=== PATIENT | male | born 1980 | race Caucasian/White ===

== ENCOUNTER 2016-06-09 01:37 | Emergency (ER) | payer BC ==
[2016-06-09 01:41] VITALS: RESP 18; TEMP 97.7
[2016-06-09] MEDS ORDERED: SODIUM CHLORIDE 0.9% 500 ML IV STA (02:02)
[2016-06-09] MEDS ORDERED: ONDANSETRON 4 MG/2 ML VIAL IVP STA (02:02)
[2016-06-09] MEDS ORDERED: HYDROmorphone 1 MG/ML 1 ML SYRINGE IVP STA ×2 (02:02→04:08)
[2016-06-09 02:51] LABS: Basophils # (A) 0.1 k/uL (0-0.2); Basophils % (A) 1 %; CH 32.8; CHCM 36.2; Eosinophils # (A) 0.5 k/uL (0-0.7); Eosinophils % (A) 5 %; HCT 50.6 % (39.0-53.0); HDW 2.82; HGB 17.4 gm/dL (13.0-17.5); Luc # (Auto) 0.16; Luc % (Auto) 2; Lymphocytes # (A) 2.8 k/uL (1.0-4.8); Lymphocytes % (A) 26 %; MCH 31.3 pg (25.0-35.0); MCHC 34.4 g/dL (31.0-37.0); MCV 90.9 fL (80.0-100.0); Mean Platelet Volume 8.5; Monocytes # (A) 0.7 k/uL (0-1.0); Monocytes % (A) 7 %; Neutrophils # (A) 6.3 k/uL (1.3-7.7); Neutrophils % (A) 60 %; RBC 5.57 m/uL (4.30-5.90); RDW 12.8 % (11.5-15.5); WBC 10.6 k/uL (3.8-10.6); WBC (Perox) 9.75
[2016-06-09 02:57] LABS: ALT 55 U/L (21-72); AST 23 U/L (17-59); Alkaline Phosphatase 83 U/L (38-126); Amylase <30 U/L (30-110); Anion Gap 11 mmol/L; Blood Urea Nitrogen 16 mg/dL (9-20); Calcium 9.7 mg/dL (8.4-10.2); Carbon Dioxide 24 mmol/L (22-30); Chloride 106 mmol/L (98-107); Glucose 117 mg/dL (74-99); Non-African American GFR(MDRD) >60 (>60 ml/min/1.73 sqM); Potassium 4.3 mmol/L (3.5-5.1); Sodium 141 mmol/L (137-145); Total Bilirubin 1.2 mg/dL (0.2-1.3); Total Protein 6.9 g/dL (6.3-8.2)
[2016-06-09] MEDS ORDERED: RX INFO: IV CONTRAST WAS GIVEN 1 EACH MISC MISCELLANE PRN (03:13)
--- NOTE | 2016-06-09 03:13 | XR ---
EXAM: XR Abdomen, 1 View. CLINICAL HISTORY: Reason: abdominal pain TECHNIQUE: Two frontal views to include the abdomen and pelvis, both labeled upright, were provided. COMPARISON: No relevant prior studies available. FINDINGS: Gastrointestinal tract: Small air-fluid levels in the left upper quadrant and overlying the upper abdomen, which appear to be gastric and/or proximal small bowel without obvious dilatation, nor free air. Bones: Unremarkable. No acute fracture. IMPRESSION: Nonspecific bowel gas pattern, given the air-fluid levels within seemingly nondilated stomach and perhaps duodenum, without evidence of free air seen. Findings could be correlated and followed clinically to guide further imaging follow-up if clinically indicated.
--- NOTE | 2016-06-09 03:17 | ED ---
Abdominal Pain HPI - General Chief Complaint: Abdominal Pain Stated Complaint: Upper Abd pain Time Seen by Provider: 06/09/16 01:55 Source: patient, RN notes reviewed Mode of arrival: ambulatory Limitations: no limitations - History of Present Illness Initial Comments: 35-year-old male presents emergency Department chief complaint of epigastric pain. Patient states his sudden onset of pain that will come off. Patient states it starts in his epigastric region and radiates straight to his back. Patient states never any like this in the past. Patient denies any chest pain or shortness of breath. Patient had a pyloric stenosis as an in which he had surgery. He states the pain is pretty above his incision. Patient has no known hernias. Denies any diarrhea or constipation but states he does have some nausea at this time. Patient denies any symptoms and I feel better or worse. - Related Data Previous Rx's Medication Instructions Recorded Hydrocodone/Acetaminophen [[place] 1 tab PO Q6HR PRN #15 tab 06/09/16 5-325] Ondansetron Odt [Zofran Odt] 4 mg PO Q8HR PRN #10 tab 06/09/16 Allergies Allergy/AdvReac Type Severity Reaction Status Date / Time No Known Allergies Allergy Verified 06/09/16 01:41 Review of Systems ROS Statement: Those systems with pertinent positive or pertinent negative responses have been documented in the HPI. ROS Other: All systems not noted in ROS Statement are negative. Past Medical History Past Medical History: Hypertension Additional Past Medical History / Comment(s): IBS; pyloric stenosis as infant History of Any Multi-Drug Resistant Organisms: None Reported Past Surgical History: Hernia Repair, Orthopedic Surgery Additional Past Surgical History / Comment(s): Knee surgery bilateral mostly right Past Psychological History: No Psychological Hx Reported Smoking Status: Current every day smoker Past Alcohol Use History: Occasional Past Drug Use History: None Reported General Exam Limitations: no limitations General appearance: alert, in no apparent distress Head exam: Present: atraumatic, normocephalic, normal inspection Respiratory exam: Present: normal lung sounds bilaterally. Absent: respiratory distress, wheezes, rales, rhonchi, stridor Cardiovascular Exam: Present: regular rate, normal rhythm, normal heart sounds. Absent: systolic murmur, diastolic murmur, rubs, gallop, clicks GI/Abdominal exam: Present: soft, tenderness (Moderate epigastric tenderness), normal bowel sounds. Absent: distended, guarding, rebound, rigid Back exam: Absent: CVA tenderness (R), CVA tenderness (L) Neurological exam: Present: alert, oriented X3, CN II-XII intact Skin exam: Present: warm, dry, intact, normal color. Absent: rash Course Vital Signs 06/09/16 01:38 Temperature 97.7 F Pulse Rate 91 Respiratory 18 Rate Blood Pressure 176/113 O2 Sat by Pulse 97 Oximetry Medical Decision Making - Medical Decision Making 35-year-old male present emergency from for epigastric pain. Patient CT does show some mild thickening of his gallbladder wall with no signs of infection. Patient is nontender his right upper quadrant. Patient is has tender in his epigastric region. This may be related to esophageal spasm. Patient was given GI cocktail, additional pain medications and discharge. Patient will follow-up with his GI DrJewel Altamirano or on-call surgeon Dr. Gibbons. Return parameters were discussed. Patient agrees to plan. Case discussed with Dr. Cano. - Lab Data Result diagrams: 06/09/16 02:30 06/09/16 02:30 Lab Results 06/09/16 06/09/16 06/09/16 Range/Units 02:30 02:30 02:30 WBC 10.6 (3.8-10.6) k/uL RBC 5.57 (4.30-5.90) m/uL Hgb 17.4 (13.0-17.5) gm/dL Hct 50.6 (39.0-53.0) % MCV 90.9 (80.0-100.0) fL MCH 31.3 (25.0-35.0) pg MCHC 34.4 (31.0-37.0) g/dL RDW 12.8 (11.5-15.5) % Plt Count 233 (150-450) k/uL Neutrophils % 60 % Lymphocytes % 26 % Monocytes % 7 % Eosinophils % 5 % Basophils % 1 % Neutrophils # 6.3 (1.3-7.7) k/uL Lymphocytes # 2.8 (1.0-4.8) k/uL Monocytes # 0.7 (0-1.0) k/uL Eosinophils # 0.5 (0-0.7) k/uL Basophils # 0.1 (0-0.2) k/uL Sodium 141 (137-145) mmol/L Potassium 4.3 (3.5-5.1) mmol/L Chloride 106 (98-107) mmol/L Carbon Dioxide 24 (22-30) mmol/L Anion Gap 11 mmol/L BUN 16 (9-20) mg/dL Creatinine 0.90 (0.66-1.25) mg/dL Est GFR (MDRD) Af Amer >60 (>60 ml/min/1.73 sqM) Est GFR (MDRD) Non-Af >60 (>60 ml/min/1.73 sqM) Glucose 117 H (74-99) mg/dL Calcium 9.7 (8.4-10.2) mg/dL Total Bilirubin 1.2 (0.2-1.3) mg/dL AST 23 (17-59) U/L ALT 55 (21-72) U/L Alkaline Phosphatase 83 (38-126) U/L Troponin I <0.012 (0.000-0.034) ng/mL Total Protein 6.9 (6.3-8.2) g/dL Albumin 4.1 (3.5-5.0) g/dL Amylase <30 L (30-110) U/L Lipase 60 (23-300) U/L Urine Color Urine Appearance (Clear) Urine pH (5.0-8.0) Ur Specific [place] (1.001-1.035) Urine Protein (Negative) Urine Glucose (UA) (Negative) Urine Ketones (Negative) Urine Blood (Negative) Urine Nitrate (Negative) Urine Bilirubin (Negative) Urine Urobilinogen (<2.0) mg/dL Ur Leukocyte Esterase (Negative) 06/09/16 Range/Units 03:55 WBC (3.8-10.6) k/uL RBC (4.30-5.90) m/uL Hgb (13.0-17.5) gm/dL Hct (39.0-53.0) % MCV (80.0-100.0) fL MCH (25.0-35.0) pg MCHC (31.0-37.0) g/dL RDW (11.5-15.5) % Plt Count (150-450) k/uL Neutrophils % % Lymphocytes % % Monocytes % % Eosinophils % % Basophils % % Neutrophils # (1.3-7.7) k/uL Lymphocytes # (1.0-4.8) k/uL Monocytes # (0-1.0) k/uL Eosinophils # (0-0.7) k/uL Basophils # (0-0.2) k/uL Sodium (137-145) mmol/L Potassium (3.5-5.1) mmol/L Chloride (98-107) mmol/L Carbon Dioxide (22-30) mmol/L Anion Gap mmol/L BUN (9-20) mg/dL Creatinine (0.66-1.25) mg/dL Est GFR (MDRD) Af Amer (>60 ml/min/1.73 sqM) Est GFR (MDRD) Non-Af (>60 ml/min/1.73 sqM) Glucose (74-99) mg/dL Calcium (8.4-10.2) mg/dL Total Bilirubin (0.2-1.3) mg/dL AST (17-59) U/L ALT (21-72) U/L Alkaline Phosphatase (38-126) U/L Troponin I (0.000-0.034) ng/mL Total Protein (6.3-8.2) g/dL Albumin (3.5-5.0) g/dL Amylase (30-110) U/L Lipase (23-300) U/L Urine Color Yellow Urine Appearance Clear (Clear) Urine pH 5.5 (5.0-8.0) Ur Specific [place] 1.018 (1.001-1.035) Urine Protein Negative (Negative) Urine Glucose (UA) Negative (Negative) Urine Ketones Negative (Negative) Urine Blood Negative (Negative) Urine Nitrate Negative (Negative) Urine Bilirubin Negative (Negative) Urine Urobilinogen <2.0 (<2.0) mg/dL Ur Leukocyte Esterase Negative (Negative) 06/09/16 03:52 EKG performed at 2:13 normal sinus rhythm with a rate of 84, WA 150, QRS duration 84, QT/QTC 366/432 Disposition Clinical Impression: Abdominal pain Disposition: HOME SELF-CARE Condition: Stable Instructions: Abdominal Pain (ED) Additional Instructions: Please return to the Emergency Department if symptoms worsen or any other concerns. Prescriptions: Hydrocodone/Acetaminophen [[place] 5-325] 1 tab PO Q6HR PRN #15 tab PRN Reason: Pain Ondansetron Odt [Zofran Odt] 4 mg PO Q8HR PRN #10 tab PRN Reason: Nausea Referrals: Luis Eduardo Pa MD [Primary Care Provider] - 1-2 days Shakir Salceod MD [STAFF PHYSICIAN] - 1-2 days Rupal Altamirano MD [STAFF PHYSICIAN] - 1-2 days Time of Disposition: 04:09
--- NOTE | 2016-06-09 03:56 | CT ---
EXAM: CT Abdomen and Pelvis With Intravenous Contrast. CLINICAL HISTORY: Reason: Pain TECHNIQUE: Axial computed tomography images of the abdomen and pelvis with intravenous contrast. CTDI is 79.80 mGy and DLP is 3245.20 mGy-cm COMPARISON: Abdominal plain films of the same day; previous 11/26/13 right upper quadrant ultrasound. FINDINGS: Lower thorax: No acute findings. ABDOMEN: Liver: The liver appears uniform without hepatomegaly present. Gallbladder and bile ducts: Mild uniform generalized gallbladder wall thickening without evidence of gallbladder dilatation, gallstones or definitive pericholecystic stranding. Pancreas: Mild generalized pancreatic parenchymal phase replacement. No ductal dilation. Spleen: Unremarkable. No splenomegaly. Adrenals: Unremarkable. No mass. Kidneys and ureters: Subcentimeter hypodense focus in the posterior left upper pole kidney is too small to accurately characterize, statistically a small cyst. There is a 3 mm nonobstructing stone in the left lower pole kidney. The kidneys are otherwise symmetric. PELVIS: Bladder: Unremarkable. No mass. Reproductive: Note is made of calcifications centrally within the prostate gland to the right and left of midline. Appendix: No findings to suggest acute appendicitis. ABDOMEN + PELVIS: Stomach and bowel: No current evidence of intestinal obstruction. Assessment is slightly more limited in the absence of enteric contrast. Peritoneum: Unremarkable. No significant fluid collection. No free air. Lymph nodes: There is a single borderline prominent right upper quadrant precaval node measuring 14 mm short axis diameter on image 29. Vasculature: Unremarkable. No aortic aneurysm. Bones: There are mild degenerative changes. No acute fracture. IMPRESSION: 1. Nonspecific mild generalized gallbladder wall thickening which may be due to intrinsic gallbladder pathology, perhaps chronic rather than acute cholecystitis given the absence of ancillary findings, or on a secondary basis in relation to ongoing hepatic, cardiac or renal related disease for example. Correlate clinically to guide further imaging follow-up as clinically indicated. 2. A single borderline prominent right upper quadrant node is nonspecific although may be related to this same process. 3. No evidence of intestinal obstruction, free air or abscess.
[2016-06-09 04:03] LABS: Appearance,Urine Clear (Clear); Bilirubin,Urine Negative (Negative); Glucose,Urine (UA) Negative (Negative); Ketones,Urine Negative (Negative); Leukocyte Esterase,Urine Negative (Negative); Nitrite,Urine Negative (Negative); PH, Urine 5.5 (5.0-8.0); Protein,Urine Negative (Negative); Specific Gravity,Urine 1.018 (1.001-1.035); UA Billing (MACRO vs. MICRO) CHEM; Urobilinogen,Urine <2.0 mg/dL (<2.0)
[2016-06-09] MEDS ORDERED: MAG HYDROX/AL HYDROX/SIMETH 30 ML, HYOSCYAMINE ELIXIR 10 ML, CIMETIDINE HCL 300 MG PO STA ×3 (04:08)
[2016-06-09 05:34] VITALS: BP 169/99; PULSE 88
== END 2016-06-09 04:36 | disposition home or self-care (01) ==
LOC: EC 01:37
DX: R10.13 Epigastric pain (principal); F17.200 Nicotine dependence, unspecified, uncomplicated
CPT/HCPCS: 36415; 93005; 80053; 82150; 83690; 84484; 85025; 81003; 74000; 74177; 99284; 96374; 96375; 96376; 96361; J2405; J1170; Q9967

== ENCOUNTER → 2016-09-21 | Outpatient (CLI) | payer BC ==
--- NOTE | 2016-09-21 08:37 | US ---
EXAMINATION TYPE: US abdomen complete DATE OF EXAM: 09/21/2016 COMPARISON: Previous examination dated 11/26/2013. CLINICAL HISTORY: R10.9 Abdominal pain. Pt states epigastric pain EXAM MEASUREMENTS: Liver Length: 19.0 cm Gallbladder Wall: 0.3 cm CBD: 0.5 cm Spleen: 13.4 cm Right Kidney: 11.4 x 5.0 x 6.0 cm Left Kidney: 12.9 x 6.0 x 5.8 cm Pancreas: Obscured by bowel gas Liver: Enlarged, heterogeneous Gallbladder: Non-mobile gallstone at neck Evidence for sonographic Borrego's sign: No CBD: wnl Spleen: Enlarged Right Kidney: wnl Left Kidney: wnl Upper IVC: wnl Abd Aorta: wnl The pancreas is poorly visualized. The liver is enlarged measuring 19 cm. The echotexture of the liver is mildly coarsened. There is a nonmobile, 1.4 cm calculus in the neck of the gallbladder. The gallbladder wall is upper l imits of normal in size and thickness measuring 3 mm. The distal common hepatic duct is normal measur ing 5 mm. The spleen is upper limits of normal in size measuring 13 cm. Both kidneys are unremarkable. Visualized portions of the aorta and IVC are normal. IMPRESSION: CHOLELITHIASIS.
== END | disposition home or self-care (01) ==
LOC: RADUSWWP 06:50
PROVIDERS: ATTEND Family Medicine
DX: K80.20 Calculus of gallbladder without cholecystitis without obstruction (principal)
CPT/HCPCS: 76700

== ENCOUNTER 2017-03-15 02:39 | Emergency (ER) | payer BC ==
[2017-03-15] MEDS ORDERED: ONDANSETRON 4 MG/2 ML VIAL IVP STA (02:59)
[2017-03-15] MEDS ORDERED: SODIUM CHLORIDE 0.9% 500 ML IV STA (02:59)
[2017-03-15] MEDS ORDERED: RX INFO: IV CONTRAST WAS GIVEN 1 EACH MISC MISCELLANE PRN (02:59)
[2017-03-15] MEDS ORDERED: FAMOTIDINE 20 MG/2 ML VIAL IV STA (02:59)
[2017-03-15] MEDS ORDERED: HYDROmorphone 1 MG/ML 1 ML SYRINGE IVP STA (02:59)
--- NOTE | 2017-03-15 03:02 | ED ---
General Adult HPI - General Source: patient, family, RN notes reviewed Mode of arrival: ambulatory Limitations: no limitations <Mare Islas - Last Filed: 03/15/17 03:32> <Tonny Shaver - Last Filed: 03/15/17 05:07> - General Chief complaint: Abdominal Pain Stated complaint: Abd pain Time Seen by Provider: 03/15/17 02:47 - History of Present Illness Initial comments: 36-year-old male presents emergency 5 chief complaint of epigastric abdominal pain. Patient states she's had this pain about 2 times in the past and was told that this is gallbladder. He's had ultrasounds and CAT scans of the area. He states the pain then came on again tonight. It starts in the center of the epigastric area and radiates to the back. States he's had nausea without vomiting. No diarrhea. Patient states it hurts a little bit when you touch the upper area but the pressure also does cause some relief as well. He denies any fever or chills. He states he is not currently having any other symptoms at this time. They were concerned due to the patient's discomfort so without that they should be evaluated. Patient denies any recent fever, chills, shortness of breath, chest pain, back pain, vomiting, numbness or tingling, dysuria or hematuria, constipation or diarrhea, headaches or visual changes, or any other current symptoms. (Mare Islas) - Related Data Home Medications Medication Instructions Recorded Confirmed Lisinopril-Hctz 10-12.5 mg 1 tab PO DAILY 03/15/17 03/15/17 [Zestoretic 10-12.5] Previous Rx's Medication Instructions Recorded Dicyclomine [Bentyl] 10 mg PO TID PRN #15 capsule 03/15/17 Pantoprazole Sodium [Protonix] 20 mg PO DAILY #14 tablet. 03/15/17 Allergies Allergy/AdvReac Type Severity Reaction Status Date / Time No Known Allergies Allergy Verified 03/15/17 02:45 Review of Systems ROS Other: All systems not noted in ROS Statement are negative. <Mare Islas - Last Filed: 03/15/17 03:32> ROS Other: All systems not noted in ROS Statement are negative. <Tonny Shaver - Last Filed: 03/15/17 05:07> ROS Statement: Those systems with pertinent positive or pertinent negative responses have been documented in the HPI. Past Medical History Past Medical History: Hypertension Additional Past Medical History / Comment(s): IBS; pyloric stenosis as infant History of Any Multi-Drug Resistant Organisms: None Reported Past Surgical History: Hernia Repair, Orthopedic Surgery Additional Past Surgical History / Comment(s): Knee surgery bilateral mostly right Past Psychological History: No Psychological Hx Reported Smoking Status: Current every day smoker Past Alcohol Use History: Occasional Past Drug Use History: None Reported <Mare Islas - Last Filed: 03/15/17 03:32> General Exam Limitations: no limitations <Mare Islas - Last Filed: 03/15/17 03:32> <Tonny Shaver - Last Filed: 03/15/17 05:07> - General Exam Comments Initial Comments: General: The patient is awake and alert, in no distress, and does not appear acutely ill. Eye: Pupils are equal, round and reactive to light, extra-ocular movements are intact; there is normal conjunctiva bilaterally. No signs of icterus. Ears, nose, mouth and throat: There are moist mucous membranes and no oral lesions. Neck: The neck is supple, there is no tenderness. Cardiovascular: There is a regular rate and rhythm. No murmur, rub or gallop is appreciated. Respiratory: Lungs are clear to auscultation, respirations are non-labored, breath sounds are equal. No wheezes, stridor, rales, or rhonchi. Gastrointestinal: Soft, non-distended, non-tender abdomen without masses or organomegaly noted. There is no rebound or guarding present. No CVA tenderness. Bowel sounds are unremarkable. Back: There is no tenderness to palpation in the midline. There is no obvious deformity. No rashes noted. Musculoskeletal: Normal ROM, no tenderness, There is no pedal edema. There is no calf tenderness or swelling. Sensation intact. Pulses equal bilaterally 2+. Neurological: CN II-XII intact, There are no obvious motor or sensory deficits. Coordination appears grossly intact. Speech is normal. Skin: Skin is warm and dry and no rashes or lesions are noted. Psychiatric: Cooperative, appropriate mood & affect, normal judgment. (Mare Islas) Course <Mare Islas - Last Filed: 03/15/17 03:32> <Tonny Shaver - Last Filed: 03/15/17 05:07> Vital Signs 03/15/17 03/15/17 03/15/17 02:43 03:39 04:45 Temperature 97.2 F L Pulse Rate 93 91 84 Respiratory 18 20 17 Rate Blood Pressure 202/106 160/83 158/91 O2 Sat by Pulse 97 96 96 Oximetry - Reevaluation(s) Reevaluation #1: 03/15/17 05:03 I did discuss findings with the patient initially had about 5/10 pain he did respond to Toradol and felt much improved patient does have a history of IBS. I did explain the lab and CAT scan results were. He does demonstrate a stone that is nonobstructive on the left. He will be discharged I will place him back on his Bentyl also a proton pump inhibitor is a follow-up with his doctor return when necessary I did suggest a HIDA scan. He did have a ultrasound which did show gallstones apparently in the past. This is not evident on his current CAT scan. (Tonny Shaver) EKG Findings - EKG Comments: EKG Findings:: normal sinus rhythm 94 bpm, normal axis, no atopy, no S-T depressions or elevations, prolonged QT, T-wave inversion in V3 V4 V5 and V6 <Mare Islas - Last Filed: 03/15/17 03:32> Medical Decision Making - Lab Data Result diagrams: 03/15/17 02:54 03/15/17 02:54 <Mare Islas - Last Filed: 03/15/17 03:32> - Lab Data Result diagrams: 03/15/17 02:54 03/15/17 02:54 <Tonny Shaver - Last Filed: 03/15/17 05:07> - Medical Decision Making 36-year-old male presents emergency Department chief complaint of epigastric abdominal pain. (Mare Islas) - Lab Data Lab Results 03/15/17 03/15/17 03/15/17 Range/Units 02:54 02:54 02:54 WBC 10.4 (3.8-10.6) k/uL RBC 5.43 (4.30-5.90) m/uL Hgb 17.3 (13.0-17.5) gm/dL Hct 48.2 (39.0-53.0) % MCV 88.8 (80.0-100.0) fL MCH 31.9 (25.0-35.0) pg MCHC 35.9 (31.0-37.0) g/dL RDW 12.5 (11.5-15.5) % Plt Count 268 (150-450) k/uL Neutrophils % 55 % Lymphocytes % 31 % Monocytes % 5 % Eosinophils % 5 % Basophils % 1 % Neutrophils # 5.7 (1.3-7.7) k/uL Lymphocytes # 3.2 (1.0-4.8) k/uL Monocytes # 0.5 (0-1.0) k/uL Eosinophils # 0.6 (0-0.7) k/uL Basophils # 0.1 (0-0.2) k/uL Sodium 138 (137-145) mmol/L Potassium 4.4 (3.5-5.1) mmol/L Chloride 107 (98-107) mmol/L Carbon Dioxide 22 (22-30) mmol/L Anion Gap 9 mmol/L BUN 14 (9-20) mg/dL Creatinine 0.90 (0.66-1.25) mg/dL Est GFR (MDRD) Af Amer >60 (>60 ml/min/1.73 sqM) Est GFR (MDRD) Non-Af >60 (>60 ml/min/1.73 sqM) Glucose 120 H (74-99) mg/dL Calcium 10.0 (8.4-10.2) mg/dL Total Bilirubin 1.4 H (0.2-1.3) mg/dL AST 27 (17-59) U/L ALT 75 H (21-72) U/L Alkaline Phosphatase 86 (38-126) U/L Total Creatine Kinase 65 (55-170) U/L CK-MB (CK-2) 0.5 (0.0-2.4) ng/mL CK-MB (CK-2) Rel Index 0.8 Troponin I <0.012 (0.000-0.034) ng/mL Total Protein 7.1 (6.3-8.2) g/dL Albumin 4.2 (3.5-5.0) g/dL Amylase <30 L (30-110) U/L Lipase 76 (23-300) U/L Urine Color Urine Appearance (Clear) Urine pH (5.0-8.0) Ur Specific [place] (1.001-1.035) Urine Protein (Negative) Urine Glucose (UA) (Negative) Urine Ketones (Negative) Urine Blood (Negative) Urine Nitrite (Negative) Urine Bilirubin (Negative) Urine Urobilinogen (<2.0) mg/dL Ur Leukocyte Esterase (Negative) Urine RBC (0-5) /hpf Urine WBC (0-5) /hpf Ur Squamous Epith Cells (0-4) /hpf Urine Mucus (None) /hpf 03/15/17 Range/Units 04:07 WBC (3.8-10.6) k/uL RBC (4.30-5.90) m/uL Hgb (13.0-17.5) gm/dL Hct (39.0-53.0) % MCV (80.0-100.0) fL MCH (25.0-35.0) pg MCHC (31.0-37.0) g/dL RDW (11.5-15.5) % Plt Count (150-450) k/uL Neutrophils % % Lymphocytes % % Monocytes % % Eosinophils % % Basophils % % Neutrophils # (1.3-7.7) k/uL Lymphocytes # (1.0-4.8) k/uL Monocytes # (0-1.0) k/uL Eosinophils # (0-0.7) k/uL Basophils # (0-0.2) k/uL Sodium (137-145) mmol/L Potassium (3.5-5.1) mmol/L Chloride (98-107) mmol/L Carbon Dioxide (22-30) mmol/L Anion Gap mmol/L BUN (9-20) mg/dL Creatinine (0.66-1.25) mg/dL Est GFR (MDRD) Af Amer (>60 ml/min/1.73 sqM) Est GFR (MDRD) Non-Af (>60 ml/min/1.73 sqM) Glucose (74-99) mg/dL Calcium (8.4-10.2) mg/dL Total Bilirubin (0.2-1.3) mg/dL AST (17-59) U/L ALT (21-72) U/L Alkaline Phosphatase (38-126) U/L Total Creatine Kinase (55-170) U/L CK-MB (CK-2) (0.0-2.4) ng/mL CK-MB (CK-2) Rel Index Troponin I (0.000-0.034) ng/mL Total Protein (6.3-8.2) g/dL Albumin (3.5-5.0) g/dL Amylase (30-110) U/L Lipase (23-300) U/L Urine Color Yellow Urine Appearance Clear (Clear) Urine pH 6.0 (5.0-8.0) Ur Specific [place] >1.050 H (1.001-1.035) Urine Protein 1+ H (Negative) Urine Glucose (UA) Negative (Negative) Urine Ketones Negative (Negative) Urine Blood Negative (Negative) Urine Nitrite Negative (Negative) Urine Bilirubin Negative (Negative) Urine Urobilinogen <2.0 (<2.0) mg/dL Ur Leukocyte Esterase Negative (Negative) Urine RBC 1 (0-5) /hpf Urine WBC 1 (0-5) /hpf Ur Squamous Epith Cells 2 (0-4) /hpf Urine Mucus Rare H (None) /hpf Disposition <Mare Islas - Last Filed: 03/15/17 03:32> <Tonny Shaver - Last Filed: 03/15/17 05:07> Clinical Impression: Abdominal pain Disposition: HOME SELF-CARE Condition: Good Instructions: Abdominal Pain (ED) Prescriptions: Dicyclomine [Bentyl] 10 mg PO TID PRN #15 capsule PRN Reason: Pain Pantoprazole Sodium [Protonix] 20 mg PO DAILY #14 tablet.dr Referrals: Luis Eduardo Pa MD [Primary Care Provider] - 1-2 days
[2017-03-15 03:17] LABS: Basophils # (A) 0.1 k/uL (0-0.2); Basophils % (A) 1 %; CH 32.2; CHCM 36.4; Eosinophils # (A) 0.6 k/uL (0-0.7); Eosinophils % (A) 5 %; HCT 48.2 % (39.0-53.0); HDW 2.93; HGB 17.3 gm/dL (13.0-17.5); Luc % (Auto) 3; Lymphocytes # (A) 3.2 k/uL (1.0-4.8); Lymphocytes % (A) 31 %; MCH 31.9 pg (25.0-35.0); MCHC 35.9 g/dL (31.0-37.0); MCV 88.8 fL (80.0-100.0); Mean Platelet Volume 7.9; Monocytes # (A) 0.5 k/uL (0-1.0); Monocytes % (A) 5 %; Neutrophils # (A) 5.7 k/uL (1.3-7.7); Neutrophils % (A) 55 %; RBC 5.43 m/uL (4.30-5.90); RDW 12.5 % (11.5-15.5); WBC 10.4 k/uL (3.8-10.6); WBC (Perox) 9.94
[2017-03-15 03:24] LABS: ALT 75 U/L (21-72); AST 27 U/L (17-59); Alkaline Phosphatase 86 U/L (38-126); Amylase <30 U/L (30-110); Anion Gap 9 mmol/L; Blood Urea Nitrogen 14 mg/dL (9-20); Carbon Dioxide 22 mmol/L (22-30); Chloride 107 mmol/L (98-107); Glucose 120 mg/dL (74-99); Non-African American GFR(MDRD) >60 (>60 ml/min/1.73 sqM); Potassium 4.4 mmol/L (3.5-5.1); Sodium 138 mmol/L (137-145); Total Bilirubin 1.4 mg/dL (0.2-1.3); Total Protein 7.1 g/dL (6.3-8.2)
[2017-03-15] MEDS ORDERED: HYDROmorphone 0.5 MG/0.5 ML SYRINGE IVP STA (03:37)
[2017-03-15 03:46] LABS: Creatine Kinase 65 U/L (55-170)
[2017-03-15 03:59] LABS: Creatine Kinase MB 0.5 ng/mL (0.0-2.4); Troponin I <0.012 ng/mL (0.000-0.034)
--- NOTE | 2017-03-15 04:19 | CT ---
EXAM: CT Abdomen and Pelvis With Intravenous Contrast CLINICAL HISTORY: Reason: Pain TECHNIQUE: Axial computed tomography images of the abdomen and pelvis with intravenous contrast. CTDI is 52.2 mGy and DLP is 3549 mGy-cm. This CT exam was performed using one or more of the following dose reduction techniques: automated exposure control, adjustment of the mA and/or kV according to patient size, and/or use of iterative reconstruction technique. Coronal and sagittal reformatted images were created and reviewed. COMPARISON: 06/09/16 FINDINGS: Lower thorax: No acute findings. ABDOMEN: Liver: Unremarkable. No mass. Gallbladder and bile ducts: Unremarkable. No calcified stones. No ductal dilation. Pancreas: Unremarkable. No mass. No ductal dilation. Spleen: Unremarkable. No splenomegaly. Adrenals: Unremarkable. No mass. Kidneys and ureters: 8 mm left lower pole renal stone. No evidence for hydronephrosis. Stomach and bowel: Unremarkable. No obstruction. No mucosal thickening. Appendix: No findings to suggest acute appendicitis. PELVIS: Bladder: Unremarkable. No mass. Reproductive: Unremarkable as visualized. ABDOMEN and PELVIS: Intraperitoneal space: Unremarkable. No free air. No significant fluid collection. Bones/joints: Chronic grade 1 retrolisthesis L5 on S1. Minimal degenerative disc disease changes. No acute fracture. No dislocation. Soft tissues: Small fatty left inguinal hernia. Vasculature: Unremarkable. No abdominal aortic aneurysm. Lymph nodes: Unremarkable. No enlarged lymph nodes. IMPRESSION: 1. Nonobstructing left nephrolithiasis. 2. No acute CT findings.
[2017-03-15 04:20] LABS: Appearance,Urine Clear (Clear); Bilirubin,Urine Negative (Negative); Glucose,Urine (UA) Negative (Negative); Ketones,Urine Negative (Negative); Leukocyte Esterase,Urine Negative (Negative); Mucus,Urine Rare /hpf; Nitrite,Urine Negative (Negative); Particle Count 689; Protein,Urine 1+ (Negative); RBC,Urine 1 /hpf (0-5); Squamous Epithelial Cell,Urine 2 /hpf (0-4); UA Billing (MACRO vs. MICRO) MICRO; Urobilinogen,Urine <2.0 mg/dL (<2.0); WBC,Urine 1 /hpf (0-5)
[2017-03-15 04:21] LABS: Specific Gravity,Urine >1.050 (1.001-1.035)
[2017-03-15] MEDS ORDERED: KETOROLAC 30 MG/ML 1 ML VIAL IVP STA (04:36)
[2017-03-15 04:45] VITALS: BP 158/91; PULSE 84; RESP 17
[2017-03-15 05:25] VITALS: TEMP 97.5
== END 2017-03-15 05:13 | disposition home or self-care (01) ==
LOC: EC 02:39
DX: R10.13 Epigastric pain (principal); M54.9 Dorsalgia, unspecified; R11.0 Nausea; I10 Essential (primary) hypertension; F17.200 Nicotine dependence, unspecified, uncomplicated; Z79.899 Other long term (current) drug therapy
CPT/HCPCS: 36415; 93005; 80053; 82150; 82550; 82553; 83690; 84484; 85025; 81001; 74177; 99284; 96374; 96375 ×3; J2405; J1885; Q9967; J1170

== ENCOUNTER → 2017-04-05 | Outpatient (CLI) | payer BC ==
--- NOTE | 2017-04-06 07:49 | ECHOF ---
Referral Reason:R94.31 Abnormal EKG MEASUREMENTS -------- HEIGHT: 177.8 cm WEIGHT: 145.1 kg BP: 168/85 RVIDd: 3.3 cm (< 3.3) IVSd: 1.3 cm (0.6 - 1.1) LVIDd: 3.9 cm (3.9 - 5.3) LVPWd: 1.3 cm (0.6 - 1.1) IVSs: 1.9 cm LVIDs: 2.6 cm LVPWs: 2.0 cm LA Diam: 2.7 cm (2.7 - 3.8) LAESV Index (A-L): 14.41 ml/m Ao Diam: 3.8 cm (2.0 - 3.7) AV Cusp: 2.4 cm (1.5 - 2.6) MV EXCURSION: 24.707 mm (> 18.000) MV EF SLOPE: 189 mm/s (70 - 150) EPSS: 0.4 cm MV E Enrique: 0.73 m/s MV DecT: 174 ms MV A Enrique: 0.76 m/s MV E/A Ratio: 0.97 FINDINGS -------- Sinus rhythm. This was a technically adequate study. The left ventricular size is normal. There is mild concentric left ventricular hypertrophy. Overa ll left ventricular systolic function is normal with, an EF between 55 - 60 %. The right ventricle is mildly enlarged. Normal LA size by volume 22+/-6 ml/m2. The right atrium is normal in size. The aortic valve was not well visualized. Mild mitral annular calcification present. The tricuspid valve appears structurally normal. The pulmonic valve was not well visualized. The aortic root is dilated measuring 3.8cm. IVC Not well visulized. There is no pericardial effusion. CONCLUSIONS -------- 1. Sinus rhythm. 2. This was a technically adequate study. 3. The left ventricular size is normal. 4. There is mild concentric left ventricular hypertrophy. 5. Overall left ventricular systolic function is normal with, an EF between 55 - 60 %. 6. The right ventricle is mildly enlarged. 7. Normal LA size by volume 22+/-6 ml/m2. 8. The right atrium is normal in size. 9. The aortic valve was not well visualized. 10. Mild mitral annular calcification present. 11. The tricuspid valve appears structurally normal. 12. The pulmonic valve was not well visualized. 13. The aortic root is dilated measuring 3.8cm. 14. IVC Not well visulized. 15. There is no pericardial effusion. GIFT SHOP ASSISTANT: Leah Marroquin RDCS
== END | disposition home or self-care (01) ==
LOC: RADECHMAIN 11:15
PROVIDERS: ATTEND Family Medicine
DX: I05.9 Rheumatic mitral valve disease, unspecified (principal); I51.7 Cardiomegaly
CPT/HCPCS: 93306

== ENCOUNTER → 2017-09-07 | Outpatient (CLI) | payer BC ==
--- NOTE | 2017-09-07 08:11 | US ---
EXAMINATION TYPE: US scrotum with doppler. Grayscale and color Doppler Duplex imaging performed of t zaheer scrotum. DATE OF EXAM: 09/07/2017 COMPARISON: NONE CLINICAL HISTORY: N50.819 Testicular pain. EXAM MEASUREMENTS: TESTICLES: Right Testicle: 5.1 x 3.0 x3.7 cm Left Testicle: 5.2 x 3.0 x 3.9 cm Doppler performed to assess for testicular vascularity; good bilateral color flow and waveforms are s een. There is no evidence of testicular torsion. Presence of hydroceles: no Presence of varicoceles: no IMPRESSION: No significant abnormality is appreciated at this time.
== END | disposition home or self-care (01) ==
LOC: RADUSWWP 06:55
PROVIDERS: ATTEND Family Medicine
DX: N50.819 Testicular pain, unspecified (principal)
CPT/HCPCS: 76870; 93975

== ENCOUNTER 2017-10-12 09:14 | Day surgery (SDC) | payer BC ==
[2017-10-07 11:29] VITALS: BMI 45.9
[2017-10-12] MEDS ORDERED: LACTATED RINGERS 1,000 ML IV SCH (10:35)
[2017-10-12 10:51] VITALS: TEMP 97.1
[2017-10-12] MEDS ORDERED: PROPOFOL 10 MG/ML 20 ML VIAL IV ONE (10:54)
--- NOTE | 2017-10-12 11:13 | P.PCN ---
Date of Procedure: 10/12/17 Procedure(s) Performed: BRIEF HISTORY: Patient is a 36-year-old pleasant white male, scheduled for an elective colonoscopy as a part of evaluation of chronic diarrhea for the last 1 year duration. He has bowel movements between 8 10 a day, which are loose to watery in consistency. No blood or mucus in the stool. PROCEDURE PERFORMED: Colonoscopy with biopsy and snare polypectomy. PREOPERATIVE DIAGNOSIS: Chronic diarrhea of 1 year duration. IV sedation per Anesthesia. PROCEDURE: After informed consent was obtained, the patient, was brought into the endoscopy unit. IV sedation was administered by Anesthesia under continuous monitoring. Digital rectal examination was normal. Initially the Olympus CF- 160 flexible video colonoscope was then inserted in the rectum, gradually advanced into the cecum without any difficulty. Careful examination was performed as the scope was gradually being withdrawn. Ileocecal valve and the appendiceal orifice were visualized and appeared normal. Prep was excellent. Mucosa of the cecum, ascending colon, transverse colon, descending colon, appeared normal. In the sigmoid colon at 40 cm from the anal verge there was a 2 cm submucosal polyp that was biopsied. In the distal rectum there was 1.5 cm broad-based polyp that was removed by snare polypectomy. Random biopsies were done from ascending and descending colon to rule out microscopic/collagenous colitis. Retroflexion was performed in the rectum and no lesions were seen. The patient tolerated the procedure well. IMPRESSION: 1.5 cm broad-based distal rectal polyp status post polypectomy 2 cm submucosal polyp possibly a lipoma in the sigmoid colon status post biopsy RECOMMENDATIONS: Findings of this examination were discussed with the patient as well as his family. He was advised to follow with the biopsy results. He will continue with Robb and will be seen in the office in 4-6 weeks.
[2017-10-12 11:18] VITALS: RESP 16
[2017-10-12 11:33] VITALS: BP 133/84; PULSE 75
== END 2017-10-12 11:58 | disposition home or self-care (01) ==
LOC: ORWHC2ENDO 09:14
PROVIDERS: ATTEND Internal Medicine Gastroenterology
DX: K52.9 Noninfective gastroenteritis and colitis, unspecified (principal); D12.8 Benign neoplasm of rectum; K63.5 Polyp of colon; I10 Essential (primary) hypertension; F17.210 Nicotine dependence, cigarettes, uncomplicated; Z79.899 Other long term (current) drug therapy
CPT/HCPCS: 88305; 45380; 45385; J2704

== ENCOUNTER 2017-11-05 05:33 | Emergency (ER) | payer BC ==
[2017-11-05 05:44] VITALS: TEMP 97.7
[2017-11-05] MEDS ORDERED: KETOROLAC 30 MG/ML 1 ML VIAL IVP STA (06:08)
[2017-11-05] MEDS ORDERED: MORPHINE SULFATE 4 MG/ML SYRINGE IV STA (06:08)
[2017-11-05] MEDS ORDERED: SODIUM CHLORIDE 0.9% 1,000 ML IV STA ×2 (06:08)
[2017-11-05 06:18] LABS: Basophils # (A) 0.1 k/uL (0-0.2); Basophils % (A) 1 %; Eosinophils # (A) 0.4 k/uL (0-0.7); Eosinophils % (A) 5 %; HCT 49.7 % (39.0-53.0); HGB 17.5 gm/dL (13.0-17.5); Lymphocytes # (A) 2.5 k/uL (1.0-4.8); Lymphocytes % (A) 27 %; MCH 31.7 pg (25.0-35.0); MCHC 35.3 g/dL (31.0-37.0); MCV 89.7 fL (80.0-100.0); Mean Platelet Volume 8.4; Monocytes # (A) 0.7 k/uL (0-1.0); Monocytes % (A) 7 %; Neutrophils # (A) 5.4 k/uL (1.3-7.7); Neutrophils % (A) 59 %; Platelet Count 247 k/uL (150-450); RBC 5.53 m/uL (4.30-5.90); RDW 12.7 % (11.5-15.5); WBC 9.2 k/uL (3.8-10.6)
[2017-11-05 06:30] LABS: ALT 59 U/L (21-72); AST 29 U/L (17-59); Albumin 4.4 g/dL (3.5-5.0); Alkaline Phosphatase 75 U/L (38-126); Anion Gap 9 mmol/L; Blood Urea Nitrogen 15 mg/dL (9-20); Calcium 9.5 mg/dL (8.4-10.2); Carbon Dioxide 24 mmol/L (22-30); Chloride 105 mmol/L (98-107); Glucose 154 mg/dL (74-99); Sodium 138 mmol/L (137-145); Total Bilirubin 2.3 mg/dL (0.2-1.3)
--- NOTE | 2017-11-05 07:00 | CT ---
EXAM: CT Abdomen and Pelvis Without Intravenous Contrast CLINICAL HISTORY: Pain TECHNIQUE: Axial computed tomography images of the abdomen and pelvis without intravenous contrast. DLP is 1635.80 mGy-cm. This CT exam was performed using one or more of the following dose reduction techniques: automated exposure control, adjustment of the mA and/or kV according to patient size, and/or use of iterative reconstruction technique. COMPARISON: 03/15/17 FINDINGS: Lung bases: Unremarkable. No mass. No consolidation. ABDOMEN: Liver: Unremarkable. Gallbladder and bile ducts: Unremarkable. No calcified stones. No ductal dilation. Pancreas: Unremarkable. No ductal dilation. Spleen: Unremarkable. No splenomegaly. Adrenals: Unremarkable. No mass. Kidneys and ureters: There is a 6 mm stone impacted in the distal left ureter causing mild left hydronephrosis. Stomach and bowel: Unremarkable. No obstruction. No mucosal thickening. PELVIS: Appendix: Normal appendix. Bladder: Unremarkable. No stones. Reproductive: Unremarkable as visualized. ABDOMEN and PELVIS: Intraperitoneal space: Unremarkable. No free air. No significant fluid collection. Bones/joints: No acute fracture. No dislocation. Soft tissues: Small fat-containing left inguinal hernia. Vasculature: Unremarkable. No abdominal aortic aneurysm. Lymph nodes: Unremarkable. No enlarged lymph nodes. IMPRESSION: 1. There is a 6 mm stone impacted in the distal left ureter causing mild left hydronephrosis. 2. Small fat-containing left inguinal hernia.
[2017-11-05 08:11] VITALS: BP 134/93; PULSE 112; RESP 17
--- NOTE | 2017-11-05 08:18 | ED ---
Back Pain HPI - General Chief Complaint: Back Pain/Injury Stated Complaint: back pain Time Seen by Provider: 11/05/17 05:46 Source: patient Limitations: no limitations - History of Present Illness Initial Comments: 37 years old male presents with a left flank pain, pain woke him up this morning he does have a history of kidney stones. Radiates from the left flank to the left groin area he denies any fever no chills no nausea no vomiting pain is about 7/10 and he has been able to void - Related Data Previous Rx's Medication Instructions Recorded HYDROcodone/APAP 5-325MG [Gregory 5] 1 each PO Q6HR PRN #10 tab 11/05/17 Tamsulosin [Flomax] 0.4 mg PO DAILY #10 cap 11/05/17 Allergies Allergy/AdvReac Type Severity Reaction Status Date / Time No Known Allergies Allergy Verified 11/05/17 05:44 Review of Systems ROS Statement: Those systems with pertinent positive or pertinent negative responses have been documented in the HPI. ROS Other: All systems not noted in ROS Statement are negative. Past Medical History Past Medical History: GERD/Reflux, Hypertension, Sleep Apnea/CPAP/BIPAP Additional Past Medical History / Comment(s): IBS, no cpap used, hiatal hernia, History of Any Multi-Drug Resistant Organisms: None Reported Past Surgical History: Cholecystectomy, Hernia Repair, Orthopedic Surgery Additional Past Surgical History / Comment(s): arthroscopy rt knee surgery x6, arthroscopy left knee surgery x 1, umbilical hernia repair x 3, incisional hernia surgery, surgery as infant for pyloric stenosis Past Anesthesia/Blood Transfusion Reactions: No Reported Reaction Past Psychological History: No Psychological Hx Reported Smoking Status: Current every day smoker Past Alcohol Use History: None Reported Past Drug Use History: None Reported - Past Family History Mother Family Medical History: No Reported History General Exam - General Exam Comments Initial Comments: General: The patient is awake and alert, in moderate distress Skin: Skin is warm and dry and no rashes or lesions are noted. Eye: Pupils are equal, round and reactive to light, extra-ocular movements are intact; there is normal conjunctiva bilaterally. Ears, nose, mouth and throat: There are moist mucous membranes and no oral lesions. Neck: The neck is supple, there is no tenderness or JVD. Cardiovascular: There is a regular rate and rhythm. No murmur, rub or gallop is appreciated. Respiratory: To auscultation bilateral, no wheezing no rhonchi no distress respiratory santo noticed Gastrointestinal: Tender over the left arm flank area. Back: There is no tenderness to palpation in the midline. There is no obvious deformity. Musculoskeletal: Normal ROM, no tenderness, There is no pedal edema. There is no calf tenderness or swelling. No cords were appreciated. Neurological: CN II-XII intact, Cranial nerves III through XII are intact. There are no obvious motor or sensory deficits. Coordination appears grossly intact. Speech is normal. Psychiatric: Cooperative, appropriate mood & affect, normal judgment. Limitations: no limitations Course Vital Signs 11/05/17 05:40 Temperature 97.7 F Pulse Rate 85 Respiratory 20 Rate Blood Pressure 162/92 O2 Sat by Pulse [address] of abdomen showed 6 mm stone impacted in the left distal ureter causing hydronephrosis, CBC is normal, comp his metabolic panel is fine I recommended patient stay in house if pain is too bad and considering the hydronephrosis patient chose to go home he be gone on home on Gregory 5 by mouth every 8 hours #10 and is surprised to use Motrin 600 mg every 8 when necessary Medical Decision Making - Lab Data Result diagrams: 11/05/17 05:50 11/05/17 05:50 Lab Results 11/05/17 11/05/17 Range/Units 05:50 05:50 WBC 9.2 (3.8-10.6) k/uL RBC 5.53 (4.30-5.90) m/uL Hgb 17.5 (13.0-17.5) gm/dL Hct 49.7 (39.0-53.0) % MCV 89.7 (80.0-100.0) fL MCH 31.7 (25.0-35.0) pg MCHC 35.3 (31.0-37.0) g/dL RDW 12.7 (11.5-15.5) % Plt Count 247 (150-450) k/uL Neutrophils % 59 % Lymphocytes % 27 % Monocytes % 7 % Eosinophils % 5 % Basophils % 1 % Neutrophils # 5.4 (1.3-7.7) k/uL Lymphocytes # 2.5 (1.0-4.8) k/uL Monocytes # 0.7 (0-1.0) k/uL Eosinophils # 0.4 (0-0.7) k/uL Basophils # 0.1 (0-0.2) k/uL Sodium 138 (137-145) mmol/L Potassium 4.0 (3.5-5.1) mmol/L Chloride 105 (98-107) mmol/L Carbon Dioxide 24 (22-30) mmol/L Anion Gap 9 mmol/L BUN 15 (9-20) mg/dL Creatinine 0.90 (0.66-1.25) mg/dL Est GFR (CKD-EPI)AfAm >90 (>60 ml/min/1.73 sqM) Est GFR (CKD-EPI)NonAf >90 (>60 ml/min/1.73 sqM) Glucose 154 H (74-99) mg/dL Calcium 9.5 (8.4-10.2) mg/dL Total Bilirubin 2.3 H (0.2-1.3) mg/dL AST 29 (17-59) U/L ALT 59 (21-72) U/L Alkaline Phosphatase 75 (38-126) U/L Total Protein 7.0 (6.3-8.2) g/dL Albumin 4.4 (3.5-5.0) g/dL Disposition Clinical Impression: Ureteric calculus, Hydronephrosis Disposition: HOME SELF-CARE Condition: Good Instructions: Kidney Stones (ED) Prescriptions: HYDROcodone/APAP 5-325MG [Gregory 5] 1 each PO Q6HR PRN #10 tab PRN Reason: Pain Tamsulosin [Flomax] 0.4 mg PO DAILY #10 cap Is patient prescribed a controlled substance at d/c from ED?: Yes Referrals: Luis Eduardo Pa MD [Primary Care Provider] - 1-2 days
[2017-11-05 08:23] LABS: Appearance,Urine Cloudy (Clear); Bacteria,Urine Rare /hpf; Bilirubin,Urine Negative (Negative); Blood,Urine Large (Negative); Calcium Oxalate Crystals,Urine Occasional /hpf; Color,Urine Yellow; Glucose,Urine (UA) Negative (Negative); Ketones,Urine Negative (Negative); Leukocyte Esterase,Urine Negative (Negative); Mucus,Urine Occasional /hpf; Nitrite,Urine Negative (Negative); Protein,Urine 1+ (Negative); RBC,Urine >182 /hpf (0-5); Squamous Epithelial Cell,Urine 1 /hpf (0-4); Urobilinogen,Urine <2.0 mg/dL (<2.0); WBC,Urine 3 /hpf (0-5)
[2017-11-05] MEDS ORDERED: MORPHINE SULFATE 4 MG/ML SYRINGE IM STA (08:32)
== END 2017-11-05 08:50 | disposition home or self-care (01) ==
LOC: EC 05:33
DX: N13.2 Hydronephrosis with renal and ureteral calculous obstruction (principal); F17.200 Nicotine dependence, unspecified, uncomplicated; G47.30 Sleep apnea, unspecified; Z99.89 Dependence on other enabling machines and devices; Z90.49 Acquired absence of other specified parts of digestive tract; Z98.890 Other specified postprocedural states; Z87.19 Personal history of other diseases of the digestive system
CPT/HCPCS: 36415; 80053; 85025; 81001; 74176; 99284; 96374; 96375; 96361 ×2; 96372; J2270; J1885

== ENCOUNTER 2017-11-05 16:33 | Inpatient (IN) | payer BC ==
[2017-11-05] MEDS ORDERED: ONDANSETRON 4 MG/2 ML VIAL IVP STA (16:55)
[2017-11-05] MEDS ORDERED: MORPHINE SULFATE 4 MG/ML SYRINGE IV STA (16:55)
[2017-11-05] MEDS ORDERED: SODIUM CHLORIDE 0.9% 500 ML IV STA (16:55)
[2017-11-05] MEDS ORDERED: SODIUM CHLORIDE 0.9% 1,000 ML IV STA (16:55)
[2017-11-05] MEDS ORDERED: KETOROLAC 30 MG/ML 1 ML VIAL IVP STA (16:56)
--- NOTE | 2017-11-05 17:05 | ED ---
General Adult HPI - General Chief complaint: Abdominal Pain Stated complaint: Kidney stone Time Seen by Provider: 11/05/17 16:44 Source: patient, RN notes reviewed, old records reviewed Mode of arrival: ambulatory Limitations: no limitations - History of Present Illness Initial comments: This is a 37-year-old male the ER for evaluation. This patient resents today for evaluation regards to severe abdominal pain. Diagnosed kidney stone earlier in the day. Patient tried outpatient treatment severely failed. Patient has had severe nausea vomiting inability to keep anything down, inability take him pain medication severe abdominal pain. - Related Data Previous Rx's Medication Instructions Recorded HYDROcodone/APAP 5-325MG [Badger 5] 1 each PO Q6HR PRN #10 tab 11/05/17 Tamsulosin [Flomax] 0.4 mg PO DAILY #10 cap 11/05/17 Allergies Allergy/AdvReac Type Severity Reaction Status Date / Time No Known Allergies Allergy Verified 11/05/17 16:46 Review of Systems ROS Statement: Those systems with pertinent positive or pertinent negative responses have been documented in the HPI. ROS Other: All systems not noted in ROS Statement are negative. Past Medical History Past Medical History: GERD/Reflux, Hypertension, Sleep Apnea/CPAP/BIPAP Additional Past Medical History / Comment(s): IBS, no cpap used, hiatal hernia , kidney stones History of Any Multi-Drug Resistant Organisms: None Reported Past Surgical History: Cholecystectomy, Hernia Repair, Orthopedic Surgery Additional Past Surgical History / Comment(s): arthroscopy rt knee surgery x6, arthroscopy left knee surgery x 1, umbilical hernia repair x 3, incisional hernia surgery, surgery as for pyloric stenosis Past Anesthesia/Blood Transfusion Reactions: No Reported Reaction Past Psychological History: No Psychological Hx Reported Smoking Status: Current every day smoker Past Alcohol Use History: Occasional Past Drug Use History: None Reported - Past Family History Mother Family Medical History: No Reported History General Exam Limitations: no limitations General appearance: alert, in no apparent distress Head exam: Present: atraumatic, normocephalic, normal inspection Eye exam: Present: normal appearance, PERRL, EOMI. Absent: scleral icterus, conjunctival injection, periorbital swelling ENT exam: Present: normal exam, mucous membranes moist Neck exam: Present: normal inspection. Absent: tenderness, meningismus, lymphadenopathy Respiratory exam: Present: normal lung sounds bilaterally. Absent: respiratory distress, wheezes, rales, rhonchi, stridor Cardiovascular Exam: Present: regular rate, normal rhythm, normal heart sounds. Absent: systolic murmur, diastolic murmur, rubs, gallop, clicks GI/Abdominal exam: Present: soft, normal bowel sounds. Absent: distended, tenderness, guarding, rebound, rigid Extremities exam: Present: normal inspection, full ROM, normal capillary refill. Absent: tenderness, pedal edema, joint swelling, calf tenderness Back exam: Present: normal inspection Neurological exam: Present: alert, oriented X3, CN II-XII intact Psychiatric exam: Present: normal affect, normal mood Skin exam: Present: warm, dry, intact, normal color. Absent: rash Course Vital Signs 11/05/17 11/05/17 16:43 18:33 Temperature 98.2 F Pulse Rate 86 81 Respiratory 18 16 Rate Blood Pressure 154/97 148/71 O2 Sat by Pulse 98 96 Oximetry - Reevaluation(s) Reevaluation #1: 11/05/17 17:05 ER visit from earlier today is reviewed, +6 mm kidney stone Medical Decision Making - Medical Decision Making 37 male the ER for evaluation this male presents today for evaluation regards to abdominal pain secondary to kidney stone. Patient is to be admitted for pain control - Lab Data Result diagrams: 11/05/17 17:13 11/05/17 17:13 Lab Results 11/05/17 11/05/17 11/05/17 Range/Units 17:13 17:13 18:24 WBC 8.1 (3.8-10.6) k/uL RBC 5.34 (4.30-5.90) m/uL Hgb 16.7 (13.0-17.5) gm/dL Hct 47.9 (39.0-53.0) % MCV 89.6 (80.0-100.0) fL MCH 31.3 (25.0-35.0) pg MCHC 34.9 (31.0-37.0) g/dL RDW 12.7 (11.5-15.5) % Plt Count 240 (150-450) k/uL Neutrophils % 64 % Lymphocytes % 24 % Monocytes % 6 % Eosinophils % 4 % Basophils % 1 % Neutrophils # 5.2 (1.3-7.7) k/uL Lymphocytes # 1.9 (1.0-4.8) k/uL Monocytes # 0.5 (0-1.0) k/uL Eosinophils # 0.4 (0-0.7) k/uL Basophils # 0.1 (0-0.2) k/uL Sodium 139 (137-145) mmol/L Potassium 4.1 (3.5-5.1) mmol/L Chloride 106 (98-107) mmol/L Carbon Dioxide 26 (22-30) mmol/L Anion Gap 7 mmol/L BUN 13 (9-20) mg/dL Creatinine 0.94 (0.66-1.25) mg/dL Est GFR (CKD-EPI)AfAm >90 (>60 ml/min/1.73 sqM) Est GFR (CKD-EPI)NonAf >90 (>60 ml/min/1.73 sqM) Glucose 154 H (74-99) mg/dL Calcium 9.2 (8.4-10.2) mg/dL Phosphorus 3.7 (2.5-4.5) mg/dL Magnesium 1.9 (1.6-2.3) mg/dL Total Bilirubin 1.6 H (0.2-1.3) mg/dL AST 29 (17-59) U/L ALT 57 (21-72) U/L Alkaline Phosphatase 70 (38-126) U/L Total Protein 6.7 (6.3-8.2) g/dL Albumin 4.2 (3.5-5.0) g/dL Urine Color Light Red Urine Appearance Cloudy (Clear) Urine pH 5.5 (5.0-8.0) Ur Specific [place] 1.021 (1.001-1.035) Urine Protein 1+ H (Negative) Urine Glucose (UA) Negative (Negative) Urine Ketones Negative (Negative) Urine Blood Large H (Negative) Urine Nitrite Negative (Negative) Urine Bilirubin Negative (Negative) Urine Urobilinogen <2.0 (<2.0) mg/dL Ur Leukocyte Esterase Trace H (Negative) Urine RBC >182 H (0-5) /hpf Ur Squamous Epith Cells 1 (0-4) /hpf Calcium Oxalate Crystal Many H (None) /hpf Urine Mucus Few H (None) /hpf - Radiology Data Radiology results: report reviewed (CT head and pelvis +6 melena calculus) Disposition Clinical Impression: Ureteric calculus, Hydronephrosis, Failure of outpatient treatment Narrative: pain control Disposition: ADMITTED IP TO THIS HOSP Condition: Fair Is patient prescribed a controlled substance at d/c from ED?: No Referrals: Luis Eduardo Pa MD [Primary Care Provider] - 1-2 days
[2017-11-05 17:36] LABS: ALT 57 U/L (21-72); AST 29 U/L (17-59); Albumin 4.2 g/dL (3.5-5.0); Alkaline Phosphatase 70 U/L (38-126); Anion Gap 7 mmol/L; Blood Urea Nitrogen 13 mg/dL (9-20); Calcium 9.2 mg/dL (8.4-10.2); Carbon Dioxide 26 mmol/L (22-30); Chloride 106 mmol/L (98-107); Glucose 154 mg/dL (74-99); Magnesium 1.9 mg/dL (1.6-2.3); Phosphorus 3.7 mg/dL (2.5-4.5); Potassium 4.1 mmol/L (3.5-5.1); Sodium 139 mmol/L (137-145); Total Bilirubin 1.6 mg/dL (0.2-1.3); Total Protein 6.7 g/dL (6.3-8.2)
[2017-11-05 17:38] LABS: Basophils # (A) 0.1 k/uL (0-0.2); Basophils % (A) 1 %; Eosinophils # (A) 0.4 k/uL (0-0.7); Eosinophils % (A) 4 %; HCT 47.9 % (39.0-53.0); HGB 16.7 gm/dL (13.0-17.5); Lymphocytes # (A) 1.9 k/uL (1.0-4.8); Lymphocytes % (A) 24 %; MCH 31.3 pg (25.0-35.0); MCHC 34.9 g/dL (31.0-37.0); MCV 89.6 fL (80.0-100.0); Mean Platelet Volume 8.3; Monocytes # (A) 0.5 k/uL (0-1.0); Monocytes % (A) 6 %; Neutrophils # (A) 5.2 k/uL (1.3-7.7); Neutrophils % (A) 64 %; Platelet Count 240 k/uL (150-450); RBC 5.34 m/uL (4.30-5.90); RDW 12.7 % (11.5-15.5); WBC 8.1 k/uL (3.8-10.6)
[2017-11-05] MEDS ORDERED: MORPHINE SULFATE 4 MG/ML SYRINGE IVP STA (18:27)
[2017-11-05 18:37] LABS: Appearance,Urine Cloudy (Clear); Bilirubin,Urine Negative (Negative); Blood,Urine Large (Negative); Calcium Oxalate Crystals,Urine Many /hpf; Color,Urine Light Red; Glucose,Urine (UA) Negative (Negative); Ketones,Urine Negative (Negative); Leukocyte Esterase,Urine Trace (Negative); Mucus,Urine Few /hpf; Nitrite,Urine Negative (Negative); PH, Urine 5.5 (5.0-8.0); Protein,Urine 1+ (Negative); RBC,Urine >182 /hpf (0-5); Specific Gravity,Urine 1.021 (1.001-1.035); Squamous Epithelial Cell,Urine 1 /hpf (0-4); Urobilinogen,Urine <2.0 mg/dL (<2.0)
[2017-11-05] MEDS ORDERED: SODIUM CHLORIDE 0.9% 1,000 ML IV ONE (18:40)
[2017-11-05] MEDS ORDERED: MORPHINE SULFATE 4 MG/ML SYRINGE IVP PRN (18:41)
[2017-11-05] MEDS ORDERED: ONDANSETRON 4 MG/2 ML VIAL IVP PRN (18:41)
--- NOTE | 2017-11-05 21:03 | P.GSHP ---
History of Present Illness H&P Date: 11/05/17 Chief Complaint: Left flank pain secondary to left ureteral calculus The patient is a 37-year-old male who was woken from sleep early this morning with severe left flank pain which was associated with nausea. The patient came to the emergency room for evaluation and a computed tomography scan of the abdomen and pelvis identified what was described as a 6 mm calculus in the distal left ureter. The patient's pain improved while he was in the emergency room and he elected to go home on tamsulosin, ibuprofen and Argyle 5/325. He says that his pain recurred this afternoon and was associated with fecal urgency. He returned to the emergency room where his pain was treated with IV narcotics. Due to the persistence of his pain and nausea was elected to admit him for further observation. The patient has a history of urolithiasis and spontaneously passed a stone approximately 14 years ago. He says he's had intermittent left flank and left testicular pain for for 5 months. Scrotal ultrasound was obtained due to the testicular discomfort and no abnormality was noted. The patient said that he did note dark colored urine 2 days ago and again today. There are no other family members with kidney stones. The patient says he may have had a urinary tract infection when he was a child. - Constitutional Constitutional: Denies chills, Denies fever - Cardiovascular Cardiovascular: Reports high blood pressure, Denies chest pain, Denies palpitations, Denies shortness of breath - Respiratory Respiratory: Reports sleep apnea (Uses BiPAP), Denies cough - Gastrointestinal Gastrointestinal: Reports indigestion, Denies constipation, Denies vomiting - Genitourinary (Female) Genitourinary: Reports as per HPI Past Medical History Past Medical History: GERD/Reflux, Hypertension, Sleep Apnea/CPAP/BIPAP Additional Past Medical History / Comment(s): IBS, no cpap used, hiatal hernia , kidney stones History of Any Multi-Drug Resistant Organisms: None Reported Past Surgical History: Cholecystectomy, Hernia Repair, Orthopedic Surgery Additional Past Surgical History / Comment(s): arthroscopy rt knee surgery x6, arthroscopy left knee surgery x 1, umbilical hernia repair x 3, incisional hernia surgery, surgery as for pyloric stenosis, colonoscopy with multiple biopsies which showed a tubular adenoma in the rectum-09/2017 Past Anesthesia/Blood Transfusion Reactions: No Reported Reaction Past Psychological History: No Psychological Hx Reported Smoking Status: Current every day smoker (2-3 packs per week) Past Alcohol Use History: Occasional Past Drug Use History: None Reported Additional History: The patient's was recently diagnosed with stage IV pancreatic cancer - Past Family History Mother Family Medical History: No Reported History Additional Family Medical History / Comment(s): A maternal uncle and grandfather has Lockwood's disease Medications and Allergies Home Medications Medication Instructions Recorded Confirmed Type HYDROcodone/APAP 5-325MG [Argyle 5] 1 each PO Q6HR PRN #10 tab 11/05/17 Rx Tamsulosin [Flomax] 0.4 mg PO DAILY #10 cap 11/05/17 Rx Allergies Allergy/AdvReac Type Severity Reaction Status Date / Time No Known Allergies Allergy Verified 11/05/17 16:46 Surgical - Exam Vital Signs Temp Pulse Resp BP Pulse Ox 98.2 F 86 18 154/97 98 11/05/17 16:43 11/05/17 16:43 11/05/17 16:43 11/05/17 16:43 11/05/17 16:43 - General moderate distress, obese - ENT no hearing loss - Respiratory normal respiratory effort - Abdomen Abdomen: soft, non tender, no organomegaly - Genitourinary normal penis with no external lesions, testicles non-tender Results - Labs 11/05/17 17:13 11/05/17 17:13 Abnormal Lab Results - Last 24 Hours (Table) 11/05/17 11/05/17 Range/Units 17:13 18:24 Glucose 154 H (74-99) mg/dL Total Bilirubin 1.6 H (0.2-1.3) mg/dL Urine Protein 1+ H (Negative) Urine Blood Large H (Negative) Ur Leukocyte Esterase Trace H (Negative) Urine RBC >182 H (0-5) /hpf Calcium Oxalate Crystal Many H (None) /hpf Urine Mucus Few H (None) /hpf Diabetes panel 11/05/17 Range/Units 17:13 Sodium 139 (137-145) mmol/L Potassium 4.1 (3.5-5.1) mmol/L Chloride 106 (98-107) mmol/L Carbon Dioxide 26 (22-30) mmol/L BUN 13 (9-20) mg/dL Creatinine 0.94 (0.66-1.25) mg/dL Glucose 154 H (74-99) mg/dL Calcium 9.2 (8.4-10.2) mg/dL AST 29 (17-59) U/L ALT 57 (21-72) U/L Alkaline Phosphatase 70 (38-126) U/L Total Protein 6.7 (6.3-8.2) g/dL Albumin 4.2 (3.5-5.0) g/dL Calcium panel 11/05/17 Range/Units 17:13 Calcium 9.2 (8.4-10.2) mg/dL Phosphorus 3.7 (2.5-4.5) mg/dL Albumin 4.2 (3.5-5.0) g/dL Pituitary panel 11/05/17 Range/Units 17:13 Sodium 139 (137-145) mmol/L Potassium 4.1 (3.5-5.1) mmol/L Chloride 106 (98-107) mmol/L Carbon Dioxide 26 (22-30) mmol/L BUN 13 (9-20) mg/dL Creatinine 0.94 (0.66-1.25) mg/dL Glucose 154 H (74-99) mg/dL Calcium 9.2 (8.4-10.2) mg/dL Adrenal panel 11/05/17 Range/Units 17:13 Sodium 139 (137-145) mmol/L Potassium 4.1 (3.5-5.1) mmol/L Chloride 106 (98-107) mmol/L Carbon Dioxide 26 (22-30) mmol/L BUN 13 (9-20) mg/dL Creatinine 0.94 (0.66-1.25) mg/dL Glucose 154 H (74-99) mg/dL Calcium 9.2 (8.4-10.2) mg/dL Total Bilirubin 1.6 H (0.2-1.3) mg/dL AST 29 (17-59) U/L ALT 57 (21-72) U/L Alkaline Phosphatase 70 (38-126) U/L Total Protein 6.7 (6.3-8.2) g/dL Albumin 4.2 (3.5-5.0) g/dL Assessment and Plan (1) Ureteric calculus Narrative/Plan: The patient has left flank pain secondary to a 4 x 5 x 8 mm calculus which has migrated into the distal left ureter near the level of the superior acetabulum. His pain has decreased since he was admitted from the emergency room. I discussed options of treatment including further observation with hopes of spontaneous passage of the calculus, ureteroscopy with lithotripsy or temporary placement of a double-J catheter with eventual extracorporeal shockwave lithotripsy. The patient will be observed overnight and says that he will make a decision in the morning as to whether or not he wishes to proceed with ureteroscopy with lithotripsy. He is aware that a double-J catheter may be left following the procedure depending on the amount of edema adjacent to the calculus. Current Visit: Yes Status: Acute Code(s): N20.1 - CALCULUS OF URETER SNOMED Code(s): 68489297
[2017-11-05 22:12] VITALS: BMI 45.6
[2017-11-05] MEDS: KETOROLAC 30 MG/ML 1 ML VIAL IVP SCH (23:48)
[2017-11-06] MEDS: KETOROLAC 30 MG/ML 1 ML VIAL IVP SCH (06:21)
[2017-11-06] MEDS ORDERED: PROPOFOL 10 MG/ML 20 ML VIAL IV ONE (09:36)
[2017-11-06] MEDS ORDERED: MIDAZOLAM 2 MG/2 ML VIAL ONE (09:36)
[2017-11-06] MEDS ORDERED: IV FLUID CONTINUATION 900 ML IV ONE ×2 (09:36)
[2017-11-06] MEDS ORDERED: SUCCINYLCHOLINE CHLORIDE 100 MG/5 ML SYR IV ONE (09:36)
[2017-11-06] MEDS ORDERED: fentaNYL (PF) 50 MCG/ML 2 ML AMP ONE (09:36)
[2017-11-06] MEDS ORDERED: LIDOCAINE 1% INJ 10MG/ML (20 ML MDV) ONE (09:36)
[2017-11-06] MEDS ORDERED: SODIUM CHLORIDE 0.9% 50 ML with ceFAZolin 1,000 MG IV ONE ×2 (09:46)
[2017-11-06] MEDS ORDERED: LACTATED RINGERS 1,000 ML IV ONE ×2 (11:00)
--- NOTE | 2017-11-06 11:20 | P.OP ---
Date of Procedure: 11/06/17 Preoperative Diagnosis: Left ureteral calculus Postoperative Diagnosis: Left ureteral calculus Procedure(s) Performed: Cystoscopy with left ureteroscopy, lithotripsy and placement of left double-J catheter Anesthesia: MARGY Surgeon: Lico Benavides Estimated Blood Loss (ml): 0 Pathology: none sent (left ureteral calculus fragments) Condition: stable Disposition: PACU Indications for Procedure: The patient is a 37-year-old male admitted yesterday with severe left flank pain secondary to a 6 mm distal left ureteral calculus. The patient's pain has persisted. Treatment options including further observation, ESWL or ureteroscopy with lithotripsy have been reviewed and the patient would prefer the latter. Description of Procedure: The patient was taken to the operative suite where adequate general anesthesia via LMA was instituted. The patient was placed in the dorsal lithotomy position with his legs suspended from padded Miguel stirrups. Sequential pneumatic stockings were applied to the lower legs. The genitalia were was prepped with Betadine solution and draped in a sterile fashion. The penile and prostatic urethra traversed under direct vision using the 17-Guatemalan sheath and 30 lens. The anterior urethra was unremarkable. The prostatic urethra showed evidence of minimal enlargement consistent with the patient's age. The bladder was examined. Both ureteral orifices were of normal location and configuration. The bladder was free of tumor, foreign body and calculus. A 0.035 straight Glidewire was advanced through the left ureteral orifice and beyond the calculus which was located near the sacrococcygeal junction. The cystoscope was withdrawn leaving the Glidewire in place. The distal ureter was then dilated to 13-Guatemalan using a 13-Guatemalan ureteral reentry sheath and 11-Guatemalan obturator. The reentry sheath was removed. The semirigid ureteroscope was passed through the urethra and into the bladder. The left ureter was entered. The distal ureter was well dilated. Unfortunately the calculus was too proximal to allow safe visualization using the semirigid instrument. The ureteroscope was withdrawn. The 13-Guatemalan ureteral reentry sheath with obturator was then advanced over the Glidewire and up to the region of the calculus. The Glidewire was withdrawn and ureteroscopy was performed using the flexible ureteroscope. Unfortunately visualization of the calculus was suboptimal as it appeared that there had been a false passage created laterally , possibly with attempted passage of the semirigid scope. I was eventually able to pass a 0.035 angled Glidewire beyond the calculus and into the proximal ureter. The reentry sheath and obturator were advanced over the Glidewire and into the proximal ureter. The obturator was withdrawn. A second 0.035 Glidewire was advanced through the reentry sheath and the reentry sheath was withdrawn. The reentry sheath with obturator was then advanced over the Glidewire next to the second Glidewire which served as a safety wire. The reentry sheath and flexible ureteroscope were withdrawn down to the region of the calculus which was then identified. The calculus was broken down into multiple small fragments using the 365 fiber and the holmium laser at a setting of 400 mJ and 20 cps. The largest calculus fragments were then removed from the ureter using a 1.9-Guatemalan nitinol stone basket. It appeared that there might be some sand present in the area of the false passage but it was impossible to advance the stone basket into this region to remove them. The reentry sheath and ureteroscope were withdrawn leaving the safety Glidewire in place. The 22-Guatemalan cystoscope sheath was backloaded over the Glidewire and then the cystoscope was reintroduced into the bladder. A 24 cm x 6-Guatemalan double-J catheter was then advanced over the Glidewire and positioned fluoroscopically so that the proximal end coiled in the region of the renal pelvis and the distal end coiled in the bladder. Patient tolerated procedure well and left the operative room awake and in satisfactory condition patient's seen back in approximately 2 weeks. A KUB will be obtained before removal of the double-J catheter.
--- NOTE | 2017-11-06 11:33 | FL ---
FLUOROSCOPY 2 minutes and 3 seconds of fluoroscopy time were utilized during left-sided ureteral stone manipulati on. 1 images document the procedure.
[2017-11-06 14:15] VITALS: RESP 18; TEMP 98.3
[2017-11-06 14:17] VITALS: BP 146/90; PULSE 90
== END 2017-11-06 14:30 | disposition home or self-care (01) | DRG 670 ==
LOC: EC 16:33 → 3OBS 18:40 → OBSVTOIN 11-06 07:48
PROVIDERS: ADMIT Urology; ATTEND Urology
PROC: 0TC78ZZ Extirpation of Matter from Left Ureter, Via Natural or Artificial Opening Endoscopic (ICD-10-PCS; principal; 2017-11-06 09:30)
PROC: 0T778DZ Dilation of Left Ureter with Intraluminal Device, Via Natural or Artificial Opening Endoscopic (ICD-10-PCS; principal; 2017-11-06 09:30)
DX: N20.1 Calculus of ureter (principal); F17.200 Nicotine dependence, unspecified, uncomplicated; G47.30 Sleep apnea, unspecified; I10 Essential (primary) hypertension; K21.9 Gastro-esophageal reflux disease without esophagitis; K58.9 Irritable bowel syndrome, unspecified; Z87.442 Personal history of urinary calculi; Z90.49 Acquired absence of other specified parts of digestive tract; Z79.891 Long term (current) use of opiate analgesic; Z79.899 Other long term (current) drug therapy; Z84.89 Family history of other specified conditions
CPT/HCPCS: 36415; 80053; 81001; 82365; 83735; 84100; 85025; 87086; 96361; 96374; 96375; 99285

== ENCOUNTER → 2017-11-22 | Outpatient (CLI) | payer BC ==
--- NOTE | 2017-11-22 11:38 | CT ---
EXAMINATION TYPE: CT abdomen pelvis wo con DATE OF EXAM: 11/22/2017 COMPARISON: 11/05/2017 HISTORY: 37-year-old male Calculus of kidney. Follow up to left-sided lithotripsy and double-J stent. CT DLP: 1146 mGycm. Automated exposure control for dose reduction was used. TECHNIQUE: Contiguous axial scanning of the abdomen and pelvis without IV contrast. Coronal and sagit leydi reconstructions performed. FINDINGS: Heart is normal size without pericardial effusion. Lung bases clear without pleural effusion. Liver normal size at 15.7 cm. The low attenuation is suspected to be artifactual given low density of the spleen as well and normal density on the 11/05/2017 study. Cholecystectomy clips. Adrenal glands, right kidney, spleen, and pancreas appear within normal limits . Borderline but nonenlarged portacaval lymph node at 1.4 cm. A couple borderline sized retroperitoneal lymph nodes measure up to 6 mm in the preaortic region, axial image 60. Otherwise, scattered small m esenteric lymph nodes are present. No dilated small bowel, free fluid, or free air. Patient's left ureteral stent appears appropriately positioned. Mild hydroureter along the distal thi rd segment with new periureteric fat stranding. No residual calculus is seen. No hydronephrosis. Punc christianson mm nonobstructive lower pole left renal calculus. Bladder not distended. Prostatic calcifications. Patulous left inguinal canal. A prominent left exter nal iliac chain lymph node measures 7 mm adjacent to the mildly dilated segment of distal third left ureter and adjacent fat stranding, likely reactive. No abnormal fluid collection in the pelvis. Bones: No osseous destructive process. IMPRESSION: Interval placement of a left ureteral stent and clearance of the previous left ureteral calculus. A s hort segment along the lower left ureter at the site of prior calculus is dilated and there is surrou nding fat stranding/edema. Probably reactive to the surgical intervention. Nonobstructive 3 mm left renal calculus.
== END | disposition home or self-care (01) ==
LOC: RADCTMAIN 10:49
PROVIDERS: ATTEND Urology
DX: N20.0 Calculus of kidney (principal); Z87.442 Personal history of urinary calculi
CPT/HCPCS: 74176

== ENCOUNTER → 2017-12-22 | Outpatient (CLI) | payer BC ==
--- NOTE | 2017-12-22 09:43 | US ---
EXAMINATION TYPE: US kidneys/renal and bladder DATE OF EXAM: 12/22/2017 COMPARISON: NONE CLINICAL HISTORY: R93.4 HX HYDRONEPHROSIS. Patient has hx of left ureteral stent. Left kidney stones. EXAM MEASUREMENTS: Right Kidney: 11.2 x 6.4 x 6.2 cm Left Kidney: 13.0 x 6.3 x 6.1 cm Patient morbidly obese, technically difficult study. Right Kidney: No hydronephrosis or masses seen Left Kidney: No hydronephrosis or masses seen, measures large Bladder: wnl. Sonolucent. Posterior wall is normal. IMPRESSION: 1. No hydronephrosis is evident.
== END | disposition home or self-care (01) ==
LOC: RADUSWWP 08:56
PROVIDERS: ATTEND Urology
DX: Z09 Encounter for follow-up examination after completed treatment for conditions other than malignant neoplasm (principal); Z87.448 Personal history of other diseases of urinary system
CPT/HCPCS: 76770

== ENCOUNTER 2018-06-11 11:30 | Emergency (ER) | payer MEDICAID ==
[2018-06-11] MEDS ORDERED: MORPHINE SULFATE 4 MG/ML SYRINGE IV STA (11:58)
[2018-06-11] MEDS ORDERED: KETOROLAC 30 MG/ML 1 ML VIAL IVP STA (11:58)
[2018-06-11] MEDS ORDERED: SODIUM CHLORIDE 0.9% 1,000 ML IV STA ×2 (11:58)
[2018-06-11 12:53] LABS: Basophils # (A) 0.1 k/uL (0-0.2); Basophils % (A) 1 %; Eosinophils # (A) 0.5 k/uL (0-0.7); Eosinophils % (A) 5 %; HCT 50.2 % (39.0-53.0); HGB 17.3 gm/dL (13.0-17.5); Lymphocytes # (A) 2.1 k/uL (1.0-4.8); Lymphocytes % (A) 23 %; MCH 32.5 pg (25.0-35.0); MCHC 34.4 g/dL (31.0-37.0); MCV 94.6 fL (80.0-100.0); Mean Platelet Volume 8.3; Monocytes # (A) 0.5 k/uL (0-1.0); Monocytes % (A) 5 %; Neutrophils # (A) 5.8 k/uL (1.3-7.7); Neutrophils % (A) 64 %; Platelet Count 236 k/uL (150-450); RBC 5.31 m/uL (4.30-5.90); RDW 13.2 % (11.5-15.5); WBC 9.1 k/uL (3.8-10.6)
[2018-06-11 12:57] LABS: Appearance,Urine Clear (Clear); Bilirubin,Urine Negative (Negative); Blood,Urine Negative (Negative); Color,Urine Yellow; Glucose,Urine (UA) Negative (Negative); Ketones,Urine Negative (Negative); Leukocyte Esterase,Urine Trace (Negative); Mucus,Urine Rare /hpf; Nitrite,Urine Negative (Negative); Protein,Urine Trace (Negative); RBC,Urine 2 /hpf (0-5); Squamous Epithelial Cell,Urine 1 /hpf (0-4); Urobilinogen,Urine <2.0 mg/dL (<2.0); WBC,Urine 2 /hpf (0-5)
[2018-06-11 13:03] LABS: ALT 63 U/L (21-72); AST 39 U/L (17-59); Albumin 4.3 g/dL (3.5-5.0); Alkaline Phosphatase 87 U/L (38-126); Amylase <30 U/L (30-110); Anion Gap 6 mmol/L; Blood Urea Nitrogen 16 mg/dL (9-20); Calcium 9.7 mg/dL (8.4-10.2); Carbon Dioxide 28 mmol/L (22-30); Chloride 106 mmol/L (98-107); Glucose 116 mg/dL (74-99); Lipase 54 U/L (23-300); Potassium 4.7 mmol/L (3.5-5.1); Sodium 140 mmol/L (137-145); Total Bilirubin 1.9 mg/dL (0.2-1.3); Total Protein 7.4 g/dL (6.3-8.2)
[2018-06-11] MEDS ORDERED: ACET/COD 300 MG/30 MG STARTER PACK 6 TAB BTL PO STA (13:29)
[2018-06-11] MEDS ORDERED: Acetaminophen-Codeine 300-30mg TAB PO STA (13:29)
--- NOTE | 2018-06-11 13:29 | ED ---
Abdominal Pain HPI - General Chief Complaint: Abdominal Pain Stated Complaint: Kidney stone Time Seen by Provider: 06/11/18 11:58 Source: patient, RN notes reviewed, old records reviewed Mode of arrival: ambulatory Limitations: no limitations - History of Present Illness Initial Comments: This is a 37-year-old male to the ER for evaluation. Patient presents today for evaluation regarding abdominal pain left-sided flank pain history of kidney stones feels just like prior kidney stones. Symptoms times a day and a half. Decreased urination denies any obvious mani blood in his urine. No fevers. No other complaints MD Complaint: abdominal pain, flank pain (Sided) -: days(s) (1) Location: LLQ, suprapubic Radiation: L flank Migration to: no migration Severity: moderate Severity scale (1-10): 5 Quality: aching Consistency: constant Improves With: nothing Worsens With: nothing Context: other (History of prior kidney stones requiring urethral stent) Associated Symptoms: nausea - Related Data Home Medications Medication Instructions Recorded Confirmed Bisoprolol-Hctz 10-6.25 mg [Ziac 1 tab PO DAILY 11/06/17 06/11/18 10-6.25] Diphenox-Atrop 2.5-0.025 mg 1 tab PO QID PRN 11/06/17 06/11/18 [Lomotil] Dicyclomine [Bentyl] 10 mg PO QID PRN 06/11/18 06/11/18 Ibuprofen [Motrin Ib] 600 - 800 mg PO Q6H PRN 06/11/18 06/11/18 PARoxetine HCL [Paxil] 40 mg PO DAILY 06/11/18 06/11/18 Allergies Allergy/AdvReac Type Severity Reaction Status Date / Time No Known Allergies Allergy Verified 06/11/18 13:01 Review of Systems ROS Statement: Those systems with pertinent positive or pertinent negative responses have been documented in the HPI. ROS Other: All systems not noted in ROS Statement are negative. Past Medical History Past Medical History: GERD/Reflux, Hypertension, Sleep Apnea/CPAP/BIPAP Additional Past Medical History / Comment(s): IBS, no cpap used, hiatal hernia , kidney stones History of Any Multi-Drug Resistant Organisms: None Reported Past Surgical History: Cholecystectomy, Hernia Repair, Orthopedic Surgery Additional Past Surgical History / Comment(s): arthroscopy rt knee surgery x6, arthroscopy left knee surgery x 1, umbilical hernia repair x 3, incisional hernia surgery, surgery as infant for pyloric stenosis, colonoscopy with multiple biopsies which showed a tubular adenoma in the rectum-09/2017 Past Anesthesia/Blood Transfusion Reactions: No Reported Reaction Past Psychological History: No Psychological Hx Reported Smoking Status: Current every day smoker Past Alcohol Use History: Occasional Past Drug Use History: None Reported - Past Family History Mother Family Medical History: No Reported History Additional Family Medical History / Comment(s): A maternal uncle and grandfather has Ashwin's disease General Exam Limitations: no limitations General appearance: alert, in no apparent distress Head exam: Present: atraumatic, normocephalic, normal inspection Eye exam: Present: normal appearance, PERRL, EOMI. Absent: scleral icterus, conjunctival injection, periorbital swelling ENT exam: Present: normal exam, mucous membranes moist Neck exam: Present: normal inspection. Absent: tenderness, meningismus, lymphadenopathy Respiratory exam: Present: normal lung sounds bilaterally. Absent: respiratory distress, wheezes, rales, rhonchi, stridor Cardiovascular Exam: Present: normal rhythm, tachycardia, normal heart sounds. Absent: systolic murmur, diastolic murmur, rubs, gallop, clicks GI/Abdominal exam: Present: soft, normal bowel sounds. Absent: distended, tenderness, guarding, rebound, rigid Extremities exam: Present: normal inspection, full ROM, normal capillary refill. Absent: tenderness, pedal edema, joint swelling, calf tenderness Back exam: Present: normal inspection Neurological exam: Present: alert, oriented X3, CN II-XII intact Psychiatric exam: Present: normal affect, normal mood Skin exam: Present: warm, dry, intact, normal color. Absent: rash Course Vital Signs 06/11/18 11:48 Temperature 98.5 F Pulse Rate 107 H Respiratory 20 Rate Blood Pressure 163/92 O2 Sat by Pulse 98 Oximetry - Reevaluation(s) Reevaluation #1: 06/11/18 13:28 Medical record is reviewed Reevaluation #2: 06/11/18 13:28 Patient with adequate pain control currently Medical Decision Making - Medical Decision Making 37 male the ER for evaluation patient resents today for evaluation regards to abdominal pain flank pain positive kidney stones history of kidney stones. Patient has achieve pain control currently. Patient given follow-up with urology - Lab Data Result diagrams: 06/11/18 12:41 06/11/18 12:41 Lab Results 06/11/18 06/11/18 06/11/18 Range/Units 12:41 12:41 12:41 WBC 9.1 (3.8-10.6) k/uL RBC 5.31 (4.30-5.90) m/uL Hgb 17.3 (13.0-17.5) gm/dL Hct 50.2 (39.0-53.0) % MCV 94.6 (80.0-100.0) fL MCH 32.5 (25.0-35.0) pg MCHC 34.4 (31.0-37.0) g/dL RDW 13.2 (11.5-15.5) % Plt Count 236 (150-450) k/uL Neutrophils % 64 % Lymphocytes % 23 % Monocytes % 5 % Eosinophils % 5 % Basophils % 1 % Neutrophils # 5.8 (1.3-7.7) k/uL Lymphocytes # 2.1 (1.0-4.8) k/uL Monocytes # 0.5 (0-1.0) k/uL Eosinophils # 0.5 (0-0.7) k/uL Basophils # 0.1 (0-0.2) k/uL Sodium 140 (137-145) mmol/L Potassium 4.7 (3.5-5.1) mmol/L Chloride 106 (98-107) mmol/L Carbon Dioxide 28 (22-30) mmol/L Anion Gap 6 mmol/L BUN 16 (9-20) mg/dL Creatinine 0.95 (0.66-1.25) mg/dL Est GFR (CKD-EPI)AfAm >90 (>60 ml/min/1.73 sqM) Est GFR (CKD-EPI)NonAf >90 (>60 ml/min/1.73 sqM) Glucose 116 H (74-99) mg/dL Calcium 9.7 (8.4-10.2) mg/dL Total Bilirubin 1.9 H (0.2-1.3) mg/dL AST 39 (17-59) U/L ALT 63 (21-72) U/L Alkaline Phosphatase 87 (38-126) U/L Total Protein 7.4 (6.3-8.2) g/dL Albumin 4.3 (3.5-5.0) g/dL Amylase <30 L (30-110) U/L Lipase 54 (23-300) U/L Urine Color Yellow Urine Appearance Clear (Clear) Urine pH 7.0 (5.0-8.0) Ur Specific [place] 1.020 (1.001-1.035) Urine Protein Trace H (Negative) Urine Glucose (UA) Negative (Negative) Urine Ketones Negative (Negative) Urine Blood Negative (Negative) Urine Nitrite Negative (Negative) Urine Bilirubin Negative (Negative) Urine Urobilinogen <2.0 (<2.0) mg/dL Ur Leukocyte Esterase Trace H (Negative) Urine RBC 2 (0-5) /hpf Urine WBC 2 (0-5) /hpf Ur Squamous Epith Cells 1 (0-4) /hpf Urine Mucus Rare H (None) /hpf - Radiology Data Radiology results: report reviewed (CT of pelvis positive for left sided kidney stone), image reviewed Disposition Clinical Impression: Ureteric calculus, Calculus of left kidney Disposition: HOME SELF-CARE Condition: Good Instructions (If sedation given, give patient instructions): Kidney Stones (ED) Is patient prescribed a controlled substance at d/c from ED?: No Referrals: Luis Eduardo Pa MD [Primary Care Provider] - 1-2 days
--- NOTE | 2018-06-11 13:44 | CT ---
EXAMINATION TYPE: CT abdomen pelvis wo con DATE OF EXAM: 06/11/2018 COMPARISON: 11/22/2017 INDICATION: Lt flank pain, history of renal stones DLP: 1667.4 mGycm, Automated exposure control for dose reduction was used. CONTRAST: 0 mL of Isovue 300. Study performed without Oral Contrast TECHNIQUE: Axial images were obtained from above the diaphragm to the pubic rami in the axial plane a t 5 mm thick sections. Reconstructed images are reviewed on the computer in the coronal plane. FINDINGS: Limited CT sections are obtained the lung bases. The lung bases are clear. CT ABDOMEN: Liver: Normal Spleen: Normal Pancreas: Normal Adrenal glands: The adrenal glands are normal. Gallbladder: Surgically absent Kidneys: No masses are evident. No hydronephrosis is present. No cysts are present. No renal stone s are identified. Previous left ureteral stent has been removed. Aorta: Normal Inferior vena cava: Normal. CT PELVIS: Loops of bowel within the abdomen and pelvis are normal. There are loops of bowel which are incom pletely distended or lack oral contrast limiting their evaluation. Appendix: Normal as visualized. Urinary bladder: Normal. Carefully tracking the left ureter course appears to correlate with a 0.3 cm distal left ureteral stone. No hydroureter is evident. No left hydronephrosis is evident. Correlate with the patient's symptoms. Genitourinary structures: Osseous structures: No suspicious lytic or sclerotic lesions. IMPRESSIONS: 1. There appears to be a nonobstructing 0.3 cm distal left ureteral stone without hydronephrosis or hydroureter. Differential could include a phlebolith.
[2018-06-11 13:54] VITALS: RESP 18
[2018-06-11 14:25] VITALS: BP 148/87; PULSE 81; TEMP 98.7
== END 2018-06-11 14:24 | disposition home or self-care (01) ==
LOC: EC 11:30
DX: N20.2 Calculus of kidney with calculus of ureter (principal); R00.0 Tachycardia, unspecified; I10 Essential (primary) hypertension; F17.200 Nicotine dependence, unspecified, uncomplicated; Z79.899 Other long term (current) drug therapy; Z87.19 Personal history of other diseases of the digestive system; Z90.49 Acquired absence of other specified parts of digestive tract
CPT/HCPCS: 36415; 80053; 82150; 83690; 85025; 81001; 87086; 74176; 99285; 96374; 96375; 96361; J2270; J1885

== ENCOUNTER → 2018-08-17 | Outpatient (CLI) | payer MEDICAID ==
--- NOTE | 2018-08-17 18:45 | CONS ---
CONSULTATION DATE OF SERVICE: 08/17/2018 37-year-old gentleman has been evaluated in [facility] for obstructive sleep apnea-hypopnea syndrome. HISTORY OF PRESENT ILLNESS SLEEP-WAKE EVALUATION: Patient was diagnosed with obstructive sleep apnea about 20 years ago. After that, was on treatment with CPAP but quit treatment about 8 years ago by a different reasons. SLEEP SCHEDULE: Presently his sleep schedule from 11:30 p.m. until 10 a.m. FALLING ASLEEP: No problems with falling asleep. No TV in bedroom. DURING SLEEP: Usually he sleeps in different positions, snores, has episodes of stopped breathing during the sleep. Wakes up with episodes of gasping for air and sweating and nocturia up to 8 times a night. DURING THE DAY/SLEEP WAKE EVALUATION: No history of hypnagogic hallucinations, sleep paralysis or cataplexy. In the morning, patient wakes up tired, falling asleep during the day. Has episodes of irritability, depression and anxiety. Greer Sleepiness Scale significantly increased to 14. PAST MEDICAL HISTORY: Positive for hypertension, depression and anxiety, irritable bowel syndrome. 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 Hernia repair, multiple surgeries on both knees. MEDICATIONS: Paxil, Bentyl, bisoprolol. SOCIAL HISTORY: Positive for smoking less than 1 pack a day for about 20 years. Quit about 3 years ago. Alcohol consumption up to 3 drinks about 3 times per week. FAMILY HISTORY: Hypertension, asthma, sleep apnea, snoring, asthma in childhood. REVIEW OF SYSTEMS: Multiple awakenings from sleep, sleepiness during the day. PHYSICAL EXAM: GENERAL: gentleman without distress. VITAL SIGNS: BP 144, 94, HR 75, RR 20, height 6 and 0, weight 334.0, body mass index 45.7, temperature 97.8, oxygen saturation at room air 94%. HEENT: Oropharynx low position of soft palate, Mallampati 2-3. Big uvula. Wide neck, 20 inches in circumference. NECK: Supple, no JVD. Thyroid is not palpable. LUNGS Clear to percussion and to auscultation. Good air exchange. No wheezing or rhonchi. HEART S1, S2 regular. No murmurs, gallops, or rubs. ABDOMEN: Obese. Soft and nontender. Bowel sounds are present. No organomegaly appreciated. EXTREMITIES No clubbing or cyanosis. [employer] Awake, alert, and oriented X3. Cranial nerves 2 to 7 intact. There is no fasciculation or atrophy. noted. No focal deficits observed. IMPRESSION: 1. Snoring, witnessed episodes of stopped breathing during the sleep, awakenings from sleep with gasping for air. 2. History of sleep apnea in the past, extremely wide neck 20 inches, sleepiness during the day. Greer Sleepiness Scale is 14. Big uvula. Obstructive sleep apnea-hypopnea syndrome. 3. Obesity, body mass index 45.7. 4. History of depression. 5. Hypertension. 6. Irritable bowel syndrome. 7. Status post multiple bilateral knee surgeries. 8. Status post hernia repair. 9. Status post surgery for pyloric stenosis in safety physician. 10.History of asthma in childhood. PLAN: 1. Polysomnography for evaluation of patient's breathing during sleep. 2. CPAP/BiPAP titration if sleep study confirms obstructive sleep apnea-hypopnea syndrome. 3. Preferable position during sleep on the side. 4. No driving if patient feels any sleepiness. 5. I will see patient for follow up visit to explain results of testing and following plan. Thank you very much for referring this patient for consultation. Sincerely, Johnnie Cantrell MD, PhD, FAASM Diplomat of [place] [employer] [place] [employer] Patient Account Representative of [facility] [place] [id number] / MANNIE: [phone] /
== END ==
LOC: SLEEP 10:58
PROVIDERS: ATTEND Internal Medicine
DX: G47.33 Obstructive sleep apnea (adult) (pediatric) (principal); E66.9 Obesity, unspecified; F32.9 Major depressive disorder, single episode, unspecified; K58.9 Irritable bowel syndrome, unspecified; Z98.890 Other specified postprocedural states; Z87.09 Personal history of other diseases of the respiratory system; Z79.899 Other long term (current) drug therapy; Z68.42 Body mass index [BMI] 45.0-49.9, adult; Z87.891 Personal history of nicotine dependence
CPT/HCPCS: 99211

== ENCOUNTER 2018-11-21 20:29 | Emergency (ER) | payer MEDICAID ==
[2018-11-21 20:37] VITALS: TEMP 98.7
[2018-11-21] MEDS ORDERED: ALPRAZolam 0.5 MG TAB PO STA (20:58)
[2018-11-21] MEDS ORDERED: hydrALAZINE HCL 20 MG/ML 1 ML VIAL IVP STA ×2 (20:58→23:33)
[2018-11-21 21:22] LABS: Basophils # (A) 0.1 k/uL (0-0.2); Basophils % (A) 1 %; Eosinophils # (A) 0.6 k/uL (0-0.7); Eosinophils % (A) 5 %; HCT 47.4 % (39.0-53.0); HGB 16.4 gm/dL (13.0-17.5); Lymphocytes # (A) 2.5 k/uL (1.0-4.8); Lymphocytes % (A) 23 %; MCH 33.5 pg (25.0-35.0); MCHC 34.7 g/dL (31.0-37.0); MCV 96.5 fL (80.0-100.0); Mean Platelet Volume 8.3; Monocytes # (A) 0.4 k/uL (0-1.0); Monocytes % (A) 4 %; Neutrophils # (A) 6.9 k/uL (1.3-7.7); Neutrophils % (A) 65 %; Platelet Count 249 k/uL (150-450); RBC 4.91 m/uL (4.30-5.90); RDW 14.6 % (11.5-15.5); WBC 10.6 k/uL (3.8-10.6)
[2018-11-21 21:26] LABS: ALT 46 U/L (21-72); AST 27 U/L (17-59); African American GFR (CKD) >90 (>60 ml/min/1.73 sqM); Albumin 4.3 g/dL (3.5-5.0); Alkaline Phosphatase 83 U/L (38-126); Anion Gap 9 mmol/L; Blood Urea Nitrogen 10 mg/dL (9-20); Calcium 9.6 mg/dL (8.4-10.2); Carbon Dioxide 26 mmol/L (22-30); Chloride 104 mmol/L (98-107); Glucose 143 mg/dL (74-99); Magnesium 1.9 mg/dL (1.6-2.3); Potassium 4.3 mmol/L (3.5-5.1); Sodium 139 mmol/L (137-145); Total Protein 7.2 g/dL (6.3-8.2)
[2018-11-21 21:27] LABS: Partial Thromboplastin Time 23.6 sec (22.0-30.0); Prothrombin Time 10.5 sec (9.0-12.0)
[2018-11-21 21:34] VITALS: RESP 16
--- NOTE | 2018-11-21 21:55 | XR ---
EXAMINATION: XR chest 2V DATE AND TIME: 11/21/2018 9:51 PM CLINICAL INDICATION: PHH; Chest Pain TECHNIQUE: Departmental protocol COMPARISON: 04/13/2012 FINDINGS: The lungs are clear. The pleural spaces are negative. The cardiac silhouette is not enlarged. The remainder of the mediastinal silhouette is unremarkable. The skeletal structures and soft tissues are negative for acute findings. IMPRESSION: NO ACUTE PROCESS.
--- NOTE | 2018-11-21 21:57 | ED ---
Recheck HPI - General Chief Complaint: Recheck/Abnormal Lab/Rx Stated Complaint: Hypertension Time Seen by Provider: 11/21/18 20:40 Source: patient Mode of arrival: ambulatory Limitations: no limitations - History of Present Illness Initial Comments: 38-year-old male with history of hypertension presenting today for chief complaint of elevated blood pressure. Patient states he noticed that he felt lightheaded today he felt slightly short of breath and noticed his blood pressure was high. He states he has had a very dull aching headache denies this being the worse headache of his life or sudden onset. He states that he is not dizzy as in the room spinning. He states is more of a lightheaded sensation. Patient denies syncope. Patient denies any chest pain or pain in thoracic back. Patient denies any leg swelling, decreased urination. Patient denies fevers, steroid use. Denies history of aneurysms or ACS. Patient appears well on arrival. BP noted to be elevated on arrival. - Related Data Home Medications Medication Instructions Recorded Confirmed Bisoprolol-Hctz 10-6.25 mg [Ziac 1 tab PO DAILY 11/06/17 11/21/18 10-6.25] Diphenox-Atrop 2.5-0.025 mg 1 tab PO QID PRN 11/06/17 11/21/18 [Lomotil] Dicyclomine [Bentyl] 10 mg PO QID PRN 06/11/18 11/21/18 Ibuprofen [Motrin Ib] 600 - 800 mg PO Q6H PRN 06/11/18 11/21/18 PARoxetine HCL [Paxil] 40 mg PO DAILY 06/11/18 11/21/18 ALPRAZolam [Xanax] 0.5 mg PO DAILY PRN 11/21/18 11/21/18 Previous Rx's Medication Instructions Recorded Naproxen [Naprosyn] 500 mg PO Q12HR PRN #30 tab 06/11/18 Allergies Allergy/AdvReac Type Severity Reaction Status Date / Time No Known Allergies Allergy Verified 11/21/18 21:10 Review of Systems ROS Statement: Those systems with pertinent positive or pertinent negative responses have been documented in the HPI. ROS Other: All systems not noted in ROS Statement are negative. Past Medical History Past Medical History: GERD/Reflux, Hypertension, Sleep Apnea/CPAP/BIPAP Additional Past Medical History / Comment(s): IBS, no cpap used, hiatal hernia, kidney stones History of Any Multi-Drug Resistant Organisms: None Reported Past Surgical History: Cholecystectomy, Hernia Repair, Orthopedic Surgery Additional Past Surgical History / Comment(s): arthroscopy rt knee surgery x6, arthroscopy left knee surgery x 1, umbilical hernia repair x 3, incisional hernia surgery, surgery as for pyloric stenosis, colonoscopy with multiple biopsies which showed a tubular adenoma in the rectum-09/2017 Past Anesthesia/Blood Transfusion Reactions: No Reported Reaction Past Psychological History: Anxiety, Depression Smoking Status: Current every day smoker Past Alcohol Use History: Occasional Past Drug Use History: None Reported - Past Family History Mother Family Medical History: No Reported History Additional Family Medical History / Comment(s): A maternal uncle and grandfather has Ashwin's disease General Exam - General Exam Comments Initial Comments: General: The patient is awake and alert, in no distress, and does not appear acutely ill. Eye: +3 mm pupils are equal, round and reactive to light, extra-ocular mo vements are intact. No nystagmus. There is normal conjunctiva bilaterally. No signs of icterus. examination of the retina revealed no obvious papilledema although views limited due to no dilation. Ears, nose, mouth and throat: There are moist mucous membranes and no oral lesions. Neck: The neck is supple, there is no tenderness or JVD. Cardiovascular: There is a regular rate and rhythm. No murmur, rub or gallop is appreciated. Respiratory: Lungs are clear to auscultation, respirations are non-labored, breath sounds are equal. No wheezes, stridor, rales, or rhonchi. Gastrointestinal: Soft, non-distended, non-tender abdomen without masses or organomegaly noted. There is no rebound or guarding present. No CVA tenderness. Bowel sounds are unremarkable. No pulsatile masses. Musculoskeletal: Normal ROM, no tenderness. Strength 5/5. Sensation intact. DP and radial pulses equal bilaterally 2+. Neurological: A&O x 3. CN II-XII intact, There are no obvious motor or sensory deficits. Coordination appears grossly intact. Speech is normal. Finger to nose, heel to payan smooth an coordinated. Gait smooth and coordinated.No ataxia. No pronator drift. Skin: Skin is warm and dry and no rashes or lesions are noted. No lower extremity edema Psychiatric: Cooperative, appropriate mood & affect, normal judgment. 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 Denies dizziness he states is more of a lightheaded versus a spin sarthak sensation. Patient states however his headache is feeling better. He states overall he is feeling better. We'll reassess. Medical Decision Making - Medical Decision Making Very well-appearing 38-year-old male presented for lightheaded sensation, slight shortness of breath, headache. Patient is no focal neurological deficits. States it is a very dull aching headache he does not feel it is severe. Patient feels is due to his blood pressure. Patient states he feels maybe slightly short of breath does not appear short of breath upon arrival heart rate within acceptable limits action will remember. He denies any chest pain. Troponin negative. Kidney function within acceptable limits. Patient producing urine. CT of the brain negative. Chest x-ray within normal limits. Patient denies any thoracic back pain or findings concerning for aortic dissection. EKG no findings consistent with acute coronary syndrome. Patient's BNP within normal limits no extremity edema. All pressure managed in the emergency department. Patient states he is feeling better. Patient prefers discharge home. Given no signs of end organ damage. Patient's well appearance with improvement of symptoms and absence of chest pain. Patient is stable for discharge with outpatient primary care follow-up for blood pressure management. We discussed various regimens to help manage blood pressure until next appointment with PCP. Patient verbalized understanding importance of measuring her blood pressure prior to taking medication. I discussed the case with my attending provider Dr. martins who reviewed imaging studies/labs and discussed case he is agreeable with care plan. - Lab Data Result diagrams: 11/21/18 21:00 11/21/18 21:00 Lab Results 11/21/18 11/21/18 11/21/18 Range/Units 21:00 21:00 21:00 WBC 10.6 (3.8-10.6) k/uL RBC 4.91 (4.30-5.90) m/uL Hgb 16.4 (13.0-17.5) gm/dL Hct 47.4 (39.0-53.0) % MCV 96.5 (80.0-100.0) fL MCH 33.5 (25.0-35.0) pg MCHC 34.7 (31.0-37.0) g/dL RDW 14.6 (11.5-15.5) % Plt Count 249 (150-450) k/uL Neutrophils % 65 % Lymphocytes % 23 % Monocytes % 4 % Eosinophils % 5 % Basophils % 1 % Neutrophils # 6.9 (1.3-7.7) k/uL Lymphocytes # 2.5 (1.0-4.8) k/uL Monocytes # 0.4 (0-1.0) k/uL Eosinophils # 0.6 (0-0.7) k/uL Basophils # 0.1 (0-0.2) k/uL PT (9.0-12.0) sec INR (<1.2) APTT (22.0-30.0) sec Sodium 139 (137-145) mmol/L Potassium 4.3 (3.5-5.1) mmol/L Chloride 104 (98-107) mmol/L Carbon Dioxide 26 (22-30) mmol/L Anion Gap 9 mmol/L BUN 10 (9-20) mg/dL Creatinine 0.92 (0.66-1.25) mg/dL Est GFR (CKD-EPI)AfAm >90 (>60 ml/min/1.73 sqM) Est GFR (CKD-EPI)NonAf >90 (>60 ml/min/1.73 sqM) Glucose 143 H (74-99) mg/dL Calcium 9.6 (8.4-10.2) mg/dL Magnesium 1.9 (1.6-2.3) mg/dL Total Bilirubin 1.0 (0.2-1.3) mg/dL AST 27 (17-59) U/L ALT 46 (21-72) U/L Alkaline Phosphatase 83 (38-126) U/L Troponin I (0.000-0.034) ng/mL NT-Pro-B Natriuret Pep 71 pg/mL Total Protein 7.2 (6.3-8.2) g/dL Albumin 4.3 (3.5-5.0) g/dL Urine Color Urine Appearance (Clear) Urine pH (5.0-8.0) Ur Specific [place] (1.001-1.035) Urine Protein (Negative) Urine Glucose (UA) (Negative) Urine Ketones (Negative) Urine Blood (Negative) Urine Nitrite (Negative) Urine Bilirubin (Negative) Urine Urobilinogen (<2.0) mg/dL Ur Leukocyte Esterase (Negative) Urine RBC (0-5) /hpf Urine WBC (0-5) /hpf Ur Squamous Epith Cells (0-4) /hpf Urine Mucus (None) /hpf 11/21/18 11/21/18 11/21/18 Range/Units 21:00 21:00 22:20 WBC (3.8-10.6) k/uL RBC (4.30-5.90) m/uL Hgb (13.0-17.5) gm/dL Hct (39.0-53.0) % MCV (80.0-100.0) fL MCH (25.0-35.0) pg MCHC (31.0-37.0) g/dL RDW (11.5-15.5) % Plt Count (150-450) k/uL Neutrophils % % Lymphocytes % % Monocytes % % Eosinophils % % Basophils % % Neutrophils # (1.3-7.7) k/uL Lymphocytes # (1.0-4.8) k/uL Monocytes # (0-1.0) k/uL Eosinophils # (0-0.7) k/uL Basophils # (0-0.2) k/uL PT 10.5 (9.0-12.0) sec INR 1.0 (<1.2) APTT 23.6 (22.0-30.0) sec Sodium (137-145) mmol/L Potassium (3.5-5.1) mmol/L Chloride (98-107) mmol/L Carbon Dioxide (22-30) mmol/L Anion Gap mmol/L BUN (9-20) mg/dL Creatinine (0.66-1.25) mg/dL Est GFR (CKD-EPI)AfAm (>60 ml/min/1.73 sqM) Est GFR (CKD-EPI)NonAf (>60 ml/min/1.73 sqM) Glucose (74-99) mg/dL Calcium (8.4-10.2) mg/dL Magnesium (1.6-2.3) mg/dL Total Bilirubin (0.2-1.3) mg/dL AST (17-59) U/L ALT (21-72) U/L Alkaline Phosphatase (38-126) U/L Troponin I <0.012 (0.000-0.034) ng/mL NT-Pro-B Natriuret Pep pg/mL Total Protein (6.3-8.2) g/dL Albumin (3.5-5.0) g/dL Urine Color Yellow Urine Appearance Clear (Clear) Urine pH 5.5 (5.0-8.0) Ur Specific [place] 1.021 (1.001-1.035) Urine Protein Negative (Negative) Urine Glucose (UA) Negative (Negative) Urine Ketones Negative (Negative) Urine Blood Negative (Negative) Urine Nitrite Negative (Negative) Urine Bilirubin Negative (Negative) Urine Urobilinogen <2.0 (<2.0) mg/dL Ur Leukocyte Esterase Small H (Negative) Urine RBC 1 (0-5) /hpf Urine WBC 5 (0-5) /hpf Ur Squamous Epith Cells 1 (0-4) /hpf Urine Mucus Rare H (None) /hpf - EKG Data EKG Comments: A 12-lead EKG was performed and shows the following: Rate is 95 bpm, and rhythm is normal sinus. There are normal QRS complexes and normal R-wave progression. ST segments have no elevation or depression, and PA segments appear normal. PA interval 148 ms, QRS duration 82 ms, QT/QTC 360/452 ms. Disposition Clinical Impression: Elevated blood pressure reading, Hypertensive urgency, Light headed, Headache Disposition: HOME SELF-CARE Condition: Good Instructions (If sedation given, give patient instructions): Heart Healthy Diet (ED), Hypertension (ED) Additional Instructions: Please use medication as discussed. Please follow-up with family doctor in the next 2 days. Keep BP log, and increased medications if BP is elevated in evening as discussed. Please return to emergency room if the symptoms increase or worsen or for any other concerns. Is patient prescribed a controlled substance at d/c from ED?: No Referrals: Luis Eduardo Pa MD [Primary Care Provider] - 1-2 days Time of Disposition: 00:16
--- NOTE | 2018-11-21 22:15 | CT ---
EXAMINATION: CT brain wo con DATE AND TIME: 11/21/2018 9:51 PM CLINICAL INDICATION: PHH; hypertension headache TECHNIQUE: LAMAR,HTN 1092.9; COMPARISON: None. FINDINGS: The calvarium is intact. There is no intracranial hemorrhage. There is no intracranial mass or mass effect. No definite new intra-axial or extra-axial attenuation defect. The paranasal sinuses, middle ear cavities, and mastoid sinus air cells are clear. The orbits are unremarkable. IMPRESSION: NO ACUTE PROCESS.
[2018-11-21 22:31] LABS: Appearance,Urine Clear (Clear); Bilirubin,Urine Negative (Negative); Blood,Urine Negative (Negative); Color,Urine Yellow; Glucose,Urine (UA) Negative (Negative); Ketones,Urine Negative (Negative); Leukocyte Esterase,Urine Small (Negative); Mucus,Urine Rare /hpf; Nitrite,Urine Negative (Negative); PH, Urine 5.5 (5.0-8.0); Protein,Urine Negative (Negative); RBC,Urine 1 /hpf (0-5); Specific Gravity,Urine 1.021 (1.001-1.035); Squamous Epithelial Cell,Urine 1 /hpf (0-4); Urobilinogen,Urine <2.0 mg/dL (<2.0); WBC,Urine 5 /hpf (0-5)
[2018-11-22 00:08] VITALS: BP 134/71; PULSE 94
== END 2018-11-22 00:41 | disposition home or self-care (01) ==
LOC: EC 20:29
DX: I16.0 Hypertensive urgency (principal); R51 Headache; R42 Dizziness and giddiness; I10 Essential (primary) hypertension; G47.30 Sleep apnea, unspecified; F41.9 Anxiety disorder, unspecified; F32.9 Major depressive disorder, single episode, unspecified; F17.200 Nicotine dependence, unspecified, uncomplicated; Z79.899 Other long term (current) drug therapy; Z99.89 Dependence on other enabling machines and devices
CPT/HCPCS: 36415; 93005; 83880; 80053; 83735; 84484; 85025; 85610; 85730; 81001; 71046; 70450; 99284; 96374; 96376; J0360

== ENCOUNTER → 2019-01-18 | Outpatient (CLI) | payer MEDICAID ==
--- NOTE | 2019-01-18 11:25 | SFUN ---
SLEEP CENTER FOLLOW UP NOTE DATE OF SERVICE: 01/18/2019 This 38-year-old gentleman has been followed in sleep center for treatment of obstructive sleep apnea-hypopnea syndrome. Recently patient had polysomnogram and CPAP titration and during the sleep studies it was shown that patient has extremely severe sleep apnea, which was normalized on treatment with CPAP. I discussed results of sleep studies with patient in details. Subsequently, he received his new CPAP unit, and today is his first visit after he started to use CPAP equipment. With CPAP, patient is sleeps better. Sleeps without awakening through the night. [place] Sleepiness Scale today is . I checked patient's CPAP unit usage is 29 out of 30 nights and 28 out of 30 nights for more than 4 hours with average use is 6.2 hours. Pressure is 11 cm of water. Leak is 23 L/minutes, which is borderline. Apnea-hypopnea index is 1.8, which is normal range. PHYSICAL EXAMINATION: During physical exam, patient in no distress. VITAL SIGNS: BP 130/86, HR 82, RR 16, weight 337, temp 98.3, oxygen saturation at room air 95%. HEENT: PERRLA, EOMI. Oropharynx low position of soft palate. Mallampati 3. NECK: Supple, no JVD. Thyroid is not palpable. LUNGS: Clear to percussion and to auscultation. Good air exchange. No wheezing or rhonchi. HEART: S1, S2 regular. No murmurs, gallops, or rubs. ABDOMEN: Obese. EXTREMITIES: No clubbing or cyanosis. FLOORING MECHANIC: Awake, alert, and oriented X3. Cranial nerves 2 to 7 intact. There is no fasciculation or atrophy. noted. No focal deficits observed. IMPRESSION: 1. Extremely severe obstructive sleep apnea-hypopnea syndrome. Apnea-hypopnea index 92.8 with oxygen desaturation 74.2%, on full control with CPAP at 11 cm of water. Patient demonstrated 100% compliance with treatment, benefitting from treatment. 2. Obesity. 3. History of depression. 4. Hypertension. 5. Irritable bowel syndrome. 6. Status post multiple bilateral knee surgeries. 7. Status post hernia repair. 8. 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 9. History of asthma in childhood. PLAN: 1. Patient will continue to use CPAP equipment every night for the whole night. 2. Losing weight. 3. Sleep hygiene with regular time in bed for at least 8 hours. 4. No driving if feeling any sleepiness. 5. . 6. Will maintain all necessary CPAP prescriptions including mask, tube, filters. Thank you very much for allowing me to participate in management of your patient. Sincerely, Johnnie Cantrell MD, PhD, FAASM Diplomat of [place] [employer] [place] [employer]v Mechan[employer] [facility] [place] MMODL / IJN: [id number] /
== END | disposition home or self-care (01) ==
LOC: SLEEP 10:20
PROVIDERS: ATTEND Internal Medicine
DX: G47.33 Obstructive sleep apnea (adult) (pediatric) (principal); E66.9 Obesity, unspecified; I10 Essential (primary) hypertension; Z86.59 Personal history of other mental and behavioral disorders; K58.9 Irritable bowel syndrome, unspecified; Z87.738 Personal history of other specified (corrected) congenital malformations of digestive system; Z87.09 Personal history of other diseases of the respiratory system; Z99.89 Dependence on other enabling machines and devices; Z96.653 Presence of artificial knee joint, bilateral; Z98.890 Other specified postprocedural states

== ENCOUNTER → 2019-01-29 | Outpatient (CLI) | payer MEDICAID ==
--- NOTE | 2019-01-29 10:30 | US ---
EXAMINATION TYPE: US abdomen complete DATE OF EXAM: 01/29/2019 COMPARISON: CT 2019, US 2017 CLINICAL HISTORY: R10.13 Abdominal pain, epigastric. Intermittent epigastric pain, history of cholecy stectomy EXAM MEASUREMENTS: Liver Length: 20.1 cm Gallbladder Wall: surgically absent CBD: 0.5 cm Spleen: 13.5 cm Right Kidney: 10.9 x 5.7 x 5.1 cm Left Kidney: 12.6 x 6.2 x 6.4 cm Difficult and limited study due to patient body habitus Pancreas: obscured by overlying midline bowel gas Liver: enlarged, heterogeneous, attenuating, increased echogenicity, decreased visualization of vess els. This limits evaluation for hepatic masses. Gallbladder: surgically absent Evidence for sonographic Borrego's sign: no CBD: visualized portions wnl, limited by overlying bowel gas Spleen: enlarged Right Kidney: no hydronephrosis or masses seen Left Kidney: no hydronephrosis or masses seen Upper IVC: wnl Abd Aorta: visualized portions wnl, limited by overlying midline bowel gas The liver is hyperechoic and heterogenous as well as enlarged. The intrahepatic portion of the IVC a nd proximal abdominal aorta are within normal limits. Common bile duct is unremarkable. The pancreas is obscured by overlying bowel gas. Gallbladder is surgically absent. The spleen is enlarged. Kidn eys are symmetric and free of hydronephrosis. No renal lesions are seen. IMPRESSION: 1. Hepatosplenomegaly. 2. Sonographic findings most commonly related to hepatic steatosis. Correlate with liver function elinor ts. 3. Surgical absence of the gallbladder. 4. Obscuration of the pancreas by overlying bowel gas.
== END | disposition home or self-care (01) ==
LOC: RADUSWWP 08:32
PROVIDERS: ATTEND Internal Medicine Gastroenterology
DX: R16.2 Hepatomegaly with splenomegaly, not elsewhere classified (principal); Z90.49 Acquired absence of other specified parts of digestive tract
CPT/HCPCS: 76700

== ENCOUNTER → 2019-03-17 | Outpatient (CLI) | payer MEDICAID ==
[2019-03-17 11:56] LABS: HCT 48.9 % (39.0-53.0); HGB 17.6 gm/dL (13.0-17.5); MCH 34.1 pg (25.0-35.0); MCHC 36.1 g/dL (31.0-37.0); MCV 94.6 fL (80.0-100.0); Mean Platelet Volume 6.9; Platelet Count 272 k/uL (150-450); RBC 5.17 m/uL (4.30-5.90); RDW 12.6 % (11.5-15.5); WBC 9.8 k/uL (3.8-10.6)
[2019-03-17 12:23] LABS: Prothrombin Time 10.6 sec (9.0-12.0)
[2019-03-17 23:10] LABS: Albumin 4.5 g/dL (3.80-4.90); Albumin/Globulin Ratio 1.96 (1.60-3.17); Bilirubin, Conjugated 0.6 mg/dL (0.20-0.40); Bilirubin,Unconjugated 1.7 mg/dL; Globulin 2.3 g/dL (1.6-3.3); Total Bilirubin 2.3 mg/dL (0.2-1.2); Total Protein 6.8 g/dL (6.2-8.2)
[2019-03-17 23:31] LABS: Hepatitis B Surface Antigen Non-Reactive (Non-Reactive); Hepatitis C IgG Antibody Non-Reactive (Non-Reactive)
[2019-03-17 23:32] LABS: Hepatitis A Antibody IgM Non-Reactive (Non-Reactive); Hepatitis B Core IgM Non-Reactive (Non-Reactive)
== END | disposition home or self-care (01) ==
LOC: LABWHC1 10:57
PROVIDERS: ATTEND Physician Assistant
DX: K76.0 Fatty (change of) liver, not elsewhere classified (principal)
CPT/HCPCS: 36415; 80074; 80076; 85027; 85610

== ENCOUNTER → 2019-12-10 | Outpatient (CLI) | payer MEDICAID ==
--- NOTE | 2019-12-10 22:40 | MR ---
EXAMINATION TYPE: MR cervical spine wo con DATE OF EXAM: 12/10/2019 COMPARISON: None HISTORY: Neck pain, Saman arm numbness CONTRAST: Performed utilizing 0 mL intravenous Gadavist gadolinium contrast. TECHNIQUE: Multiplanar multiecho imaging on a 3.0 Rebecca magnet is performed through the cervical spin e. FINDINGS: The craniovertebral junction is normal. Vertebral body alignment is normal. Upper to mid cervical spine has disc desiccation. Disc heights appear preserved. C7-T1: No focal disc herniation or significant disc bulge is evident. No spinal canal stenosis or n eural foraminal stenosis is present. C6-7: No focal disc herniation or significant disc bulge is evident. No spinal canal stenosis or claude ral foraminal stenosis is present. C5-6: Minimal disc bulge is evident with anterior thecal sac flattening. No AP spinal canal stenosis present. No cord contact is evident. Some uncovertebral joint hypertrophy is present with mild left f oraminal narrowing.. C4-5: No focal disc herniation or significant disc bulge is evident. No spinal canal stenosis or claude ral foraminal stenosis is present. C3-4: No focal disc herniation or significant disc bulge is evident. No spinal canal stenosis or claude ral foraminal stenosis is present. C2-3: No focal disc herniation or significant disc bulge is evident. No spinal canal stenosis or claude ral foraminal stenosis is present. Spinal cord maintains normal signal through its visualized course. IMPRESSIONS: 1. Very mild disc bulging C5-6 with mild left foraminal narrowing. 2. Disc desiccation without loss of disc height.
== END | disposition home or self-care (01) ==
LOC: RADMRIMAIN 16:26
PROVIDERS: ATTEND Family Medicine
DX: M48.02 Spinal stenosis, cervical region (principal); M50.222 Other cervical disc displacement at C5-C6 level
CPT/HCPCS: 72141

== ENCOUNTER → 2020-06-26 | Outpatient (CLI) | payer MEDICAID ==
--- NOTE | 2020-06-26 22:32 | SFUN ---
SLEEP CENTER FOLLOW UP NOTE DATE OF SERVICE: 06/26/2020 This 39-year-old gentleman has been followed in Sleep Center for treatment of obstructive sleep apnea-hypopnea syndrome. The patient continues to use his CPAP equipment every night for the whole night, but recently he started to develop some discomfort in his nose. [place] Sleepiness Scale today is 6. I checked his CPAP unit. Pressure is 11 cm of water. Usage is 24/30 nights, 10/30 nights for more than 4 hours. Average use is 3.9 hours per night. Leak is 32 L/minute, which is borderline. Apnea-hypopnea index is 3.0, which is normal. MEDICATIONS: 1. Alprazolam 0.5 mg q.8 hours. 2. Bisoprolol/hydrochlorothiazide 10/6.25 mg once a day. 3. Metformin 500 mg twice a day. 4. Paroxetine 40 mg once a day. 5. 5 mg once a day. PHYSICAL EXAMINATION: GENERAL: A pleasant patient in no distress. VITAL SIGNS: BP 163/91, HR 81, RR 15, height 5 feet 11 inches, weight 311.8, temperature 97.0, oxygen saturation at room air 94%. Body mass index 43.2. HEENT: PERRLA, EOMI. Evaluation of oropharynx showed tongue protrudes midline. Low position of soft palate. Mallampati III. NECK: Supple. No JVD. Thyroid is not palpable. LUNGS: Clear to percussion and to auscultation. Good air exchange. No wheezing or rhonchi. HEART: S1, S2 regular. No murmurs, gallops or rubs. ABDOMEN: Obese. EXTREMITIES: No clubbing or cyanosis. GRAIN WAFER MACHINE OPERATOR: Awake, alert, and oriented X3. Cranial nerves 2 to 7 intact. There is no fasciculation or atrophy. noted. No focal deficits observed. IMPRESSION: 1. Severe obstructive sleep apnea-hypopnea syndrome; apnea-hypopnea index 92.8 with oxygen desaturation to 74.2%, under control with CPAP. 2. Patient developed some sinus problems recently. 3. Obesity. 4. History of depression. 5. Hypertension. 6. Irritable bowel syndrome. 7. Status post multiple knee surgeries bilaterally. 8. Status post hernia repair. 9. Status post surgery for pyloric stenosis syndrome in childhood. 10.History of asthma in childhood. PLAN: 1. I changed regimen of the machine to automatic with range of the pressure 5 to 11 with a goal to generally decrease the pressure in the CPAP unit subsequently to prevent any sinus issues. 2. Patient will continue to use PAP equipment every night for the whole night. 3. Sleep hygiene with regular time in bed for at least 7-1/2 to 8 hours. 4. Precautions related to driving. No driving if feeling sleepiness. 5. I will maintain all necessary prescription for PAP supplies including mask, tube, filters. 6. Aggressive losing weight program. 7. Follow-up visit in 6 months or earlier if patient has any problems. 8. Prescription to replace in the machine. Thank you very much for allowing me to participate in the management of your patient. Sincerely, Johnnie Cantrell MD, PhD, FAASM Diplomat of [place] [employer] Specialties [place] [employer] of [employer] Medicine Blister Pack Operator [facility] [place] MMODL / TRISTIANN: [id number] /
== END ==
LOC: SLEEP 17:13
PROVIDERS: ATTEND Internal Medicine
DX: G47.33 Obstructive sleep apnea (adult) (pediatric) (principal); E66.9 Obesity, unspecified; Z68.41 Body mass index [BMI] 40.0-44.9, adult; I10 Essential (primary) hypertension; F32.9 Major depressive disorder, single episode, unspecified; K58.9 Irritable bowel syndrome, unspecified; Z98.890 Other specified postprocedural states; J45.909 Unspecified asthma, uncomplicated; J32.9 Chronic sinusitis, unspecified

== ENCOUNTER 2020-06-30 06:49 | Day surgery (SDC) | payer MEDICAID ==
[2020-06-27 11:13] VITALS: BMI 43.7
[~2020-06-30 06:49] MED LIST: LACTATED RINGERS 1,000 ML IV SCH
[2020-06-30 07:19] VITALS: TEMP 97.2
[2020-06-30 07:29] LABS: Glucose,Whole Blood 121 mg/dL (75-99)
[2020-06-30] MEDS ORDERED: fentaNYL (PF) 50 MCG/ML 2 ML AMP ONE (07:43)
[2020-06-30] MEDS ORDERED: PROPOFOL 10 MG/ML 20 ML VIAL IV ONE (07:43)
[2020-06-30] MEDS ORDERED: MIDAZOLAM 2 MG/2 ML VIAL ONE (07:43)
--- NOTE | 2020-06-30 08:44 | P.PCN ---
Date of Procedure: 06/30/20 Description of Procedure: BRIEF HISTORY: Patient is a 39-year-old female presenting for outpatient colonoscopy for evaluation of hemorrhage of the anus and rectum. Patient has a family history of polyposis syndrome. Last colonoscopy in 2018 significant for large 1.5 cm broad-based colon polyp. Patient has had intermittent blood per rectum. PROCEDURE PERFORMED: Colonoscopy with polypectomy and Endo Clip placement. PREOPERATIVE DIAGNOSIS: Hemorrhage of the anus and rectum, personal history of colon polyps, last colonoscopy 2018. ESTIMATED BLOOD LOSS: Minimal. IV sedation per Anesthesia. PROCEDURE: After informed consent was obtained, the patient, was brought into the endoscopy unit. IV sedation was administered by Anesthesia under continuous monitoring. Digital rectal examination was normal. Initially the Olympus CF-190 flexible video colonoscope was then inserted in the rectum, gradually advanced into the cecum without any difficulty. Careful examination was performed as the scope was gradually being withdrawn. Ileocecal valve and the appendiceal orifice were visualized and appeared normal. Prep was excellent. Mucosa of the cecum, ascending colon, transverse colon, descending colon, sigmoid colon, and rectum appeared normal. At 30 cm from the anal verge there was what appeared to be a polyp stalk, this was removed in piecemeal fashion by snare polypectomy and cold forcep polypectomy with Endo Clip placement for hemostasis (unclear if this was the stalk from prior polypectomy). Retroflexion was performed in the rectum and no lesions were seen, large internal hemorrhoids. The patient tolerated the procedure well. IMPRESSION: Rectal polyp removed with hot snare polypectomy and cold forcep polypectomy with Endo Clip placement, performed in piecemeal fashion. Internal hemorrhoids. Otherwise normal-appearing colon from rectum to cecum. RECOMMENDATIONS: Findings of this examination were discussed with the patient and his family. Okay to resume diet. Okay to resume medication. Await pathology from polypectomy and biopsy. If pathology confirms polyp would recommend repeat flexible sigmoidoscopy in 3-6 months for piecemeal resection of polyps. Otherwise repeat colonoscopy in 3 years given family history of polyposis syndrome and personal history of colon polyps.
[2020-06-30 09:11] VITALS: BP 141/91; PULSE 80; RESP 20
== END 2020-06-30 09:28 | disposition home or self-care (01) ==
LOC: ORWHC2ENDO 06:49
PROVIDERS: ATTEND Internal Medicine
DX: K62.1 Rectal polyp (principal); Z86.010 Personal history of colon polyps; Z83.71 Family history of colonic polyps; K64.8 Other hemorrhoids; K58.9 Irritable bowel syndrome, unspecified; K21.9 Gastro-esophageal reflux disease without esophagitis; I10 Essential (primary) hypertension; G47.33 Obstructive sleep apnea (adult) (pediatric); Z99.89 Dependence on other enabling machines and devices; F17.200 Nicotine dependence, unspecified, uncomplicated; Z90.49 Acquired absence of other specified parts of digestive tract; Z98.890 Other specified postprocedural states; Z79.84 Long term (current) use of oral hypoglycemic drugs; Z79.899 Other long term (current) drug therapy
CPT/HCPCS: 88305; 45385; J2250; J3010; J2704; 45380; 45382

== ENCOUNTER → 2020-12-06 | Outpatient (CLI) | payer MEDICAID ==
--- NOTE | 2020-12-06 13:40 | XR ---
EXAMINATION TYPE: XR lumbar spine 2 or 3V DATE OF EXAM: 12/06/2020 CLINICAL HISTORY: Low back pain. TECHNIQUE: Frontal, lateral, and oblique images of the lumbar spine are obtained. COMPARISON: CT abdomen pelvis 06/11/2018 FINDINGS: There are 5 lumbar type vertebral bodies identified. The lumbar spine shows satisfactory alignment without evidence of acute fracture or dislocation. Vertebral body heights and disk space he ights are within normal limits. The oblique images appear within normal limits. The overlying soft tissue appears unremarkable. Incidental note is made of mild anterior wedging of the T11 vertebral body similar to prior CT. Right upper quadrant clips. IMPRESSION: No acute fracture or dislocation is seen in the lumbar spine.
== END | disposition home or self-care (01) ==
LOC: RADXRMAIN 12:46
PROVIDERS: ATTEND Family Medicine
DX: M54.5 Low back pain (principal)
CPT/HCPCS: 72100

== ENCOUNTER → 2021-02-12 | Outpatient (CLI) | payer MEDICAID ==
--- NOTE | 2021-02-13 12:08 | SFUN ---
SLEEP CENTER FOLLOW UP NOTE DATE OF SERVICE: 02/12/2021 This 40-year-old gentleman has been followed in Sleep Center for treatment of obstructive sleep apnea-hypopnea syndrome. The patient continues to use his CPAP equipment every night. He sleeps well. His only complaint is that when he starts to use CPAP equipment, the pressure is too low and there is not enough air for him. Rodney Sleepiness Scale today is 7, which is normal. I checked his CPAP machine. Range of the pressure is 5 to 11 with average pressure 9.1. Usage is 20/30 nights and 12/30 nights for more than 4 hours, average 3.2 hours per night. Leak is 6 L/minute. Apnea-hypopnea index is 3.4, which is normal. MEDICATIONS: 1. Bisoprolol 10/6.25 mg once a day. 2. Cyclobenzaprine 10 mg q.8 hours. 3. 5 mg q.24 hours. PHYSICAL EXAMINATION: GENERAL: Pleasant patient in no distress. VITAL SIGNS: BP 167/93, HR 92, RR 15, height 5 feet 10 inches, weight 308.6. Patient lost 3 pounds since his last visit. Body mass index 43.3. Temperature 97.1, oxygen saturation at room air 96%. HEENT: PERRLA, EOMI, evaluation of oropharynx showed tongue protrudes midline. Low position of soft palate; Mallampati III. NECK: Supple, no JVD. Thyroid is not palpable. LUNGS: Clear to percussion and to auscultation. Good air exchange. No wheezing or rhonchi. HEART: S1, S2 regular. No murmurs, gallops, or rubs. ABDOMEN: Slightly obese. EXTREMITIES: No clubbing or cyanosis. BOX CAR LOADER: Awake, alert, and oriented X3. Cranial nerves 2 to 7 intact. There is no fasciculation or atrophy. noted. No focal deficits observed. IMPRESSION: 1. Extremely severe obstructive sleep apnea-hypopnea syndrome. Original apnea- hypopnea index 92.8 with oxygen desaturation to 74.2%. Normal respiration on CPAP. Patient demonstrated borderline compliance with treatment. The patient complained that the pressure at the beginning of the night is too low for him. 2. History of sinus problems. Obesity. 3. History of depression. 4. Hypertension. 5. Irritable bowel syndrome. 6. Status post multiple knee surgeries bilaterally. 7. Status post hernia repair. 8. Status post surgery for pyloric stenosis syndrome in childhood. 9. History of asthma in childhood. PLAN: 1. I increased the regimen of pressure in the automatic machine to 7 to 13 cm of water. The patient tried using the machine in the office, and he feels comfortable with that range of pressure. 2. Patient will continue to use PAP equipment every night for the whole night. 3. Sleep hygiene with regular time in bed for at least 7-1/2 to 8 hours. 4. Precautions related to driving. No driving if feeling sleepiness. 5. I will maintain all necessary prescription for PAP supplies including mask, tube, filters. 6. Watching weight. 7. Follow-up visit in 6 months or earlier if patient has any problems. Thank you very much for allowing me to participate in the management of your patient. Sincerely, Johnnie Cantrell MD, PhD, FAASM Diplomat of [place] [employer] Sleep Medicine Board of [place] [employer] Director Of Instruction of [facility] MMODL / IJN: [id number] /
== END ==
LOC: SLEEP 16:36
PROVIDERS: ATTEND Internal Medicine
DX: G47.33 Obstructive sleep apnea (adult) (pediatric) (principal); G47.36 Sleep related hypoventilation in conditions classified elsewhere; E66.9 Obesity, unspecified; F32.9 Major depressive disorder, single episode, unspecified; I10 Essential (primary) hypertension; F17.200 Nicotine dependence, unspecified, uncomplicated; J45.909 Unspecified asthma, uncomplicated; K58.9 Irritable bowel syndrome, unspecified; Z98.890 Other specified postprocedural states; Z87.09 Personal history of other diseases of the respiratory system; Z99.89 Dependence on other enabling machines and devices; Z68.42 Body mass index [BMI] 45.0-49.9, adult; Z79.899 Other long term (current) drug therapy

== ENCOUNTER → 2021-05-09 | Outpatient (CLI) | payer MEDICAID ==
--- NOTE | 2021-05-10 15:38 | MR ---
EXAMINATION TYPE: MR lumbar spine wo con DATE OF EXAM: 05/09/2021 COMPARISON: Plain film 12/06/2020 HISTORY: LBP, RLE radiculopathy x 2 years. TECHNIQUE: Multiplanar, multisequence images of the lumbar spine were acquired without IV contrast. Findings: There is motion on exam. L1-L2: Normal disc appearance without desiccation. No herniation, protrusion or disc bulging. No ca nal stenosis is present. Foramina are patent bilaterally. L2-L3: Normal disc appearance without desiccation. No herniation, protrusion or disc bulging. No ca nal stenosis is present. Foramina are patent bilaterally. L3-L4: Normal disc appearance without desiccation. No herniation, protrusion or disc bulging. No ca nal stenosis is present. Foramina are patent bilaterally. L4-L5: Posterior broad-based disc bulge extends laterally, circumferentially to cause some minimal en croachment on the inferior aspect of the neural foramen bilaterally, no significant spinal stenosis. L5-S1: Right posterior paracentral broad-based disc bulge is present, circumferential extension may c ause some right-sided foraminal encroachment. There is facet arthropathy change present. Epidural lip omatosis changes present. No significant spinal stenosis. Lumbar segments are intact. No paraspinal masses are identified. Conus medullaris has a normal appe arance. Lumbar vertebral bodies show preserved height and alignment. Loss of disc height signal is pr esent at L5-S1, L4-5 associated with disc desiccation and degenerative disc disease. IMPRESSION: Mild degenerative disc disease, facet arthropathy as described
== END | disposition home or self-care (01) ==
LOC: RADMRIMAIN 14:44
PROVIDERS: ATTEND Physical Medicine & Rehabilitation
DX: M51.16 Intervertebral disc disorders with radiculopathy, lumbar region (principal); M47.26 Other spondylosis with radiculopathy, lumbar region
CPT/HCPCS: 72148

== ENCOUNTER → 2022-09-28 | Outpatient (CLI) | payer MEDICAID ==
--- NOTE | 2022-10-01 23:36 | MR ---
EXAMINATION TYPE: MR knee RT wo con DATE OF EXAM: 09/28/2022 COMPARISON: NONE HISTORY: Rt knee medial pain for one month, fall injury. History of prior surgery. TECHNIQUE: Multiplanar, multisequence images of the knee is performed without IV contrast. FINDINGS: MEDIAL MENISCUS: Posterior horn has truncated appearance with abnormal signal extending to superior a rticular surface sagittal image 11. LATERAL MENISCUS: Vertical oriented increased signal posterior horn sagittal image 32 extends to sridhar cular surface. CRUCIATE LIGAMENTS: The posterior cruciate ligament is intact. Anterior cruciate ligament has marked increased signal and annular fibers.. COLLATERAL LIGAMENTS: The medial collateral ligament and lateral collateral ligament complex are inta ct. Marked increased fluid signal surrounds superficial and deep fibers of the medial collateral liga ment. EXTENSOR MECHANISM: Visualized quadriceps and patellar tendons are intact. EFFUSION: No significant suprapatellar joint effusion. POPLITEAL CYST: No popliteal/guardado cyst. TRICOMPARTMENT SPACES: Mild to moderate tricompartment joint space loss. No significant spurring. CARTILAGE: Tricompartmental articular cartilage is maintained. BONE MARROW SIGNAL: Some overall heterogeneity. No obvious focal edema. OTHER: No additional significant abnormality is appreciated. IMPRESSION: 1. Vertical full thickness tear posterior horn lateral meniscus. 2. Full-thickness tear posterior horn medial meniscus. 3. Significant sprain injury to the medial collateral ligament. 4. Partial tearing of the anterior cruciate ligament.
== END | disposition home or self-care (01) ==
LOC: RADMRIMAIN 07:49
PROVIDERS: ATTEND Orthopaedic Surgery Sports Medicine
DX: S83.241A Other tear of medial meniscus, current injury, right knee, initial encounter (principal); S83.411A Sprain of medial collateral ligament of right knee, initial encounter; S83.511A Sprain of anterior cruciate ligament of right knee, initial encounter; M17.11 Unilateral primary osteoarthritis, right knee; X58.XXXA Exposure to other specified factors, initial encounter

== ENCOUNTER 2023-05-14 19:24 | Emergency (ER) | payer BC, MEDICAID ==
[2023-05-14 20:35] LABS: Basophils # (A) 0.1 k/uL (0-0.2); Basophils % (A) 1 %; Eosinophils # (A) 0.3 k/uL (0-0.7); Eosinophils % (A) 3 %; HCT 51.7 % (39.0-53.0); Lymphocytes # (A) 2.6 k/uL (1.0-4.8); Lymphocytes % (A) 24 %; MCH 32.5 pg (25.0-35.0); MCHC 34.8 g/dL (31.0-37.0); MCV 93.3 fL (80.0-100.0); Mean Platelet Volume 8.4; Monocytes # (A) 0.6 k/uL (0-1.0); Monocytes % (A) 5 %; Neutrophils # (A) 7.4 k/uL (1.3-7.7); Neutrophils % (A) 66 %; Platelet Count 268 k/uL (150-450); RBC 5.54 m/uL (4.30-5.90); WBC 11.2 k/uL (3.8-10.6)
[2023-05-14 20:45] LABS: ALT 45 U/L (4-49); AST 28 U/L (17-59); African American GFR (CKD) >90 (>60 ml/min/1.73 sqM); Albumin 4.2 g/dL (3.5-5.0); Alkaline Phosphatase 84 U/L (38-126); Amylase 52 U/L (30-110); Anion Gap 9 mmol/L; Blood Urea Nitrogen 13 mg/dL (9-20); Calcium 9.1 mg/dL (8.4-10.2); Carbon Dioxide 20 mmol/L (22-30); Chloride 109 mmol/L (98-107); Glucose 153 mg/dL (74-99); Lipase 135 U/L (23-300); Non-African American GFR(CKD) >90 (>60 ml/min/1.73 sqM); Potassium 4.2 mmol/L (3.5-5.1); Sodium 138 mmol/L (137-145); Total Bilirubin 1.5 mg/dL (0.2-1.3); Total Protein 7.1 g/dL (6.3-8.2)
[2023-05-14] MEDS ORDERED: MORPHINE SULFATE 4 MG/ML SYRINGE IVP STA (21:10)
[2023-05-14] MEDS ORDERED: SODIUM CHLORIDE 0.9% 1,000 ML IV STA (21:11)
[2023-05-14] MEDS: SODIUM CHLORIDE 0.9% 1,000 ML IV STA ×2 (21:20→21:26)
--- NOTE | 2023-05-14 21:45 | XR ---
EXAMINATION TYPE: XR KUB DATE OF EXAM: 05/14/2023 COMPARISON: 06/09/2016 INDICATION: Mid abdominal pain, IBS TECHNIQUE: Single view abdomen upright and supine views FINDINGS: There is a normal bowel gas pattern. No free air is evident. No suspicious differential air-fluid lev els are evident. Some nonspecific small bowel gas may be within the mid abdomen. Psoas margins are normal. No organomegaly is present. IMPRESSION: 1. Nonspecific abdomen
[2023-05-14] MEDS ORDERED: ACETAMINOPHEN TAB 500 MG TAB PO STA (21:58)
--- NOTE | 2023-05-14 22:18 | ED ---
Abdominal Pain HPI - General Chief Complaint: Abdominal Pain Stated Complaint: Abd pain Time Seen by Provider: 05/14/23 19:39 Source: patient Mode of arrival: ambulatory Limitations: no limitations - History of Present Illness Initial Comments: 42-year-old male with a past surgical history significant for cholecystectomy presenting to the ED with a chief complaint of abdominal pain. Patient states last started to experience umbilical/epigastric abdominal pain. Patient notes that he has a constant ache with intermittent cramping of the epigastric/um bilical region. Patient did note pain started approximately an hour after eating. Today, states continuous symptoms from last night and notes again after dinner worsening of symptoms. Associated diarrhea. No other changes in bowel habits. No changes in urinary habits. No nausea or vomiting. No chest pain or shortness of breath. No other complaints. - Related Data Home Medications Medication Instructions Recorded Confirmed Bisoprolol-Hctz 10-6.25 mg [Ziac 1 tab PO DAILY 11/06/17 06/30/20 10-6.25] Ibuprofen [Motrin Ib] 600 - 800 mg PO Q6H PRN 06/11/18 06/30/20 ALPRAZolam [Xanax] 0.5 mg PO DAILY PRN 11/21/18 06/30/20 Ertugliflozin Pidolate [Steglatro] 5 mg PO DAILY 06/27/20 06/30/20 metFORMIN HCL [Glucophage] 500 mg PO BID 06/27/20 06/30/20 Allergies Allergy/AdvReac Type Severity Reaction Status Date / Time No Known Allergies Allergy Verified 05/14/23 19:37 Review of Systems ROS Statement: Those systems with pertinent positive or pertinent negative responses have been documented in the HPI. ROS Other: All systems not noted in ROS Statement are negative. Past Medical History Past Medical History: GERD/Reflux, Hypertension, Sleep Apnea/CPAP/BIPAP Additional Past Medical History / Comment(s): IBS, no cpap used, hiatal hernia, kidney stones History of Any Multi-Drug Resistant Organisms: None Reported Past Surgical History: Cholecystectomy, Hernia Repair, Orthopedic Surgery Additional Past Surgical History / Comment(s): arthroscopy rt knee surgery x6, arthroscopy left knee surgery x 1, umbilical hernia repair x 3, incisional hernia surgery, surgery as infant for pyloric stenosis, colonoscopy with multiple biopsies which showed a tubular adenoma in the rectum-09/2017 Past Anesthesia/Blood Transfusion Reactions: No Reported Reaction Past Psychological History: Anxiety, Depression Smoking Status: Current every day smoker Past Alcohol Use History: Occasional Past Drug Use History: None Reported - Past Family History Mother Family Medical History: No Reported History Additional Family Medical History / Comment(s): A maternal uncle and grandfather has [place]'s disease General Exam Limitations: no limitations General appearance: alert, in no apparent distress Eye exam: Present: normal appearance Neck exam: Present: normal inspection Respiratory exam: Present: normal lung sounds bilaterally Cardiovascular Exam: Present: regular rate, normal rhythm GI/Abdominal exam: Present: soft (No hernias noted on valsava. No significant tenderness to palpation. Abdomen soft. No rebound guarding or rigidity.) Neurological exam: Present: alert, oriented X3 Skin exam: Present: warm, dry Course Vital Signs 05/14/23 05/14/23 05/14/23 19:35 20:37 21:00 Temperature 98.2 F Pulse Rate 95 90 90 Respiratory 18 18 18 Rate Blood Pressure 181/117 142/99 137/88 O2 Sat by Pulse 96 97 97 Oximetry 05/14/23 23:52 Temperature 98.8 F Pulse Rate 85 Respiratory 16 Rate Blood Pressure 138/92 O2 Sat by Pulse 97 Oximetry Medical Decision Making - Medical Decision Making Was pt. sent in by a medical professional or institution (VILMA Jackson, CARGO SERVICES COORDINATOR, urgent care, hospital, or detention...) When possible be specific @ -No Did you speak to anyone other than the patient for history (EMS, parent, family, police, friend...)? What history was obtained from this source @ -No Did you review nursing and triage notes (agree or disagree)? Why? @ -I reviewed and agree with nursing and triage notes Were old charts reviewed (outside hosp., previous admission, EMS record, old EKG, old radiological studies, urgent care reports/EKG's, detention records)? Report findings @ -No old charts were reviewed Differential Diagnosis (chest pain, altered mental status, abdominal pain women, abdominal pain men, vaginal bleeding, weakness, fever, dyspnea, syncope, headache, dizziness, GI bleed, back pain, seizure, CVA, palpatations, mental health, musculoskeletal)? @ -Differential Abdominal Pain Men: Appendicitis, cholecystitis, diverticulosis, ischemic bowel, pancreatitis, hepatitis, UTI, gastroenteritis, AAA, incarcerated hernia, bowel obstruction, constipation, inflammatory bowel, hepatitis, peptic ulcer disease, splenic infarction, perforated viscus, testicular torsion, this is not meant to be an all-inclusive list EKG interpreted by me (3pts min.). @ -None X-rays interpreted by me (1pt min.). @ -None done CT interpreted by me (1pt min.). @ -CT abdomen pelvis interpreted by me showing no evidence of acute finding. U/S interpreted by me (1pt. min.). @ -None done What testing was considered but not performed or refused? (CT, X-rays, U/S, labs)? Why? @ -None What meds were considered but not given or refused? Why? @ -None Did you discuss the management of the patient with other professionals (professionals i.e. , PA, CARGO SERVICES COORDINATOR, lab, RT, psych nurse, marriage and family social worker, registered vascular technologist (rvt), teacher, armoured corps officer, trimming caser)? Give summary @ -No Was smoking cessation discussed for >3mins.? @ -No Was critical care preformed (if so, how long)? @ -No Were there social determinants of health that impacted care today? How? (Homelessness, low income, unemployed, alcoholism, drug addiction, transportation, low edu. Level, literacy, decrease access to med. care, senior living, rehab)? @ -No Was there de-escalation of care discussed even if they declined (Discuss DNR or withdrawal of care, Hospice)? DNR status @ -No What co-morbidities impacted this encounter? (DM, HTN, Smoking, COPD, CAD, Cancer, CVA, ARF, Chemo, Hep., AIDS, mental health diagnosis, sleep apnea, morbid obesity)? @ -None Was patient admitted / discharged? Hospital course, mention meds given and route, prescriptions, significant lab abnormalities, going to OR and other pertinent info. @ -Discharge 42-year-old male presents to the ED with 1 day history of epigastric/umbilical abdominal pain and nonbloody diarrhea. Laboratory studies reviewed. CBC shows elevation of white blood cell count 11.2 hemoglobin at 18. Chemistry panel largely unremarkable. UA shows no evidence of infection. Serology panel unremarkable. Then pelvis with contrast revealed no evidence of acute abdominal finding. At this time vital signs stable afebrile. Discharged home in stable condition. Provide starter pack of tramadol. Discussed return precautions with patient who verbalized agreement. Undiagnosed new problem with uncertain prognosis? @ -No Drug Therapy requiring intensive monitoring for toxicity (Heparin, Nitro, Insulin, Cardizem)? @ -No Were any procedures done? @ -No Diagnosis/symptom? @ -Abdominal pain Acute, or Chronic, or Acute on Chronic? @ -Acute Uncomplicated (without systemic symptoms) or Complicated (systemic symptoms)? @ -Uncomplicated Side effects of treatment? @ -No Exacerbation, Progression, or Severe Exacerbation? @ -No Poses a threat to life or bodily function? How? (Chest pain, [place], [place], pneumonia, PE, COPD, DKA, ARF, appy, cholecystitis, CVA, Diverticulitis, Homicidal, Suicidal, threat to staff... and all critical care pts) @ -No - Lab Data Result diagrams: 05/14/23 20:16 05/14/23 20:16 Lab Results 05/14/23 05/14/23 05/14/23 Range/Units 20:16 20:16 20:16 WBC 11.2 H (3.8-10.6) k/uL RBC 5.54 (4.30-5.90) m/uL Hgb 18.0 H (13.0-17.5) gm/dL Hct 51.7 (39.0-53.0) % MCV 93.3 (80.0-100.0) fL MCH 32.5 (25.0-35.0) pg MCHC 34.8 (31.0-37.0) g/dL RDW 13.0 (11.5-15.5) % Plt Count 268 (150-450) k/uL MPV 8.4 Neutrophils % 66 % Lymphocytes % 24 % Monocytes % 5 % Eosinophils % 3 % Basophils % 1 % Neutrophils # 7.4 (1.3-7.7) k/uL Lymphocytes # 2.6 (1.0-4.8) k/uL Monocytes # 0.6 (0-1.0) k/uL Eosinophils # 0.3 (0-0.7) k/uL Basophils # 0.1 (0-0.2) k/uL PT (10.0-12.5) sec INR (<1.2) APTT (22.0-30.0) sec Sodium 138 (137-145) mmol/L Potassium 4.2 (3.5-5.1) mmol/L Chloride 109 H (98-107) mmol/L Carbon Dioxide 20 L (22-30) mmol/L Anion Gap 9 mmol/L BUN 13 (9-20) mg/dL Creatinine 0.81 (0.66-1.25) mg/dL Est GFR (CKD-EPI)AfAm >90 (>60 ml/min/1.73 sqM) Est GFR (CKD-EPI)NonAf >90 (>60 ml/min/1.73 sqM) Glucose 153 H (74-99) mg/dL Plasma Lactic Acid Simon 1.6 (0.7-2.0) mmol/L Calcium 9.1 (8.4-10.2) mg/dL Total Bilirubin 1.5 H (0.2-1.3) mg/dL AST 28 (17-59) U/L ALT 45 (4-49) U/L Alkaline Phosphatase 84 (38-126) U/L Troponin I (0.000-0.034) ng/mL Total Protein 7.1 (6.3-8.2) g/dL Albumin 4.2 (3.5-5.0) g/dL Amylase 52 (30-110) U/L Lipase 135 (23-300) U/L Urine Color Urine Appearance (Clear) Urine pH (5.0-8.0) Ur Specific [place] (1.001-1.035) Urine Protein (Negative) Urine Glucose (UA) (Negative) Urine Ketones (Negative) Urine Blood (Negative) Urine Nitrite (Negative) Urine Bilirubin (Negative) Urine Urobilinogen (<2.0) mg/dL Ur Leukocyte Esterase (Negative) Influenza Type A (PCR) (Not Detectd) Influenza Type B (PCR) (Not Detectd) RSV (PCR) (Not Detectd) SARS-CoV-2 (PCR) (Not Detectd) 05/14/23 05/14/23 05/14/23 Range/Units 21:35 21:35 21:35 WBC (3.8-10.6) k/uL RBC (4.30-5.90) m/uL Hgb (13.0-17.5) gm/dL Hct (39.0-53.0) % MCV (80.0-100.0) fL MCH (25.0-35.0) pg MCHC (31.0-37.0) g/dL RDW (11.5-15.5) % Plt Count (150-450) k/uL MPV Neutrophils % % Lymphocytes % % Monocytes % % Eosinophils % % Basophils % % Neutrophils # (1.3-7.7) k/uL Lymphocytes # (1.0-4.8) k/uL Monocytes # (0-1.0) k/uL Eosinophils # (0-0.7) k/uL Basophils # (0-0.2) k/uL PT 11.2 (10.0-12.5) sec INR 1.0 (<1.2) APTT 24.3 (22.0-30.0) sec Sodium (137-145) mmol/L Potassium (3.5-5.1) mmol/L Chloride (98-107) mmol/L Carbon Dioxide (22-30) mmol/L Anion Gap mmol/L BUN (9-20) mg/dL Creatinine (0.66-1.25) mg/dL Est GFR (CKD-EPI)AfAm (>60 ml/min/1.73 sqM) Est GFR (CKD-EPI)NonAf (>60 ml/min/1.73 sqM) Glucose (74-99) mg/dL Plasma Lactic Acid Simon (0.7-2.0) mmol/L Calcium (8.4-10.2) mg/dL Total Bilirubin (0.2-1.3) mg/dL AST (17-59) U/L ALT (4-49) U/L Alkaline Phosphatase (38-126) U/L Troponin I <0.012 (0.000-0.034) ng/mL Total Protein (6.3-8.2) g/dL Albumin (3.5-5.0) g/dL Amylase (30-110) U/L Lipase (23-300) U/L Urine Color Yellow Urine Appearance Clear (Clear) Urine pH 5.5 (5.0-8.0) Ur Specific [place] 1.040 H (1.001-1.035) Urine Protein Negative (Negative) Urine Glucose (UA) 4+ H (Negative) Urine Ketones Negative (Negative) Urine Blood Negative (Negative) Urine Nitrite Negative (Negative) Urine Bilirubin Negative (Negative) Urine Urobilinogen <2.0 (<2.0) mg/dL Ur Leukocyte Esterase Negative (Negative) Influenza Type A (PCR) (Not Detectd) Influenza Type B (PCR) (Not Detectd) RSV (PCR) (Not Detectd) SARS-CoV-2 (PCR) (Not Detectd) 05/14/23 Range/Units 21:35 WBC (3.8-10.6) k/uL RBC (4.30-5.90) m/uL Hgb (13.0-17.5) gm/dL Hct (39.0-53.0) % MCV (80.0-100.0) fL MCH (25.0-35.0) pg MCHC (31.0-37.0) g/dL RDW (11.5-15.5) % Plt Count (150-450) k/uL MPV Neutrophils % % Lymphocytes % % Monocytes % % Eosinophils % % Basophils % % Neutrophils # (1.3-7.7) k/uL Lymphocytes # (1.0-4.8) k/uL Monocytes # (0-1.0) k/uL Eosinophils # (0-0.7) k/uL Basophils # (0-0.2) k/uL PT (10.0-12.5) sec INR (<1.2) APTT (22.0-30.0) sec Sodium (137-145) mmol/L Potassium (3.5-5.1) mmol/L Chloride (98-107) mmol/L Carbon Dioxide (22-30) mmol/L Anion Gap mmol/L BUN (9-20) mg/dL Creatinine (0.66-1.25) mg/dL Est GFR (CKD-EPI)AfAm (>60 ml/min/1.73 sqM) Est GFR (CKD-EPI)NonAf (>60 ml/min/1.73 sqM) Glucose (74-99) mg/dL Plasma Lactic Acid Simon (0.7-2.0) mmol/L Calcium (8.4-10.2) mg/dL Total Bilirubin (0.2-1.3) mg/dL AST (17-59) U/L ALT (4-49) U/L Alkaline Phosphatase (38-126) U/L Troponin I (0.000-0.034) ng/mL Total Protein (6.3-8.2) g/dL Albumin (3.5-5.0) g/dL Amylase (30-110) U/L Lipase (23-300) U/L Urine Color Urine Appearance (Clear) Urine pH (5.0-8.0) Ur Specific [place] (1.001-1.035) Urine Protein (Negative) Urine Glucose (UA) (Negative) Urine Ketones (Negative) Urine Blood (Negative) Urine Nitrite (Negative) Urine Bilirubin (Negative) Urine Urobilinogen (<2.0) mg/dL Ur Leukocyte Esterase (Negative) Influenza Type A (PCR) Not Detected (Not Detectd) Influenza Type B (PCR) Not Detected (Not Detectd) RSV (PCR) Not Detected (Not Detectd) SARS-CoV-2 (PCR) Not Detected (Not Detectd) Disposition Clinical Impression: Abdominal pain Disposition: HOME SELF-CARE Condition: Good Instructions (If sedation given, give patient instructions): Abdominal Pain (ED) Additional Instructions: Please return to the Emergency Department if symptoms worsen or any other co ncerns. Please follow-up with your primary care provider Is patient prescribed a controlled substance at d/c from ED?: No Referrals: Luis Eduarod Pa MD [Primary Care Provider] - 1-2 days Time of Disposition: 00:39
[2023-05-14 22:19] LABS: Appearance,Urine Clear (Clear); Bilirubin,Urine Negative (Negative); Blood,Urine Negative (Negative); Color,Urine Yellow; Glucose,Urine (UA) 4+ (Negative); Ketones,Urine Negative (Negative); Leukocyte Esterase,Urine Negative (Negative); Nitrite,Urine Negative (Negative); PH, Urine 5.5 (5.0-8.0); Protein,Urine Negative (Negative); Urobilinogen,Urine <2.0 mg/dL (<2.0)
[2023-05-14 22:25] LABS: Partial Thromboplastin Time 24.3 sec (22.0-30.0); Prothrombin Time 11.2 sec (10.0-12.5)
[2023-05-14] MEDS ORDERED: KETOROLAC 15 MG/ML 1 ML VIAL IVP STA (23:48)
[2023-05-15 00:04] VITALS: RESP 16; TEMP 98.8
--- NOTE | 2023-05-15 00:13 | CT ---
EXAM: CT Abdomen and Pelvis With Intravenous Contrast CLINICAL HISTORY: ITS.REASON CT Reason: abdominal pain. umbilical/epigastric TECHNIQUE: Axial computed tomography images of the abdomen and pelvis with intravenous contrast. CTDI is 51.12 mGy and DLP is 2600.4 mGy-cm. This CT exam was performed using one or more of the following dose reduction techniques: automated exposure control, adjustment of the mA and/or kV according to patient size, and/or use of iterative reconstruction technique. COMPARISON: No relevant prior studies available. FINDINGS: Lung bases: Unremarkable. No mass. No consolidation. ABDOMEN: Liver: Hepatic steatosis. Gallbladder and bile ducts: Cholecystectomy. No ductal dilation. Pancreas: Unremarkable. No mass. No ductal dilation. Spleen: Unremarkable. No splenomegaly. Adrenals: Unremarkable. No mass. Kidneys and ureters: Unremarkable. No solid mass. No hydronephrosis. Stomach and bowel: Diverticulosis, without acute diverticulitis. No bowel obstruction. PELVIS: Appendix: No acute appendicitis. Normal appendix. Bladder: Unremarkable. No mass. Reproductive: Unremarkable as visualized. ABDOMEN and PELVIS: Intraperitoneal space: Unremarkable. No free air. No significant fluid collection. Bones/joints: No acute fracture. No dislocation. Soft tissues: Small fat-containing LEFT inguinal hernia. Vasculature: Unremarkable. No abdominal aortic aneurysm. Lymph nodes: Unremarkable. No enlarged lymph nodes. IMPRESSION: No acute findings in the abdomen or pelvis.
[2023-05-15] MEDS ORDERED: traMADol 50 MG STARTER PACK 3 TAB BTL PO STA (00:35)
[2023-05-15 01:19] VITALS: BP 125/80; PULSE 87
== END 2023-05-15 00:59 | disposition home or self-care (01) ==
LOC: EC 19:24
DX: R10.13 Epigastric pain (principal); R10.33 Periumbilical pain; I10 Essential (primary) hypertension; F41.9 Anxiety disorder, unspecified; Z20.822 Contact with and (suspected) exposure to COVID-19; Z79.899 Other long term (current) drug therapy; Z90.49 Acquired absence of other specified parts of digestive tract
CPT/HCPCS: 36415; 80053; 82150; 83605; 83690; 84484; 85025; 85610; 85730; 81003; 87636; 74018; 74177; 99285; 96374; 96375; 96361; J2270; J1885; Q9967

== ENCOUNTER 2023-11-15 15:29 | Inpatient (IN) | payer BC ==
[2023-11-15 16:14] LABS: ALT 29 U/L (4-49); AST 29 U/L (17-59); African American GFR (CKD) >90 (>60 ml/min/1.73 sqM); Alkaline Phosphatase 67 U/L (38-126); Amylase 43 U/L (30-110); Anion Gap 12 mmol/L; Blood Urea Nitrogen 20 mg/dL (9-20); Calcium 9.6 mg/dL (8.4-10.2); Carbon Dioxide 18 mmol/L (22-30); Chloride 104 mmol/L (98-107); Glucose 164 mg/dL (74-99); Lipase 70 U/L (23-300); Non-African American GFR(CKD) >90 (>60 ml/min/1.73 sqM); Sodium 134 mmol/L (137-145); Total Bilirubin 3.6 mg/dL (0.2-1.3); Total Protein 7.8 g/dL (6.3-8.2)
[2023-11-15 16:16] LABS: INR 1.1 (<1.2); Partial Thromboplastin Time 27.2 sec (22.0-30.0); Prothrombin Time 11.8 sec (10.0-12.5)
--- NOTE | 2023-11-15 16:19 | ED ---
Abdominal Pain HPI - General Chief Complaint: Abdominal Pain Stated Complaint: Bowel Obstruction-Sent by Dr Llamas Seen by Provider: 11/15/23 15:41 Source: patient, family Mode of arrival: ambulatory Limitations: no limitations - History of Present Illness Initial Comments: This is a 43-year-old male who presents emergency department with referral from his primary care provider for chief complaint of a possible bowel obstruction or ileus. Patient was evaluated by his primary care provider, Dr. Pa, complaint of left lower quadrant abdominal pain over the past 24 hours. Patient states that he has been feeling nauseous and chilled with no reported fevers or episodes of emesis. CT scan ordered outpatient concerning for possible bowel obstruction or ileus. Patient has had multiple surgeries on his abdomen including pyloric stenosis as a pediatric patient, multiple surgical repairs, cholecystectomy. He denies chest pain, shortness of breath, difficulty breathing, headaches. Denies urinary symptoms. denies history of diverticulitis, diverticulosis, bowel obstructions. - Related Data Home Medications Medication Instructions Recorded Confirmed Bisoprolol-Hctz 10-6.25 mg [Ziac 1 tab PO DAILY 11/06/17 06/30/20 10-6.25] Ibuprofen [Motrin Ib] 600 - 800 mg PO Q6H PRN 06/11/18 06/30/20 ALPRAZolam [Xanax] 0.5 mg PO DAILY PRN 11/21/18 06/30/20 Ertugliflozin Pidolate [Steglatro] 5 mg PO DAILY 06/27/20 06/30/20 metFORMIN HCL [Glucophage] 500 mg PO BID 06/27/20 06/30/20 Allergies Allergy/AdvReac Type Severity Reaction Status Date / Time No Known Allergies Allergy Verified 05/14/23 19:37 Review of Systems ROS Statement: Those systems with pertinent positive or pertinent negative responses have been documented in the HPI. ROS Other: All systems not noted in ROS Statement are negative. Past Medical History Past Medical History: Diabetes Mellitus, GERD/Reflux, Hypertension, Sleep Apnea/CPAP/BIPAP Additional Past Medical History / Comment(s): IBS, no cpap used, hiatal hernia, kidney stones History of Any Multi-Drug Resistant Organisms: None Reported Past Surgical History: Cholecystectomy, Hernia Repair, Orthopedic Surgery Additional Past Surgical History / Comment(s): arthroscopy rt knee surgery x6, arthroscopy left knee surgery x 1, umbilical hernia repair x 3, incisional hernia surgery, surgery as infant for pyloric stenosis, colonoscopy with multiple biopsies which showed a tubular adenoma in the rectum-09/2017 Past Anesthesia/Blood Transfusion Reactions: No Reported Reaction Past Psychological History: Anxiety, Depression Smoking Status: Current every day smoker Past Alcohol Use History: Occasional Past Drug Use History: None Reported - Past Family History Mother Family Medical History: No Reported History Additional Family Medical History / Comment(s): A maternal uncle and grandfather has Ashwin's disease General Exam Limitations: no limitations General appearance: alert, in no apparent distress Head exam: Present: atraumatic, normocephalic, normal inspection Eye exam: Present: normal appearance, PERRL, EOMI. Absent: scleral icterus, conjunctival injection, periorbital swelling ENT exam: Present: normal exam, mucous membranes moist Neck exam: Present: normal inspection. Absent: tenderness, meningismus, lymphadenopathy Respiratory exam: Present: normal lung sounds bilaterally. Absent: respiratory distress, wheezes, rales, rhonchi, stridor Cardiovascular Exam: Present: regular rate, normal rhythm, normal heart sounds. Absent: systolic murmur, diastolic murmur, rubs, gallop, clicks GI/Abdominal exam: Present: soft, tenderness (LLQ), rebound. Absent: distended, guarding, rigid Extremities exam: Present: normal inspection, full ROM, normal capillary refill. Absent: tenderness, pedal edema, joint swelling, calf tenderness Back exam: Present: normal inspection Neurological exam: Present: alert, oriented X3, CN II-XII intact Psychiatric exam: Present: normal affect, normal mood Skin exam: Present: warm, dry, intact, normal color. Absent: rash Course Vital Signs 11/15/23 15:36 Temperature 98.7 F Pulse Rate 122 H Respiratory 20 Rate Blood Pressure 154/96 O2 Sat by Pulse 98 Oximetry Medical Decision Making - Medical Decision Making Was pt. sent in by a medical professional or institution (, PA, [employer], urgent care, hospital, or fdc...) When possible be specific @ -Was referred by his primary care provider to report to the emergency department for concern of small bowel obstruction or potential ileus. Did you speak to anyone other than the patient for history (EMS, parent, family, police, friend...)? What history was obtained from this source @ -No Did you review nursing and triage notes (agree or disagree)? Why? @ -I reviewed and agree with nursing and triage notes Were old charts reviewed (outside hosp., previous admission, EMS record, old EKG, old radiological studies, urgent care reports/EKG's, fdc records)? Report findings @ -CT of the abdomen and pelvis with contrast completed on 11/15/2023 reveals dilation of multiple loops of the small bowel without definitive transition, potential for ileus versus small bowel obstruction Differential Diagnosis (chest pain, altered mental status, abdominal pain women, abdominal pain men, vaginal bleeding, weakness, fever, dyspnea, syncope, headache, dizziness, GI bleed, back pain, seizure, CVA, palpatations, mental health, musculoskeletal)? @ -Differential Abdominal Pain Men: Appendicitis, cholecystitis, diverticulosis, ischemic bowel, pancreatitis, hepatitis, UTI, gastroenteritis, AAA, incarcerated hernia, bowel obstruction, constipation, inflammatory bowel, hepatitis, peptic ulcer disease, splenic infarction, perforated viscus, testicular torsion, this is not meant to be an all-inclusive list EKG interpreted by me (3pts min.). @ -completed at 1607, sinus tachycardia with a ventricular rate of 127, MN interval 142, QTc 410. No acute signs of ischemia. X-rays interpreted by me (1pt min.). @ -None done CT interpreted by me (1pt min.). @ -None done U/S interpreted by me (1pt. min.). @ -None done What testing was considered but not performed or refused? (CT, X-rays, U/S, labs)? Why? @ -None What meds were considered but not given or refused? Why? @ -None Did you discuss the management of the patient with other professionals (professionals i.e. , PA, [employer] DEV[employer], lab, RT, psych nurse, social human services assistants, machine shop inspector, teacher, liaison officer, case planner)? Give summary @ -Spoke with the patient's primary care provider, Dr. Pa, in relation to the patient's case. He is excepted for admission with consult to general surgery for further evaluation of potential ileus versus small bowel obstruction. Was smoking cessation discussed for >3mins.? @ -No Was critical care preformed (if so, how long)? @ -No Were there social determinants of health that impacted care today? How? (Homelessness, low income, unemployed, alcoholism, drug addiction, transportation, low edu. Level, literacy, decrease access to med. care, care home, rehab)? @ -No Was there de-escalation of care discussed even if they declined (Discuss DNR or withdrawal of care, Hospice)? DNR status @ -No What co-morbidities impacted this encounter? (DM, HTN, Smoking, COPD, CAD, Cancer, CVA, ARF, Chemo, Hep., AIDS, mental health diagnosis, sleep apnea, morbid obesity)? @ -None Was patient admitted / discharged? Hospital course, mention meds given and route, prescriptions, significant lab abnormalities, going to OR and other pertinent info. @ -Admitted. 43-year-old male with left lower quadrant abdominal pain. On examination patient is noted to be in sinus tachycardia. Abdomen is soft with left lower quadrant tenderness and rebound tenderness of the right lower quadrant. Patient is symptomatically treated with fluids, Zofran, pain medications pending laboratory results. Labs reveal an elevated hemoglobin of 20.4 and hematocrit 55.4 which is likely secondary to dehydration. Mild leukocy tosis of 11.2. Troponin nonelevated less than 0.012. CMP grossly unremarkable. Patient is admitted to internal medicine with general surgery on consult for further evaluation. He is placed on n.p.o. diet and is provided with as needed pain medications and continued fluids. Discussed with Dr. Marte Undiagnosed new problem with uncertain prognosis? @ -No Drug Therapy requiring intensive monitoring for toxicity (Heparin, Nitro, Insulin, Cardizem)? @ -No Were any procedures done? @ -No Diagnosis/symptom? @ -ileus vs small bowel obstruction, left lower quadrant abdominal pain, diar doug Acute, or Chronic, or Acute on Chronic? @ -Acute Uncomplicated (without systemic symptoms) or Complicated (systemic symptoms)? @ -complicated Side effects of treatment? @ -No Exacerbation, Progression, or Severe Exacerbation? @ -No Poses a threat to life or bodily function? How? (Chest pain, [place], [place], pneumonia, PE, COPD, DKA, ARF, appy, cholecystitis, CVA, Diverticulitis, Homicidal, Suicidal, threat to staff... and all critical care pts) @ -No - Lab Data Result diagrams: 11/15/23 15:40 11/15/23 15:40 Lab Results 11/15/23 11/15/23 11/15/23 Range/Units 15:40 15:40 15:40 WBC 11.2 H (3.8-10.6) k/uL RBC 5.87 (4.30-5.90) m/uL Hgb 20.4 H* (13.0-17.5) gm/dL Hct 55.4 H (39.0-53.0) % MCV 94.3 (80.0-100.0) fL MCH 34.7 (25.0-35.0) pg MCHC 36.8 (31.0-37.0) g/dL RDW 13.6 (11.5-15.5) % Plt Count 241 (150-450) k/uL MPV 8.4 Neutrophils % 87 % Lymphocytes % 6 % Monocytes % 5 % Eosinophils % 1 % Basophils % 0 % Neutrophils # 9.7 H (1.3-7.7) k/uL Lymphocytes # 0.7 L (1.0-4.8) k/uL Monocytes # 0.6 (0-1.0) k/uL Eosinophils # 0.1 (0-0.7) k/uL Basophils # 0.0 (0-0.2) k/uL PT 11.8 (10.0-12.5) sec INR 1.1 (<1.2) APTT 27.2 (22.0-30.0) sec Sodium 134 L (137-145) mmol/L Potassium 4.0 (3.5-5.1) mmol/L Chloride 104 (98-107) mmol/L Carbon Dioxide 18 L (22-30) mmol/L Anion Gap 12 mmol/L BUN 20 (9-20) mg/dL Creatinine 0.93 (0.66-1.25) mg/dL Est GFR (CKD-EPI)AfAm >90 (>60 ml/min/1.73 sqM) Est GFR (CKD-EPI)NonAf >90 (>60 ml/min/1.73 sqM) Glucose 164 H (74-99) mg/dL Plasma Lactic Acid Simon (0.7-2.0) mmol/L Calcium 9.6 (8.4-10.2) mg/dL Total Bilirubin 3.6 H (0.2-1.3) mg/dL AST 29 (17-59) U/L ALT 29 (4-49) U/L Alkaline Phosphatase 67 (38-126) U/L Troponin I (0.000-0.034) ng/mL Total Protein 7.8 (6.3-8.2) g/dL Albumin 5.0 (3.5-5.0) g/dL Amylase 43 (30-110) U/L Lipase 70 (23-300) U/L 11/15/23 11/15/23 Range/Units 15:40 15:40 WBC (3.8-10.6) k/uL RBC (4.30-5.90) m/uL Hgb (13.0-17.5) gm/dL Hct (39.0-53.0) % MCV (80.0-100.0) fL MCH (25.0-35.0) pg MCHC (31.0-37.0) g/dL RDW (11.5-15.5) % Plt Count (150-450) k/uL MPV Neutrophils % % Lymphocytes % % Monocytes % % Eosinophils % % Basophils % % Neutrophils # (1.3-7.7) k/uL Lymphocytes # (1.0-4.8) k/uL Monocytes # (0-1.0) k/uL Eosinophils # (0-0.7) k/uL Basophils # (0-0.2) k/uL PT (10.0-12.5) sec INR (<1.2) APTT (22.0-30.0) sec Sodium (137-145) mmol/L Potassium (3.5-5.1) mmol/L Chloride (98-107) mmol/L Carbon Dioxide (22-30) mmol/L Anion Gap mmol/L BUN (9-20) mg/dL Creatinine (0.66-1.25) mg/dL Est GFR (CKD-EPI)AfAm (>60 ml/min/1.73 sqM) Est GFR (CKD-EPI)NonAf (>60 ml/min/1.73 sqM) Glucose (74-99) mg/dL Plasma Lactic Acid Simon 1.2 (0.7-2.0) mmol/L Calcium (8.4-10.2) mg/dL Total Bilirubin (0.2-1.3) mg/dL AST (17-59) U/L ALT (4-49) U/L Alkaline Phosphatase (38-126) U/L Troponin I <0.012 (0.000-0.034) ng/mL Total Protein (6.3-8.2) g/dL Albumin (3.5-5.0) g/dL Amylase (30-110) U/L Lipase (23-300) U/L Disposition Clinical Impression: Ileus, Abdominal pain, Diarrhea Disposition: ADMITTED IP TO THIS [facility] Condition: Poor Decision to Admit Reason: Admit from EC Decision Date: 11/15/23 Decision Time: 17:21
[2023-11-15 16:28] LABS: Basophils % (A) 0 %; Eosinophils # (A) 0.1 k/uL (0-0.7); Eosinophils % (A) 1 %; Lymphocytes # (A) 0.7 k/uL (1.0-4.8); Lymphocytes % (A) 6 %; MCH 34.7 pg (25.0-35.0); MCHC 36.8 g/dL (31.0-37.0); MCV 94.3 fL (80.0-100.0); Mean Platelet Volume 8.4; Monocytes # (A) 0.6 k/uL (0-1.0); Monocytes % (A) 5 %; Neutrophils # (A) 9.7 k/uL (1.3-7.7); Neutrophils % (A) 87 %; Platelet Count 241 k/uL (150-450); RBC 5.87 m/uL (4.30-5.90); RDW 13.6 % (11.5-15.5); WBC 11.2 k/uL (3.8-10.6)
[2023-11-15 16:35] LABS: HCT 55.4 % (39.0-53.0)
[2023-11-15 16:49] LABS: HGB 20.4 gm/dL (13.0-17.5)
[2023-11-15] MEDS: ONDANSETRON 4 MG/2 ML VIAL IVP STA (17:03)
[2023-11-15] MEDS: HYDROmorphone 0.5 MG/0.5 ML SYRINGE IVP STA (17:04)
[2023-11-15] MEDS: SODIUM CHLORIDE 0.9% 1,000 ML IV STA (17:04)
[2023-11-15] MEDS ORDERED: NALOXONE 0.4 MG/ML 1 ML VIAL IV PRN (17:19)
[2023-11-15] MEDS: SODIUM CHLORIDE 0.9% 1,000 ML IV SCH (19:25)
[2023-11-15] MEDS: HYDROmorphone 0.5 MG/0.5 ML SYRINGE IVP PRN (19:25)
[2023-11-15] MEDS: ONDANSETRON 4 MG/2 ML VIAL IVP PRN (19:41)
[2023-11-15] MEDS ORDERED: DEXTROSE 50% SYRINGE 50 ML IVP PRN ×2 (21:16)
--- NOTE | 2023-11-15 21:20 | P.HPIM ---
History of Present Illness H&P Date: 11/15/23 Chief Complaint: Left lower quadrant abdominal pain This is a history and physical a 43-year-old white male with known history of diabetes who was recently on vacation and came back having significant left lower quadrant abdominal pain and diarrhea as noted. CT scan showed partial small bowel obstruction/ileus. He is now admitted for appropriate observation and treatment. He states he was drinking excessively on vacation mode. No recent surgeries intra-abdominal he stated. No fever but chills were noted. Poor appetite and he saw me for treatment this afternoon. Review of Systems Constitutional: Denies chills, Denies fever Eyes: denies blurred vision, denies pain Ears, nose, mouth and throat: Denies headache, Denies sore throat Cardiovascular: Denies chest pain, Denies shortness of breath Respiratory: Denies cough Gastrointestinal: Reports as per HPI, Reports abdominal pain, Reports diarrhea Musculoskeletal: Denies myalgias Past Medical History Past Medical History: Diabetes Mellitus, GERD/Reflux, Hypertension, Sleep Apnea/CPAP/BIPAP Additional Past Medical History / Comment(s): IBS, no cpap used, hiatal hernia, kidney stones History of Any Multi-Drug Resistant Organisms: None Reported Past Surgical History: Cholecystectomy, Hernia Repair, Orthopedic Surgery Additional Past Surgical History / Comment(s): arthroscopy rt knee surgery x6, arthroscopy left knee surgery x 1, umbilical hernia repair x 3, incisional hernia surgery, surgery as infant for pyloric stenosis, colonoscopy with multiple biopsies which showed a tubular adenoma in the rectum-09/2017 Past Anesthesia/Blood Transfusion Reactions: No Reported Reaction Past Psychological History: Anxiety, Depression Smoking Status: Current every day smoker Past Alcohol Use History: Occasional Past Drug Use History: None Reported - Past Family History Mother Family Medical History: No Reported History Additional Family Medical History / Comment(s): A maternal uncle and grandfather has Harrold's disease Medications and Allergies Home Medications Medication Instructions Recorded Confirmed Type Bisoprolol-Hctz 10-6.25 mg [Ziac 1 tab PO DAILY 11/06/17 11/15/23 History 10-6.25] Empagliflozin [Jardiance] 25 mg PO DAILY 11/15/23 11/15/23 History Tirzepatide [Mounjaro] 10 mg SQ GEE 11/15/23 11/15/23 History Allergies Allergy/AdvReac Type Severity Reaction Status Date / Time No Known Allergies Allergy Verified 11/15/23 18:06 Physical Exam Vitals: Vital Signs Temp Pulse Pulse Resp BP BP Pulse Ox 11/15/23 20:59 98.6 F 111 H 16 146/99 96 11/15/23 20:45 18 11/15/23 20:30 106 H 18 143/84 99 11/15/23 15:36 98.7 F 122 H 20 154/96 98 Intake and Output 11/15/23 11/15/23 11/15/23 06:59 14:59 22:59 Other: Weight 131.542 kg Results CBC & Chem 7: 11/15/23 15:40 11/15/23 15:40 Labs: Abnormal Lab Results - Last 24 Hours (Table) 11/15/23 11/15/23 Range/Units 15:40 15:40 WBC 11.2 H (3.8-10.6) k/uL Hgb 20.4 H* (13.0-17.5) gm/dL Hct 55.4 H (39.0-53.0) % Neutrophils # 9.7 H (1.3-7.7) k/uL Lymphocytes # 0.7 L (1.0-4.8) k/uL Sodium 134 L (137-145) mmol/L Carbon Dioxide 18 L (22-30) mmol/L Glucose 164 H (74-99) mg/dL Total Bilirubin 3.6 H (0.2-1.3) mg/dL Assessment and Plan (1) Hypertension Current Visit: Yes Status: Acute Code(s): I10 - ESSENTIAL (PRIMARY) HYPERTENSION SNOMED Code(s): 76520651 (2) Diabetes Current Visit: Yes Status: Acute Code(s): E11.9 - TYPE 2 DIABETES MELLITUS WITHOUT COMPLICATIONS SNOMED Code(s): 80691952 (3) Abdominal pain Current Visit: Yes Status: Acute Code(s): R10.9 - UNSPECIFIED ABDOMINAL PAIN SNOMED Code(s): 19536394 (4) Diarrhea Current Visit: Yes Status: Acute Code(s): R19.7 - DIARRHEA, UNSPECIFIED SNOMED Code(s): 39131996 (5) Ileus Current Visit: Yes Status: Acute Code(s): K56.7 - ILEUS, UNSPECIFIED SNOMED Code(s): 562455962 Plan: N.p.o. except ice chips. Placed on sliding scale. Check CBC and CMP in AM. Polycythemia most likely related to fluid contraction. Elevated bilirubin most likely related to ethanol use from vacation. Consult surgery. GI prophylaxis otherwise. [facility] will be covering in the a.m. Time with Patient: Greater than 30
[2023-11-15] MEDS: PANTOPRAZOLE 40 MG/10 ML VIAL IVP SCH (23:06)
[2023-11-15 23:31] LABS: Bilirubin,Unconjugated 2.5 mg/dL (0.0-1.1); Total Bilirubin 2.9 mg/dL (0.2-1.3)
[2023-11-16 03:47] LABS: Glucose,Whole Blood 110 mg/dL (70-110)
[2023-11-16 09:07] LABS: Glucose,Whole Blood 106 mg/dL (70-110)
[2023-11-16 10:35] LABS: Basophils # (A) 0.04 X 10*3/uL (0.00-0.10); Basophils % (A) 0.5 %; Eosinophils # (A) 0.21 X 10*3/uL (0.04-0.35); Eosinophils % (A) 2.4 %; HCT 51.5 % (39.6-50.0); HGB 18.2 g/dL (13.0-17.0); Lymphocytes % (A) 19.6 %; MCH 32.3 pg (27.0-32.0); MCHC 35.3 g/dL (32.0-37.0); MCV 91.3 FL (80.0-97.0); Mean Platelet Volume 10.3 FL (9.5-12.2); Monocytes # (A) 1.17 X 10*3/uL (0.20-1.00); Monocytes % (A) 13.5 %; NRBC Per 100 WBC 0 X 10*3/uL (0.00-0.01); Neutrophils # (A) 5.51 X 10*3/uL (1.80-7.70); Neutrophils % (A) 63.5 %; Platelet Count 206 X 10*3/uL (140-440); RBC 5.64 X 10*6/uL (4.40-5.60); RDW 13.5 % (11.5-14.5); WBC 8.67 X 10*3/uL (4.50-10.00)
[2023-11-16 10:52] LABS: ALT 22 U/L (10-49); AST 20 U/L (14-35); Albumin 4.3 g/dL (3.8-4.9); Albumin/Globulin Ratio 1.87 Ratio (1.60-3.17); Alkaline Phosphatase 71 U/L (41-126); Blood Urea Nitrogen 15.3 mg/dL (9.0-27.0); Calcium 8.7 mg/dL (8.7-10.3); Carbon Dioxide 20.1 mmol/L (21.6-31.8); Chloride 105 mmol/L (96-109); Globulin 2.3 g/dL (1.6-3.3); Glucose 121 mg/dL (70-110); Potassium 4.1 mmol/L (3.5-5.5); Sodium 138 mmol/L (135-145); Total Bilirubin 2.2 mg/dL (0.3-1.2); Total Protein 6.6 g/dL (6.2-8.2)
[2023-11-16 12:01] LABS: Glucose,Whole Blood 134 mg/dL (70-110)
--- NOTE | 2023-11-16 13:35 | PN ---
PROGRESS NOTE DATE OF SERVICE: 11/16/2023 SUBJECTIVE: This 43-year-old gentleman was admitted with left lower quadrant abdominal pain, is suspected to have ileus and the recent CAT scan showed dilated small bowels. The patient recently got from vacation and had some diarrhea. OBJECTIVE: VITAL SIGNS: Pulse is 88, blood pressure 130/90, respirations 20. HEENT: Conjunctivae normal. CARDIOVASCULAR: S1, S2. RESPIRATIONS: Diminished breath sounds. ABDOMEN: Soft, minimal discomfort. LABORATORY DATA: Reviewed. ASSESSMENT: 1. Abdominal pain with possible ileus. 2. Acute diarrheal disease. 3. Hypertension. 4. Diabetes mellitus type 2. RECOMMENDATIONS: Recommended to continue current management, continue symptomatic treatment. Otherwise, advance diet per surgery. C difficile has been requested. Resume the home medications. Further recommendations to follow. MMODL / IJN: [id number] /
[2023-11-16] MEDS: HEPARIN SODIUM,PORCINE 5,000 UNIT/ML 1 ML VIAL SQ SCH (14:33)
--- NOTE | 2023-11-16 16:12 | P.GSCN ---
History of Present Illness Consult date: 11/16/23 History of present illness: CHIEF COMPLAINT: Abdominal pain HISTORY OF PRESENT ILLNESS: This is a 43-year-old male who presented the hospital with left lower quadrant abdominal pain. Patient had recently been on vacation and reports that he had been drinking excessively. He also reports eating a variety of different foods on vacation while out of the country. Aliya ent had a outpatient CT scan with concerns of ileus versus small bowel obstruction. Patient came into the ER for further evaluation. Patient is having flatus. He denies any nausea or vomiting. Patient does have prior history of abdominal surgeries which include 3 umbilical hernia repairs and inc isional hernia repair, cholecystectomy and pyloric stenosis surgery as a child. Patient denies any fever chills or sweats. Patient seen and examined with Dr. Salcedo PAST MEDICAL HISTORY: diabetes Mellitus, GERD/Reflux, Hypertension, Sleep Apnea/CPAP/BIPAP, tubular adenoma of the rectum PAST SURGICAL HISTORY: Cholecystectomy, Hernia Repair, Orthopedic Surgery, arthroscopy rt knee surgery x6, arthroscopy left knee surgery x 1, umbilical hernia repair x 3, incisional hernia surgery, surgery as for pyloric stenosis, colonoscopy with multiple biopsies which showed MEDICATIONS: See below ALLERGIES: See below SOCIAL HISTORY: No illicit drug use. REVIEW OF SYSTEMS: CONSTITUTIONAL: Denies fever or chills. HEENT: Denies blurred vision, vision changes, or eye pain. Denies hemoptysis CARDIOVASCULAR: Denies chest pain or pressure. RESPIRATORY: No shortness of breath. GASTROINTESTINAL: See HPI for pertinent findings HEMATOLOGIC: Denies bleeding disorders. GENITOURINARY: Denies any blood in urine or increased urinary frequency. SKIN: Denies pruitis. Denies rash. PHYSICAL EXAM: VITAL SIGNS: Reviewed GENERAL: Well-developed in no acute distress. HEENT: No sclera icterus. Extraocular movements grossly intact. Moist buccal mucosa. Head is atraumatic, normocephalic. No nasal drainage. ABDOMEN: Soft. Nondistended. Tenderness left lower quadrant NEUROLOGIC: Alert and oriented. Cranial nerves II through XII grossly intact. LABORATORY DATA: WBC 11.2 down to 8.67 Hgb 18.2 platelets 206 Sodium 138 potassium 4.1 creatinine 0.9 Total bilirubin 2.9 down to 2.2 LFTs normal lipase 70 IMAGING: CT scan abdomen pelvis reports dilation of multiple loops of small bowel throughout the abdomen without definitive transition point correlate for ileus versus small bowel obstruction. Hepatic steatosis. No evidence for acute lower quadrant process. ASSESSMENT: 1. Abdominal pain. Possible gastroenteritis. Patient does not appear to have evidence of bowel obstruction. He is having flatus. 2. Possible ileus PLAN: -No surgical intervention planned -Start clear liquid diet -Continue to monitor Physician [employer] note has been reviewed by physician. Signing provider agrees with the documented findings, assessment, and plan of care. Past Medical History Past Medical History: Diabetes Mellitus, GERD/Reflux, Hypertension, Sleep Apnea/CPAP/BIPAP Additional Past Medical History / Comment(s): IBS, no cpap used, hiatal hernia, kidney stones History of Any Multi-Drug Resistant Organisms: None Reported Past Surgical History: Cholecystectomy, Hernia Repair, Orthopedic Surgery Additional Past Surgical History / Comment(s): arthroscopy rt knee surgery x6, arthroscopy left knee surgery x 1, umbilical hernia repair x 3, incisional hernia surgery, surgery as for pyloric stenosis, colonoscopy with multiple biopsies which showed a tubular adenoma in the rectum-09/2017 Past Anesthesia/Blood Transfusion Reactions: No Reported Reaction Past Psychological History: Anxiety, Depression Smoking Status: Current every day smoker Past Alcohol Use History: Occasional Additional Past Alcohol Use History / Comment(s): smokes 5-10 ciagarettes daily, has smoked for 20 yrs Past Drug Use History: None Reported - Past Family History Mother Family Medical History: Hypertension Additional Family Medical History / Comment(s): Mother had Chrons disease, a maternal uncle and grandfather has Nez Perce's disease Medications and Allergies Home Medications Medication Instructions Recorded Confirmed Type Bisoprolol-Hctz 10-6.25 mg [Ziac 1 tab PO DAILY 11/06/17 11/15/23 History 10-6.25] Empagliflozin [Jardiance] 25 mg PO DAILY 11/15/23 11/15/23 History Tirzepatide [Mounjaro] 10 mg SQ GEE 11/15/23 11/15/23 History Allergies Allergy/AdvReac Type Severity Reaction Status Date / Time No Known Allergies Allergy Verified 11/15/23 18:06 Surgical - Exam Vital Signs Temp Pulse Resp BP Pulse Ox 98.7 F 122 H 20 154/96 98 11/15/23 15:36 11/15/23 15:36 11/15/23 15:36 11/15/23 15:36 11/15/23 15:36 Results - Labs 11/16/23 05:58 11/16/23 05:58 Abnormal Lab Results - Last 24 Hours (Table) 11/15/23 11/15/23 11/15/23 Range/Units 15:40 15:40 22:54 WBC 11.2 H (3.8-10.6) k/uL RBC (4.40-5.60) X 10*6/uL Hgb 20.4 H* (13.0-17.5) gm/dL Hct 55.4 H (39.0-53.0) % MCH (27.0-32.0) pg Neutrophils # 9.7 H (1.3-7.7) k/uL Lymphocytes # 0.7 L (1.0-4.8) k/uL Monocytes # (0.20-1.00) X 10*3/uL Sodium 134 L (137-145) mmol/L Carbon Dioxide 18 L (22-30) mmol/L Anion Gap (4.00-12.00) mmol/L Glucose 164 H (74-99) mg/dL POC Glucose (mg/dL) (70-110) mg/dL Total Bilirubin 3.6 H 2.9 H (0.2-1.3) mg/dL Unconjugated Bilirubin 2.5 H (0.0-1.1) mg/dL 11/16/23 11/16/23 11/16/23 Range/Units 05:58 05:58 12:00 WBC (3.8-10.6) k/uL RBC 5.64 H (4.40-5.60) X 10*6/uL Hgb 18.2 H (13.0-17.5) gm/dL Hct 51.5 H (39.0-53.0) % MCH 32.3 H (27.0-32.0) pg Neutrophils # (1.3-7.7) k/uL Lymphocytes # (1.0-4.8) k/uL Monocytes # 1.17 H (0.20-1.00) X 10*3/uL Sodium (137-145) mmol/L Carbon Dioxide 20.1 L (22-30) mmol/L Anion Gap 12.90 H (4.00-12.00) mmol/L Glucose 121 H (74-99) mg/dL POC Glucose (mg/dL) 134 H (70-110) mg/dL Total Bilirubin 2.2 H (0.2-1.3) mg/dL Unconjugated Bilirubin (0.0-1.1) mg/dL Diabetes panel 11/15/23 11/16/23 11/16/23 Range/Units 15:40 05:58 05:58 Sodium 134 L 138 (137-145) mmol/L Potassium 4.0 4.1 (3.5-5.1) mmol/L Chloride 104 105 (98-107) mmol/L Carbon Dioxide 18 L 20.1 L (22-30) mmol/L BUN 20 15.3 (9-20) mg/dL Creatinine 0.93 0.9 (0.66-1.25) mg/dL Glucose 164 H 121 H (74-99) mg/dL Hemoglobin A1c 5.7 (<=6.0) % Calcium 9.6 8.7 (8.4-10.2) mg/dL AST 29 20 (17-59) U/L ALT 29 22 (4-49) U/L Alkaline Phosphatase 67 71 (38-126) U/L Total Protein 7.8 6.6 (6.3-8.2) g/dL Albumin 5.0 4.3 (3.5-5.0) g/dL Calcium panel 11/15/23 11/16/23 Range/Units 15:40 05:58 Calcium 9.6 8.7 (8.4-10.2) mg/dL Albumin 5.0 4.3 (3.5-5.0) g/dL Pituitary panel 11/15/23 11/16/23 Range/Units 15:40 05:58 Sodium 134 L 138 (137-145) mmol/L Potassium 4.0 4.1 (3.5-5.1) mmol/L Chloride 104 105 (98-107) mmol/L Carbon Dioxide 18 L 20.1 L (22-30) mmol/L BUN 20 15.3 (9-20) mg/dL Creatinine 0.93 0.9 (0.66-1.25) mg/dL Glucose 164 H 121 H (74-99) mg/dL Calcium 9.6 8.7 (8.4-10.2) mg/dL Adrenal panel 11/15/23 11/15/23 11/16/23 Range/Units 15:40 22:54 05:58 Sodium 134 L 138 (137-145) mmol/L Potassium 4.0 4.1 (3.5-5.1) mmol/L Chloride 104 105 (98-107) mmol/L Carbon Dioxide 18 L 20.1 L (22-30) mmol/L BUN 20 15.3 (9-20) mg/dL Creatinine 0.93 0.9 (0.66-1.25) mg/dL Glucose 164 H 121 H (74-99) mg/dL Calcium 9.6 8.7 (8.4-10.2) mg/dL Total Bilirubin 3.6 H 2.9 H 2.2 H (0.2-1.3) mg/dL AST 29 20 (17-59) U/L ALT 29 22 (4-49) U/L Alkaline Phosphatase 67 71 (38-126) U/L Total Protein 7.8 6.6 (6.3-8.2) g/dL Albumin 5.0 4.3 (3.5-5.0) g/dL
[2023-11-16 17:07] LABS: Glucose,Whole Blood 156 mg/dL (70-110)
[2023-11-16 20:09] LABS: Glucose,Whole Blood 134 mg/dL (70-110)
[2023-11-17 07:03] LABS: Glucose,Whole Blood 120 mg/dL (70-110)
[2023-11-17] MEDS: DAPAGLIFLOZIN PROPANEDIOL 10 MG TABLET PO SCH (09:14)
[2023-11-17] MEDS: BISOPROLOL-HCTZ 10-6.25 MG 1 EACH TAB PO SCH (09:14)
[2023-11-17 10:40] LABS: Basophils # (A) 0.03 X 10*3/uL (0.00-0.10); Basophils % (A) 0.4 %; Eosinophils # (A) 0.25 X 10*3/uL (0.04-0.35); Eosinophils % (A) 3.1 %; HCT 44.9 % (39.6-50.0); HGB 16.2 g/dL (13.0-17.0); Lymphocytes # (A) 1.91 X 10*3/uL (0.90-5.00); Lymphocytes % (A) 23.8 %; MCH 32.9 pg (27.0-32.0); MCHC 36.1 g/dL (32.0-37.0); MCV 91.1 FL (80.0-97.0); Mean Platelet Volume 10.8 FL (9.5-12.2); Monocytes # (A) 0.97 X 10*3/uL (0.20-1.00); Monocytes % (A) 12.1 %; NRBC Per 100 WBC 0 X 10*3/uL (0.00-0.01); Neutrophils # (A) 4.84 X 10*3/uL (1.80-7.70); Neutrophils % (A) 60.4 %; Platelet Count 191 X 10*3/uL (140-440); RBC 4.93 X 10*6/uL (4.40-5.60); RDW 13.2 % (11.5-14.5); WBC 8.02 X 10*3/uL (4.50-10.00)
[2023-11-17 10:57] LABS: BUN/Creat Ratio 10.12 Ratio (12.00-20.00); Blood Urea Nitrogen 8.1 mg/dL (9.0-27.0); Carbon Dioxide 22.3 mmol/L (21.6-31.8); Chloride 104 mmol/L (96-109); Glucose 122 mg/dL (70-110); Potassium 3.4 mmol/L (3.5-5.5); Sodium 137 mmol/L (135-145)
[2023-11-17 10:58] LABS: ALT 25 U/L (10-49); AST 22 U/L (14-35); Albumin 3.8 g/dL (3.8-4.9); Albumin/Globulin Ratio 1.81 Ratio (1.60-3.17); Alkaline Phosphatase 61 U/L (41-126); Calcium 8.6 mg/dL (8.7-10.3); Globulin 2.1 g/dL (1.6-3.3); Total Bilirubin 1.6 mg/dL (0.3-1.2); Total Protein 5.9 g/dL (6.2-8.2)
[2023-11-17 11:55] LABS: Glucose,Whole Blood 122 mg/dL (70-110)
[2023-11-17 13:30] VITALS: BP 113/79; PULSE 79; RESP 20; TEMP 99
--- NOTE | 2023-11-17 14:56 | P.PN ---
Subjective Progress Note Date: 11/17/23 CHIEF COMPLAINT: Abdominal pain HISTORY OF PRESENT ILLNESS: Patient reports he is feeling better. His abdominal pain has improved. He is having diarrhea and flatus. Patient reports that he usually has loose stools that is normal for him. He tolerated regular diet for lunch. He is afebrile. He has been up and ambulating. He feels ready for discharge. Afebrile. WBC 8.02 Patient seen and examined with Dr. Salcedo PHYSICAL EXAM: VITAL SIGNS: Reviewed. GENERAL: Well-developed in no acute distress. HEENT: No sclera icterus. Extraocular movements grossly intact. Moist buccal mucosa. Head is atraumatic, normocephalic. ABDOMEN: Soft. Nondistended. Nontender. NEUROLOGIC: Alert and oriented. Cranial nerves II through XII grossly intact. ASSESSMENT: 1. Abdominal pain. Possible gastroenteritis. Patient does not appear to have evidence of bowel obstruction. He is having flatus. 2. Possible ileus. Resolved PLAN: -Diet advanced to regular from the afternoon -Patient tolerating diet. Pain is improved. He is stable for discharge. [employer] note has been reviewed by physician. Signing provider agrees with the documented findings, assessment, and plan of care. Objective - Vital Signs Vital signs: Vital Signs Temp 98.5 F 11/17/23 07:03 Pulse 84 11/17/23 07:03 Resp 18 11/17/23 07:03 BP 123/79 11/17/23 07:03 Pulse Ox 98 11/17/23 07:03 FiO2 Intake & Output 11/16/23 11/17/23 11/17/23 18:59 06:59 18:59 Intake Total 590 Balance 590 Intake: Oral 590 Other: Voiding Method Toilet Toilet # Voids 2 # Bowel Movements 1 - Labs CBC & Chem 7: 11/17/23 05:32 11/17/23 05:32 Labs: Abnormal Lab Results - Last 24 Hours (Table) 11/16/23 11/16/23 11/17/23 Range/Units 17:06 20:08 05:32 MCH 32.9 H (27.0-32.0) pg Potassium (3.5-5.5) mmol/L BUN (9.0-27.0) mg/dL BUN/Creatinine Ratio (12.00-20.00) Ratio Glucose (70-110) mg/dL POC Glucose (mg/dL) 156 H 134 H (70-110) mg/dL Calcium (8.7-10.3) mg/dL Total Bilirubin (0.3-1.2) mg/dL Total Protein (6.2-8.2) g/dL 11/17/23 11/17/23 11/17/23 Range/Units 05:32 07:02 11:54 MCH (27.0-32.0) pg Potassium 3.4 L (3.5-5.5) mmol/L BUN 8.1 L (9.0-27.0) mg/dL BUN/Creatinine Ratio 10.12 L (12.00-20.00) Ratio Glucose 122 H (70-110) mg/dL POC Glucose (mg/dL) 120 H 122 H (70-110) mg/dL Calcium 8.6 L (8.7-10.3) mg/dL Total Bilirubin 1.6 H (0.3-1.2) mg/dL Total Protein 5.9 L (6.2-8.2) g/dL
--- NOTE | 2023-11-19 17:32 | P.DS ---
Providers Date of admission: 11/15/23 17:16 Attending physician: Luis Eduardo Pa Consults: 11/15/23 17:19 Consult Physician Routine Consulting Provider: Shakir Salcedo Consult Reason/Comments: ileus vs SBO Do you want consulting provider notified?: Yes Primary care physician: Luis Eduardo Pa Hospital Course: Date of service for this note is 11/17/2023. Patient seen and examined by me at bedside Diagnoses: Acute gastroenteritis, could be viral, improved Dehydration secondary to above improved Mild leukocytosis most likely secondary to above back to baseline This is a history and physical a 43-year-old white male with known history of diabetes who was recently on vacation and came back having significant left lower quadrant abdominal pain and diarrhea as noted. CT scan showed partial small bowel obstruction/ileus. C. difficile was checked and was negative. Lactic acid was 1.2. Hemoglobin A1c 5.7% Patient evaluated by surgery team. He showed interval improvement. This morning patient was fully awake and oriented, minimal with no abdominal pain no vomiting and he tolerates liquid diet. He told me he wants to advance his diet to regular diet and he tolerates that as well. Surgery team evaluated him there after and found him also doing well and came for discharge. Patient himself told me he is ready to go home today. As he is back to his baseline. Patient denies chest pain. No any other new complaint. Patient was cleared for discharge by surgery team Problems and management plan were discussed with the patient and he verbalized understanding and acceptance Patient was found stable and can be discharged home in guarded prognosis however he needs follow-up as an outpatient. Patient was instructed to follow up with PCP Dr. Pa within one week and patient agrees Patient was instructed to follow-up with his surgeon Dr. Salcedo in 1 week after discharge and he agrees Physical exam Gen: patient is a AAOx3, no distress CVS: S1-S2, RRR, no murmur Lungs: B/L CTA, no wheezing Abdomen: soft, no distention, no tenderness, positive bowel sounds Extremity: no leg edema or induration Time spent more than 35 minutes Patient Condition at Discharge: Poor Plan - Discharge Summary Discharge Rx Participant: Yes New Discharge Prescriptions: Continue Bisoprolol-Hctz 10-6.25 mg [Ziac 10-6.25 MG] 1 tab PO DAILY Tirzepatide [Mounjaro] 10 mg SQ GEE Empagliflozin [Jardiance] 25 mg PO DAILY Discharge Medication List Bisoprolol-Hctz 10-6.25 mg [Ziac 10-6.25 MG] 1 tab PO DAILY 11/06/17 [History] Empagliflozin [Jardiance] 25 mg PO DAILY 11/15/23 [History] Tirzepatide [Mounjaro] 10 mg SQ GEE 11/15/23 [History] Follow up Appointment(s)/Referral(s): Luis Eduardo Pa MD [Primary Care Provider] - 11/24/23 5:20 pm Shakir Salcedo MD [STAFF PHYSICIAN] - 1 Week (Patient prefers to make own appt. ) Patient Instructions/Handouts: Low Fiber Diet (DC), Ileus (DC) Activity/Diet/Wound Care/Special Instructions: heart healthy low fiber diet activity is restricted till you see your doctor Discharge Disposition: HOME SELF-CARE
== END 2023-11-17 16:18 | disposition home or self-care (01) | DRG 392 ==
LOC: EC 15:29 → 5NMEDONC 17:16
PROVIDERS: ADMIT Family Medicine; ATTEND Family Medicine
DX: K52.9 Noninfective gastroenteritis and colitis, unspecified (principal); K56.7 Ileus, unspecified; E86.0 Dehydration; D72.829 Elevated white blood cell count, unspecified; K21.9 Gastro-esophageal reflux disease without esophagitis; E11.9 Type 2 diabetes mellitus without complications; I10 Essential (primary) hypertension; K76.0 Fatty (change of) liver, not elsewhere classified; G47.30 Sleep apnea, unspecified; F41.9 Anxiety disorder, unspecified; F32.A Depression, unspecified; F17.200 Nicotine dependence, unspecified, uncomplicated; E80.6 Other disorders of bilirubin metabolism; D75.1 Secondary polycythemia; Z79.84 Long term (current) use of oral hypoglycemic drugs
CPT/HCPCS: 36415; 80053; 82150; 82248; 83036; 83605; 83690; 84484; 85025; 85610; 85730; 87324; 93005; 96361; 96374; 96375; 96376; 99285

== ENCOUNTER → 2023-11-15 | Outpatient (CLI) | payer BC ==
--- NOTE | 2023-11-15 14:32 | CT ---
EXAMINATION TYPE: CT abdomen pelvis wo con CT DLP: 1549.60 mGycm, Automated exposure control for dose reduction was used. DATE OF EXAM: 11/15/2023 2:16 PM COMPARISON: 05/14/2023 CLINICAL INDICATION:Male, 43 years old with history of LLQ pain; LLQ pain TECHNIQUE: Axial CT abdomen pelvis wo con;Sagittal and coronal reformats were created on a separate workstation. Contrast used: mL of , (none if empty) Oral contrast used: without Oral Contrast (none if empty) FINDINGS: LOWER CHEST: Unremarkable ABDOMEN LIVER: Diffusely hypoattenuating parenchyma. GALLBLADDER AND BILE DUCTS: The gallbladder is surgically absent. PANCREAS: Unremarkable. SPLEEN: Unremarkable. ADRENAL GLANDS: Unremarkable. KIDNEYS AND URETERS: No evidence of hydronephrosis or renal calculus. The ureters are unremarkable. PELVIS BLADDER: Unremarkable REPRODUCTIVE: Unremarkable. ABDOMEN & PELVIS STOMACH AND BOWEL: No evidence of bowel obstruction. Loops of small bowel measuring up to 0.0 cm note d throughout the abdomen. There is paucity of stool within the colon. PERITONEUM/RETROPERITONEUM: No evidence of pneumoperitoneum or free fluid. VASCULATURE: No evidence of aortic aneurysm. MUSCULOSKELETAL: No acute osseous abnormalities LYMPH NODES: No gross evidence for lymphadenopathy. SOFT TISSUE/ABDOMINAL WALL: Fat-containing left inguinal hernia. Fat-containing ventral wall hernia f at-containing umbilical hernia. IMPRESSION: 1. Dilation of multiple loops of small bowel throughout the abdomen without definitive transition po int. Correlate for ileus versus small bowel obstruction given the paucity of stool within the colon. Dedicated small bowel follow up recommended. 2. No other evidence for acute left lower quadrant process. 3. Hepatic steatosis.
== END | disposition home or self-care (01) ==
LOC: RADCTMAIN 12:57
PROVIDERS: ATTEND Family Medicine
DX: K76.0 Fatty (change of) liver, not elsewhere classified (principal)
CPT/HCPCS: 74176